=== PATIENT | female | born 1970 | race Caucasian/White ===

== ENCOUNTER 2018-03-25 11:37 | Inpatient (IN) | payer OTHER ==
[~2018-03-25 11:37] MED LIST: SODIUM CHLORIDE 0.9% (PF) 10 ML VIAL ONE; niCARdipine 25 MG/10 ML VIAL ONE
[2018-03-25] MEDS ORDERED: MIDAZOLAM 2 MG/2 ML VIAL ONE (11:43)
[2018-03-25] MEDS ORDERED: LIDOCAINE 2% INJ 20 MG/ML (20 ML MDV) ONE (11:43)
[2018-03-25] MEDS ORDERED: LIDOCAINE 2% INJ 20 MG/ML SQ ONE (11:53)
[2018-03-25] MEDS ORDERED: SODIUM CHLORIDE 0.9% 1,000 ML IV ONE (11:54)
[2018-03-25] MEDS ORDERED: MIDAZOLAM 2 MG/2 ML VIAL IV ONE (11:56)
[2018-03-25] MEDS ORDERED: BIVALIRUDIN BOLUS 250 MG/50 ML IV ONE (12:02)
[2018-03-25] MEDS ORDERED: CLOPIDOGREL 75 MG TAB ONE (12:03)
[2018-03-25] MEDS: NITROGLYCERIN 1000MCG/10ML SYRINGE INTRACORON ONE ×2 (12:03→12:11)
[2018-03-25] MEDS ORDERED: BIVALIRUDIN 250 MG in SODIUM CHLORIDE 0.9% 40 ML IV ONE (12:03)
[2018-03-25] MEDS ORDERED: ATROPINE SULFATE 0.1 MG/ML 10ML SYRINGE IV ONE (12:09)
[2018-03-25] MEDS ORDERED: CLOPIDOGREL 75 MG TAB PO ONE (12:10)
[2018-03-25] MEDS ORDERED: ONDANSETRON 4 MG/2 ML VIAL ONE ×2 (12:18→12:23)
[2018-03-25] MEDS ORDERED: ONDANSETRON 4 MG/2 ML VIAL IVP ONE ×2 (12:20→12:24)
[2018-03-25] MEDS ORDERED: IOPAMIDOL-370 125ML BTL INJ ONE (12:21)
[2018-03-25] MEDS ORDERED: NITROGLYCERIN SL TABS 0.4 MG TAB SUBLINGUAL PRN (12:29)
[2018-03-25] MEDS ORDERED: ATROPINE SULFATE 0.1 MG/ML 10ML SYRINGE IV PRN (12:29)
[2018-03-25] MEDS ORDERED: RX INFO: IV CONTRAST WAS GIVEN 1 EACH MISC MISCELLANE PRN (12:29)
[2018-03-25] MEDS ORDERED: ZOLPIDEM 5 MG TAB PO PRN (12:29)
[2018-03-25] MEDS ORDERED: MAG HYDROX/AL HYDROX/SIMETH 30 ML CUP PO PRN (12:29)
[2018-03-25] MEDS ORDERED: SODIUM CHLORIDE 0.9% 1,000 ML IV SCH (12:30)
--- NOTE | 2018-03-25 12:39 | P.CRDCN ---
History of Present Illness Consult date: 03/25/18 Chief complaint: chest discomfort History of present illness: This is a pleasant 77-year-old female patient with long history of smoking and very significant family history of coronary artery disease presented to the emergency room at [facility] complaining of chest discomfort. She was in her usual state of health until yesterday when she started experiencing chest discomfort in the mid of the chest with radiation to the jaw and it was associated with sweating. She did not come to the emergency room last night but this morning the discomfort continues and was radiating to her back. It was severe enough to bring her to the emergency room. In the ER the EKG showed sinus rhythm with inferior ST elevation [place]. She was also bradycardic with heart rate in the 50s and she was also slightly hypotensive. The patient was transferred immediately to [facility] where she underwent an emergent heart catheterization and was found to have an acute total occlusion of the mid RCA which is a large caliber vessel and a dominant vessel. She underwent successful stenting of the mid RCA with a good angiographic results and without any complication and using a drug-eluting stent. The left main, left circumflex, and left anterior descending artery where angiographically normal. The patient tolerated the procedure very well. The procedure was performed from the right groin approach. In terms of past medical history the patient does not have any diabetes or hypertension or dyslipidemia. She does have a long history of smoking and very significant family history of coronary artery disease. Medications and Allergies Allergies Allergy/AdvReac Type Severity Reaction Status Date / Time Penicillins Allergy Anaphylaxis Verified 03/25/18 11:49 Physical Exam Vitals: Intake and Output 03/24/18 03/25/18 03/25/18 22:59 06:59 14:59 Intake Total 200 Balance 200 Intake: IV 200 Other: Weight 92.2 kg - Constitutional General appearance: no acute distress - Respiratory Respiratory: bilateral: CTA - Cardiovascular Rhythm: regular Heart sounds: normal: S1, S2 Results Current Medications Generic Name Dose Route Start Last Admin Trade Name Freq PRN Reason Stop Dose Admin Al Hydroxide/Mg Hydroxide 30 ml 03/25/18 12:29 Maalox PO Q4HR PRN Heartburn Aspirin 325 mg 03/26/18 09:00 Aspirin PO DAILY [facility] Atorvastatin Calcium 80 mg 03/25/18 21:00 Lipitor PO HS ANITA Atropine Sulfate 0.5 mg 03/25/18 12:29 Atropine IV ONCE PRN Symptomatic Bradycardia Clopidogrel Bisulfate 75 mg 03/26/18 12:31 Plavix PO DAILY [facility] Sodium Chloride 1,000 mls @ 100 mls/hr 03/25/18 12:30 Saline 0.9% IV 03/25/18 18:31 .Q10H ANITA Lisinopril 2.5 mg 03/26/18 09:00 Zestril PO DAILY ANITA Metoprolol Tartrate 12.5 mg 03/25/18 21:00 Lopressor PO BID ANITA Miscellaneous Information 1 each 03/25/18 12:29 Rx Info: Iv Contrast Was Given MISCELLANE 03/27/18 12:29 DAILY PRN Per Protocol Nitroglycerin 0.4 mg 03/25/18 12:29 Nitrostat SUBLINGUAL Q5M PRN Chest Pain Zolpidem Tartrate 5 mg 03/25/18 12:29 Ambien PO HS PRN Insomnia Intake and Output 03/24/18 03/25/18 03/25/18 22:59 06:59 14:59 Intake Total 200 Balance 200 Intake: IV 200 Other: Weight 92.2 kg Patient Weight 03/26/18 06:59 Weight 92.2 kg Assessment and Plan Assessment: assessment #[address] elevation myocardial infarction. #2 significant history of smoking #3 significant family history of coronary artery disease. Plan #1 the patient underwent successful stenting of the RCA #2 she would be on dual antiplatelet therapy along with high intensity statin as well as metoprolol and lisinopril #3 obtain an echocardiogram was Doppler to assess the LV function #4 smoking cessation was discussed with the patient as well #5 follow-up with the patient. Thank you for allowing us participate in her care and we will continue following up with the patient.
--- NOTE | 2018-03-25 13:05 | LTR ---
March 25, 2018 Re: Leopoldo Elvie Dear Dr. Mace: Ms. Elvie Mina presented to the emergency room at [facility] complaining of chest discomfort and she was diagnosed with acute inferior ST-elevation AL. She was transferred emergently to [facility] where she underwent a heart catheterization and that revealed acute total occlusion of the right coronary artery which was stented with good angiographic results. Thank you for allowing me to participate in her care and please do not hesitate to call if you have any question or concern. Sincerely, Osbaldo Nicholas MD MMANITAL / NADYAN: [id number] /
--- NOTE | 2018-03-25 13:11 | CC ---
CARDIAC CATHETERIZATION REPORT CARDIAC CATHETERIZATION AND PERCUTANEOUS CORONARY INTERVENTION DATE OF SERVICE: 03/25/2018 PERFORMING PHYSICIAN: Osbaldo Nicholas MD. PROCEDURE PERFORMED: 1. Selective right and left coronary angiogram. 2. Left heart catheterization. 3. Successful stenting of the mid RCA using 2.75 x 23 mm Xience SHIRLEY with good angiographic results. INDICATION: This is a pleasant 47-year-old female patient with significant history of smoking and significant family history of coronary artery disease presented to the emergency room at [facility] complaining of chest discomfort for the last 24 hours. She was found to be in acute inferior ST-elevation myocardial infarction and was transferred to [facility] to undergo a heart catheterization. APPROACH: Right common femoral artery. COMPLICATION: None. LEVEL OF SEDATION: Moderate with sedation length of 31 minutes. PROCEDURE DESCRIPTION: After obtaining an informed consent, the patient was brought to cardiac catheterization laboratory technician. The right common femoral artery was cannulated using micropuncture technique, and a micropuncture wire passed easily then I placed a 6-Irish sheath in the right common femoral artery. After that, I did selective right and left coronary angiogram using JR4 and JL4 catheters. I did intervene on the RCA after that, please see a separate paragraph for that. Then I did left heart catheterization using 6-Irish pigtail catheter. After that, I did close the groin using the Angio-Seal device. The procedure was completed without any complication. SELECTIVE CORONARY ANGIOGRAM: 1. The RCA is a large caliber vessel and it is a dominant vessel. The RCA is acutely and totally occluded in the midportion. 2. The left main is angiographically normal. It bifurcates into left circumflex and left anterior descending artery. 3. The left circumflex is a large caliber vessel. It is a nondominant vessel. The left circumflex system appeared to be angiographically normal. It gives rise into 2 obtuse marginal branches they are angiographically normal. 4. The LAD; the proximal LAD appeared to have mild disease only. The mid LAD appeared to be angiographically normal. The LAD distally is angiographically normal as well. The LAD gives rise in the midportion into a diagonal branch, seems to be angiographically normal. HEMODYNAMICS: The left ventricular end-diastolic pressure was 16 mmHg and no gradient was identified across the aortic valve. PCI OF THE RCA: Anticoagulation was initiated using Angiomax. Subsequently the JR4 guide and the RCA was engaged. The ronnie wire was used to wire the RCA. Subsequently I did PTCA ballooning using 2.5 x 12 mm balloon. After that I did stenting of the mid RCA using 2.75 x 23 mm Xience SHIRLEY where the stent was positioned under fluoroscopy guidance and deployed under 16 atmospheres for 20 seconds. I did post dilate the stent using 3.0 mm balloon. The procedure was completed without any complication. CONCLUSION: 1. Acute inferior ST-elevation myocardial infarction. 2. Acute total occlusion of the mid RCA which was stented using drug-eluting stent with good angiographic results and without any complication. 3. Mild disease involving the left coronary system. POSTPROCEDURE MANAGEMENT: 1. Dual antiplatelet therapy along with high-intensity statin. 2. Smoking cessation. 3. Follow up with the patient. 4. Echocardiogram with Doppler as well. MMODL / IJN: [id number] /
[2018-03-25] MEDS ORDERED: SODIUM CHLORIDE 0.9% 250 ML IV ONE (19:19)
[2018-03-25] MEDS: SODIUM CHLORIDE 0.9% 1,000 ML IV SCH (20:11)
[2018-03-25] MEDS ORDERED: ALPRAZolam 0.25 MG TAB PO PRN (20:28)
[2018-03-25] MEDS ORDERED: ONDANSETRON 4 MG/2 ML VIAL IVP PRN (20:29)
[2018-03-25] MEDS: METOPROLOL TARTRATE 12.5 MG TAB PO SCH (20:29)
[2018-03-25] MEDS ORDERED: DOPamine DRIP 800 MG in DEXTROSE/WATER 1 500ML.BAG IV SCH (20:30)
--- NOTE | 2018-03-25 20:37 | ECHOF ---
Referral Reason:ACS MEASUREMENTS -------- HEIGHT: 170.2 cm WEIGHT: 92.1 kg BP: RVIDd: 3.7 cm (< 3.3) IVSd: 1.3 cm (0.6 - 1.1) LVIDd: 4.1 cm (3.9 - 5.3) LVPWd: 1.1 cm (0.6 - 1.1) IVSs: 1.5 cm LVIDs: 2.8 cm LVPWs: 1.7 cm Ao Diam: 3.2 cm (2.0 - 3.7) AV Cusp: 1.7 cm (1.5 - 2.6) LA Diam: 3.0 cm (2.7 - 3.8) MV EXCURSION: 11.453 mm (> 18.000) MV EF SLOPE: 79 mm/s (70 - 150) EPSS: 0.6 cm MV E Pritesh: 0.71 m/s MV DecT: 223 ms MV A Pritesh: 0.53 m/s MV E/A Ratio: 1.33 RAP: 5.00 mmHg RVSP: 22.12 mmHg FINDINGS -------- Sinus rhythm. This was a technically good study. The left ventricular size is normal. There is mild concentric left ventricular hypertrophy. Overa ll left ventricular systolic function is mildly impaired with, an EF between 45 - 50 %. Basal infer ior LV wall motion is hypokinetic. The right ventricle is mild to moderately enlarged. The left atrium is normal in size. The right atrium is normal in size. The aortic valve is trileaflet, and appears structurally normal. No aortic stenosis or regurgitation. The mitral valve is normal. There is trace mitral regurgitation. Mild tricuspid regurgitation present. The right ventricular systolic pressure, as measured by Doppl er, is 22.12mmHg. There is no pulmonic regurgitation present. The aortic root size is normal. There is no pericardial effusion. CONCLUSIONS -------- 1. Sinus rhythm. 2. This was a technically good study. 3. The left ventricular size is normal. 4. There is mild concentric left ventricular hypertrophy. 5. Overall left ventricular systolic function is mildly impaired with, an EF between 45 - 50 %. 6. Basal inferior LV wall motion is hypokinetic. 7. The right ventricle is mild to moderately enlarged. 8. The left atrium is normal in size. 9. The aortic valve is trileaflet, and appears structurally normal. No aortic stenosis or regurgitati on. 10. There is trace mitral regurgitation. 11. Mild tricuspid regurgitation present. 12. The right ventricular systolic pressure, as measured by Doppler, is 22.12mmHg. 13. There is no pulmonic regurgitation present. 14. The aortic root size is normal. 15. There is no pericardial effusion. PUBLIC POLICY MEDIATOR: Radha Sanches RDCS
[2018-03-25] MEDS: ATORVASTATIN 80 MG TAB PO SCH (21:35)
[2018-03-25] MEDS: NICOTINE 21MG/24HR PATCH TRANSDERM SCH (21:36)
[2018-03-25] MEDS ORDERED: SODIUM CHLORIDE 0.9% 500 ML IV ONE (21:45)
[2018-03-26] MEDS: SODIUM CHLORIDE 0.9% 1,000 ML IV SCH (04:00)
[2018-03-26 04:43] LABS: Basophils % (A) 0 %; Eosinophils # (A) 0.1 k/uL (0-0.7); Eosinophils % (A) 1 %; HCT 35.7 % (34.0-46.0); HGB 11.8 gm/dL (11.4-16.0); Lymphocytes # (A) 3.6 k/uL (1.0-4.8); Lymphocytes % (A) 26 %; MCH 29.9 pg (25.0-35.0); MCV 90.7 fL (80.0-100.0); Mean Platelet Volume 6.6; Monocytes # (A) 0.6 k/uL (0-1.0); Monocytes % (A) 5 %; Neutrophils # (A) 9.6 k/uL (1.3-7.7); Neutrophils % (A) 68 %; Platelet Count 382 k/uL (150-450); RBC 3.94 m/uL (3.80-5.40); RDW 14.3 % (11.5-15.5); WBC 14.1 k/uL (3.8-10.6)
[2018-03-26 05:11] LABS: Anion Gap 8 mmol/L; Blood Urea Nitrogen 9 mg/dL (7-17); Calcium 8.2 mg/dL (8.4-10.2); Carbon Dioxide 21 mmol/L (22-30); Chloride 112 mmol/L (98-107); Glucose 106 mg/dL (74-99); Magnesium 1.7 mg/dL (1.6-2.3); Phosphorus 3.5 mg/dL (2.5-4.5); Potassium 3.9 mmol/L (3.5-5.1); Sodium 141 mmol/L (137-145)
[2018-03-26] MEDS ORDERED: POTASSIUM CHLORIDE ER 20 MEQ TAB.ER PO SCH (06:00)
[2018-03-26] MEDS: ESCITALOPRAM 10 MG TAB PO SCH (08:26)
[2018-03-26] MEDS: ASPIRIN 325 MG TAB PO SCH (08:26)
[2018-03-26 09:43] VITALS: BMI 31.8
[2018-03-26] MEDS ORDERED: MAGNESIUM OXIDE 400 MG TAB PO STA (13:17)
[2018-03-26] MEDS: MAGNESIUM SULFATE-D5W PMX 1 GM in DEXTROSE/WATER 1 100ML.BAG IVPB SCH (15:47)
[2018-03-26] MEDS: LISINOPRIL 2.5 MG TAB PO SCH (15:47)
[2018-03-26] MEDS: METOPROLOL TARTRATE 12.5 MG TAB PO SCH (15:48)
[2018-03-26] MEDS: CLOPIDOGREL 75 MG TAB PO SCH (15:51)
[2018-03-26] MEDS: ALPRAZolam 1 MG TAB PO PRN (15:51)
[2018-03-26] MEDS: PANTOPRAZOLE 40 MG TABLET PO SCH (16:03)
--- NOTE | 2018-03-26 18:08 | P.PN ---
Subjective Progress Note Date: 03/26/18 This is a 47-year-old female who was admitted with acute inferior wall MS. Patient had a stent placement of the RCA by Dr. Lassiter. Patient has remained stable overnight. Her groin is soft. Patient is bradycardic with rates in the 40s and 50s. Her blood pressure is about 100. She is tolerating this rate fairly well. No complaints of shortness of breath or dizziness. Patient is being transferred to telemetry unit and increase activity as tolerated. We'll going to get thyroid function studies. We'll may get an echocardiogram tomorrow. Meanwhile, we'll hold the beta blockers Objective - Vital Signs Vital signs: Vital Signs Temp 97.9 F 03/26/18 12:00 Pulse 56 L 03/26/18 12:00 Resp 17 03/26/18 12:00 BP 89/53 03/26/18 12:00 Pulse Ox 95 03/26/18 12:00 Intake & Output 03/25/18 03/26/18 03/26/18 18:59 06:59 18:59 Intake Total 800 2150.002 625 Output Total 850 1 Balance -50 2149.002 625 Weight 92 kg 92.3 kg 92.3 kg Intake: IV 200 1745 625 Sodium Chloride 0.9% 1, 1245 625 000 ml @ 125 mls/hr IV . Q8H [facility] Rx#:[id number] Sodium Chloride 0.9% 250 250 ml @ 999 mls/hr IV .Q16M ONE Rx#:[id number] Sodium Chloride 0.9% 500 250 ml @ 999 mls/hr IV .Q31M ONE Rx#:[id number] Intake, IV Titration 600 105.002 Amount DOPamine DRIP 800 mg In 5.002 Dextrose/Water 1 500ml. bag @ 3 MCG/KG/MIN 10.35 mls/hr IV .Q24H ANITA Rx#: [id number] Sodium Chloride 0.9% 1, 600 100 000 ml @ 100 mls/hr IV . Q10H ANITA Rx#:[id number] Oral 300 Output: Urine 850 0 Emesis 1 Other: Voiding Method Bedpan # Voids 1 1 - Exam GENERAL EXAM: Patient is alert and oriented and doesn't appear to be in any acute distress HEENT: Normocephalic. Normal reaction of pupils, equal size, normal range of extraocular motion. No erythema or exudates in the throat. NECK: No masses, no nuchal rigidity. CHEST: No chest wall deformity. LUNGS: Equal air entry with no crackles or wheeze. HEART: S1 and S2 normal with no audible mumurs or gallops. Regular rhythm, femorals equal on both sides.. ABDOMEN: No hepatosplenomegaly, normal bowel sounds, no guarding or rigidity. SKIN: No rashes CENTRAL NERVOUS SYSTEM: No focal deficits. EXTREMITIES: No cyanosis, clubbing or edema. - Labs CBC & Chem 7: 03/26/18 04:12 03/26/18 04:12 Labs: Abnormal Lab Results - Last 24 Hours (Table) 03/26/18 03/26/18 Range/Units 04:12 04:12 WBC 14.1 H (3.8-10.6) k/uL Neutrophils # 9.6 H (1.3-7.7) k/uL Chloride 112 H (98-107) mmol/L Carbon Dioxide 21 L (22-30) mmol/L Glucose 106 H (74-99) mg/dL Calcium 8.2 L (8.4-10.2) mg/dL Assessment and Plan (1) Bradycardia Current Visit: Yes Status: Acute Code(s): R00.1 - BRADYCARDIA, UNSPECIFIED SNOMED Code(s): 79187739 (2) STEMI (ST elevation myocardial infarction) Current Visit: Yes Status: Acute Code(s): I21.3 - ST ELEVATION (STEMI) MYOCARDIAL INFARCTION OF [facility] SITE SNOMED Code(s): 187120392 Plan: Patient could be transferred to telemetry unit. Increase activity as tolerated. Hold beta blockers. Obtain thyroid function studies.
[2018-03-26] MEDS: ATORVASTATIN 80 MG TAB PO SCH (23:22)
[2018-03-26] MEDS: NICOTINE 21MG/24HR PATCH TRANSDERM SCH (23:25)
--- NOTE | 2018-03-27 00:10 | P.CONS ---
History of Present Illness - History of Present Illness This is a pleasant 77-year-old female patient with long history of smoking and very significant family history of coronary artery disease presented to the emergency room at [facility] complaining of chest pain, which is non specific ,sever, radiating to the back , pt found to have inferior STEMI in her EKG , she was admitted for cardiac cath, stent placement of the RCA by Dr. Lassiter. today we were asked to see the pt while in ICU, was lying in bed not in distress, no chest pain or dyspena , no abd pain or fever, pt was noticed to be bradycardic at 50s , cardiology team are aware , BB were held, TSH: pending and Echo: pending Review of Systems 14 point systemic review were negative except what is mentioned in the HPI Past Medical History Past Medical History: Coronary Artery Disease (CAD), GERD/Reflux, Myocardial Infarction (AL) Additional Past Medical History / Comment(s): Hyperlipidemia, Hypotension, Last Myocardial Infarction Date:: 03/25/18 History of Any Multi-Drug Resistant Organisms: None Reported Past Surgical History: Heart Catheterization With Stent, Hysterectomy, Tonsillectomy Past Anesthesia/Blood Transfusion Reactions: No Reported Reaction Date of Last Stent Placement:: 03/25/18 Past Psychological History: Anxiety, Depression, Panic Disorder, PTSD Additional Psychological History / Comment(s): Sees a psychiatrist regularly Smoking Status: Current every day smoker Past Alcohol Use History: None Reported - Past Family History Mother Family Medical History: Coronary Artery Disease (CAD) Father Family Medical History: Coronary Artery Disease (CAD) Medications and Allergies Home Medications Medication Instructions Recorded Confirmed Type ALPRAZolam [Xanax] 1 mg PO BID 03/25/18 03/26/18 History Escitalopram [Lexapro] 10 mg PO DAILY 03/25/18 03/26/18 History Omeprazole 20 mg PO DAILY 03/25/18 03/25/18 History Allergies Allergy/AdvReac Type Severity Reaction Status Date / Time dopamine Allergy Rapid Verified 03/26/18 07:22 Heart Rate Penicillins Allergy Anaphylaxis Verified 03/25/18 13:48 ciprofloxacin [From Cipro] AdvReac Nausea & Verified 03/25/18 13:48 Vomiting & Diarrhea Tetracyclines AdvReac "RUINED Verified 03/25/18 13:48 TEETH" Physical Exam Vitals: Vital Signs Temp Pulse Pulse Resp BP BP Pulse Ox 03/26/18 23:19 16 03/26/18 23:16 98.0 F 45 L 16 106/75 94 L 03/26/18 20:00 98.8 F 44 L 16 98/66 97 03/26/18 17:00 97.6 F 46 L 16 95 03/26/18 12:00 97.9 F 56 L 17 89/53 95 03/26/18 11:00 48 L 13 91/57 92 L 03/26/18 10:00 47 L 16 89/62 95 03/26/18 09:00 47 L 15 86/49 96 03/26/18 08:00 98.0 F 49 L 16 82/67 94 L 03/26/18 07:00 50 L 16 85/60 97 03/26/18 06:30 48 L 16 80/54 97 03/26/18 06:00 50 L 20 82/55 96 03/26/18 05:30 48 L 22 77/50 96 03/26/18 05:00 50 L 23 85/47 97 03/26/18 04:30 97.9 F 48 L 23 76/52 96 03/26/18 04:00 58 L 20 81/56 97 03/26/18 03:30 51 L 17 92/57 97 03/26/18 03:00 49 L 22 92/57 97 03/26/18 02:30 51 L 18 92/53 97 03/26/18 02:00 51 L 25 H 91/56 96 03/26/18 01:30 51 L 22 81/66 97 03/26/18 01:00 50 L 23 81/55 97 03/26/18 00:30 55 L 22 84/58 97 03/26/18 00:00 97.2 F L 50 L 23 90/60 97 Intake and Output 03/26/18 03/26/18 03/27/18 14:59 22:59 06:59 Intake Total 625 500 Output Total 0 Balance 625 500 0 Intake: IV 625 Sodium Chloride 0.9% 1, 625 000 ml @ 125 mls/hr IV . Q8H [facility] Rx#:[id number] Oral 500 Output: Emesis 0 Other: Voiding Method Toilet Toilet # Voids 1 0 1 Weight 92.3 kg general : AAOx3 . no distress H&N: atrumatic , normocephalic CVS: S1,S2 , Regular rhythm but slow , no murmur Lungs: B/L CTA, no wheezing abd: soft, NT ,ND, +ve BS Ext: no edema Results CBC & Chem 7: 03/26/18 04:12 03/26/18 04:12 Labs: Abnormal Lab Results - Last 24 Hours (Table) 03/26/18 03/26/18 Range/Units 04:12 04:12 WBC 14.1 H (3.8-10.6) k/uL Neutrophils # 9.6 H (1.3-7.7) k/uL Chloride 112 H (98-107) mmol/L Carbon Dioxide 21 L (22-30) mmol/L Glucose 106 H (74-99) mg/dL Calcium 8.2 L (8.4-10.2) mg/dL Assessment and Plan Assessment: -Acute infecior STEMI, s/p cardiac cath and stent placement -HTN Plan: pt symptoms are improving, no cp or dyspnea, pt remains bradycardic about 50s, and BP is on low-normal side, pt is asymptomatic , lying in bed ,cardilogy team recommended TSH and echocardiogram which are still pending . pt is on asa, plavix and statin. she is on lexapro for mood disorder however she denies to me depression currently. on Lisinopril for HTN, xanax for anxiety
[2018-03-27 04:35] LABS: Basophils % (A) 0 %; Eosinophils % (A) 0 %; HCT 34.9 % (34.0-46.0); HGB 11.2 gm/dL (11.4-16.0); Lymphocytes # (A) 3.5 k/uL (1.0-4.8); Lymphocytes % (A) 40 %; MCH 29.6 pg (25.0-35.0); MCHC 32.2 g/dL (31.0-37.0); Mean Platelet Volume 6.8; Monocytes # (A) 0.5 k/uL (0-1.0); Monocytes % (A) 6 %; Neutrophils # (A) 4.7 k/uL (1.3-7.7); Neutrophils % (A) 53 %; Platelet Count 318 k/uL (150-450); RDW 14.1 % (11.5-15.5); WBC 8.8 k/uL (3.8-10.6)
[2018-03-27 04:44] LABS: Anion Gap 5 mmol/L; Blood Urea Nitrogen 6 mg/dL (7-17); Calcium 8.8 mg/dL (8.4-10.2); Carbon Dioxide 27 mmol/L (22-30); Chloride 109 mmol/L (98-107); Glucose 92 mg/dL (74-99); Magnesium 1.9 mg/dL (1.6-2.3); Potassium 3.8 mmol/L (3.5-5.1); Sodium 141 mmol/L (137-145)
[2018-03-27 04:54] VITALS: TEMP 98.1
[2018-03-27] MEDS ORDERED: POTASSIUM CHLORIDE ER 20 MEQ TAB.ER PO SCH (07:00)
[2018-03-27] MEDS: PANTOPRAZOLE 40 MG TABLET PO SCH (09:46)
[2018-03-27] MEDS: ASPIRIN 325 MG TAB PO SCH (09:46)
[2018-03-27] MEDS: ALPRAZolam 1 MG TAB PO PRN (09:46)
[2018-03-27] MEDS: ESCITALOPRAM 10 MG TAB PO SCH (09:47)
[2018-03-27] MEDS: CLOPIDOGREL 75 MG TAB PO SCH (09:47)
--- NOTE | 2018-03-27 13:06 | P.PN ---
Subjective This is a pleasant 77-year-old female patient with long history of smoking and very significant family history of coronary artery disease presented to the emergency room at [facility] complaining of chest pain, which is non specific ,sever, radiating to the back , pt found to have inferior STEMI in her EKG , she was admitted for cardiac cath, stent placement of the RCA by Dr. Lassiter. today we were asked to see the pt while in ICU, was lying in bed not in distress, no chest pain or dyspena , no abd pain or fever, pt was noticed to be bradycardic at 50s , cardiology team are aware , BB were held, TSH: pending and Echo: EF 45-50%, inferior LV wall motion is hypokinetic Objective - Vital Signs Vital signs: Vital Signs Temp 98.1 F 03/27/18 04:53 Pulse 45 L 03/27/18 04:53 Resp 14 03/27/18 11:39 BP 93/51 03/27/18 04:53 Pulse Ox 95 03/27/18 07:19 Intake & Output 03/26/18 03/27/18 03/27/18 18:59 06:59 18:59 Intake Total 625 500 Output Total 0 0 Balance 625 500 0 Weight 92.3 kg 94.9 kg Intake: IV 625 Sodium Chloride 0.9% 1, 625 000 ml @ 125 mls/hr IV . Q8H [facility] Rx#:[id number] Oral 500 Output: Urine 0 Emesis 0 Other: Voiding Method Toilet Toilet # Voids 1 1 2 - Labs CBC & Chem 7: 03/27/18 04:10 03/27/18 04:10 Labs: Abnormal Lab Results - Last 24 Hours (Table) 03/27/18 03/27/18 Range/Units 04:10 04:10 Hgb 11.2 L (11.4-16.0) gm/dL Chloride 109 H (98-107) mmol/L BUN 6 L (7-17) mg/dL Assessment and Plan Assessment: -Acute infecior STEMI, s/p cardiac cath and stent placement -HTN -Bradycardia with low normal BP, asymptomatic Plan: pt symptoms are improving, no cp or dyspnea, pt remains bradycardic about were 45-50s, and BP is on low-normal side, pt is asymptomatic and recommendation as per cardiology team, lying in bed ,cardiology team recommended TSH : pending , please f/u the result, echocardiogram: EF 45-50%, hypokinetic inferior elderly. pt is on asa, plavix and statin. she is on lexapro for mood disorder however she denies to me depression currently. on Lisinopril for HTN, xanax for anxiety Patient states she doesn't have insurance however she is able to go and see her family doctor Vanesa and she is willing to make an appointment within 1 week of discharge. Patient also said she will do self pay for the cardiology follow-up appointment Thank you for consulting us, feel free to contact us for any further clarification or question
--- NOTE | 2018-03-27 16:15 | P.DS ---
Providers Date of admission: 03/25/18 12:49 Attending physician: Osbaldo Nicholas Consults: 03/25/18 12:29 Consult Physician Routine Consulting Provider: [facility] Consult Reason/Comments: Post Interventional patient Do you want consulting provider notified?: Already Contacted Placement Type Exists?: Yes 03/26/18 13:16 Consult Physician Routine Consulting Provider: Luis Heck Consult Reason/Comments: medical management Do you want consulting provider notified?: Yes Primary care physician: Rodri Ogden - Discharge Diagnosis(es) (1) Bradycardia Current Visit: Yes Status: Acute (2) STEMI (ST elevation myocardial infarction) Current Visit: Yes Status: Acute Hospital Course: This 47-year-old female presented to [facility] with evidence of chest pain and myocardial infarction. Patient had a cardiac catheterization and stent placement by Dr. Lassiter. Patient had stent placement of the RCA. Subsequent the the stent placement, Patient has remained stable. Patient remained slightly hypotensive and bradycardic. It appears this is a chronic problem for her. Thyroid function studies are normal. Patient is tolerating activity well. Patient wishes to be discharged home. No arrhythmias are detected except for bradycardia. Patient is taken off the beta damion. Will continue small dose of CARMELA inhibitor along with the dual antiplatelet agent. Follow-up with Dr. Lassiter as an outpatient. Patient to increase her activity Cadley and avoid any heavy lifting, pushing or pulling Plan - Discharge Summary Discharge Rx Participant: Yes New Discharge Prescriptions: New Nicotine 21Mg/24Hr Patch [Habitrol] 1 patch TRANSDERM HS #7 patch Aspirin 325 mg PO DAILY #30 tab Atorvastatin [Lipitor] 80 mg PO HS #30 tab Clopidogrel [Plavix] 75 mg PO DAILY #30 tab Escitalopram [Lexapro] 10 mg PO DAILY tab Lisinopril [Zestril] 2.5 mg PO DAILY #30 tab Nitroglycerin Sl Tabs [Nitrostat] 0.4 mg SUBLINGUAL Q5M PRN #25 tab PRN Reason: Chest Pain Continue Omeprazole 20 mg PO DAILY ALPRAZolam [Xanax] 1 mg PO BID Escitalopram [Lexapro] 10 mg PO DAILY Discharge Medication List ALPRAZolam [Xanax] 1 mg PO BID 03/25/18 [History] Escitalopram [Lexapro] 10 mg PO DAILY 03/25/18 [History] Omeprazole 20 mg PO DAILY 03/25/18 [History] Aspirin 325 mg PO DAILY #30 tab 03/27/18 [Rx] Atorvastatin [Lipitor] 80 mg PO HS #30 tab 03/27/18 [Rx] Clopidogrel [Plavix] 75 mg PO DAILY #30 tab 03/27/18 [Rx] Escitalopram [Lexapro] 10 mg PO DAILY tab 03/27/18 [Rx] Lisinopril [Zestril] 2.5 mg PO DAILY #30 tab 03/27/18 [Rx] Nicotine 21Mg/24Hr Patch [Habitrol] 1 patch TRANSDERM HS #7 patch 03/27/18 [Rx] Nitroglycerin Sl Tabs [Nitrostat] 0.4 mg SUBLINGUAL Q5M PRN #25 tab 03/27/18 [Rx ]
[2018-03-27 18:30] VITALS: BP 107/62; PULSE 56; RESP 14
[2018-03-27] MEDS: LISINOPRIL 2.5 MG TAB PO SCH (18:36)
[2018-03-27] MEDS: ATORVASTATIN 80 MG TAB PO SCH (18:36)
== END 2018-03-27 18:48 | disposition home or self-care (01) | DRG 247 ==
LOC: 6ICU 12:49 → 6SEL 03-27 13:25
PROVIDERS: ADMIT Internal Medicine Interventional Cardiology; ATTEND Internal Medicine Interventional Cardiology
PROC: B2111ZZ Fluoroscopy of Multiple Coronary Arteries using Low Osmolar Contrast (ICD-10-PCS; 2018-03-25)
PROC: 027034Z Dilation of Coronary Artery, One Artery with Drug-eluting Intraluminal Device, Percutaneous Approach (ICD-10-PCS; principal; 2018-03-25 11:33)
PROC: 4A023N7 Measurement of Cardiac Sampling and Pressure, Left Heart, Percutaneous Approach (ICD-10-PCS; 2018-03-25 11:33)
DX: I21.19 ST elevation (STEMI) myocardial infarction involving other coronary artery of inferior wall (principal); E78.5 Hyperlipidemia, unspecified; F17.210 Nicotine dependence, cigarettes, uncomplicated; F41.0 Panic disorder [episodic paroxysmal anxiety]; F43.10 Post-traumatic stress disorder, unspecified; I10 Essential (primary) hypertension; I25.10 Atherosclerotic heart disease of native coronary artery without angina pectoris; K21.9 Gastro-esophageal reflux disease without esophagitis; F32.9 Major depressive disorder, single episode, unspecified; F41.9 Anxiety disorder, unspecified; I95.9 Hypotension, unspecified; R00.1 Bradycardia, unspecified; Z88.1 Allergy status to other antibiotic agents; Z88.0 Allergy status to penicillin; Z88.8 Allergy status to other drugs, medicaments and biological substances; Z90.710 Acquired absence of both cervix and uterus; Z79.899 Other long term (current) drug therapy; Z71.6 Tobacco abuse counseling; Z82.49 Family history of ischemic heart disease and other diseases of the circulatory system
CPT/HCPCS: 80048; 83735; 84100; 84443; 85025; 93306; 93458

== ENCOUNTER 2018-08-25 16:12 | Emergency (ER) | payer OTHER ==
[2018-08-25 16:19] VITALS: TEMP 98.4
[2018-08-25] MEDS ORDERED: NITROGLYCERIN SL TABS 0.4 MG TAB SUBLINGUAL STA (16:36)
--- NOTE | 2018-08-25 16:40 | ED ---
SOB HPI - General Chief Complaint: Shortness of Breath Stated Complaint: Sob Time Seen by Provider: 08/25/18 16:25 Source: patient, RN notes reviewed, old records reviewed Mode of arrival: ambulatory Limitations: no limitations - History of Present Illness Initial Comments: This a 48-year-old female with a history of a myocardial infarction with a stent placement in the RCA on March 25 of this year states she's been having shortness of breath since that time that it has gotten progressively worse where she has her exertional dyspnea and orthopnea. She is a smoker who continues to smoke she states she had chest pain last evening lasting about 3 minutes. Today she states she has chest tightness about 3/10 severity no fevers chills nausea vomiting sweats no cough or phlegm production. No swelling to her lower extremities. She states she's never been diagnosed with a lung disease. She did take 324 mg aspirin today she also states she has irregular heartbeat which they are trying to control she did not take any nitroglycerin because she feared the heart rate would go more irregular. MD Complaint: shortness of breath, chest pain - Related Data Home Medications Medication Instructions Recorded Confirmed ALPRAZolam [Xanax] 3 mg PO DAILY PRN 03/25/18 08/25/18 Omeprazole 20 mg PO DAILY 03/25/18 08/25/18 Diltiazem Oral [Cardizem Oral] 30 mg PO TID 08/25/18 08/25/18 Previous Rx's Medication Instructions Recorded Aspirin 325 mg PO DAILY #30 tab 03/27/18 Atorvastatin [Lipitor] 80 mg PO HS #30 tab 03/27/18 Clopidogrel [Plavix] 75 mg PO DAILY #30 tab 03/27/18 Nitroglycerin Sl Tabs [Nitrostat] 0.4 mg SUBLINGUAL Q5M PRN #25 tab 03/27/18 Ipratropium/Albuterol Sulfate 2 puff INHALATION QID #1 inhaler 08/25/18 [Combivent Respimat Inhaler] predniSONE 20 mg PO BID #10 tab 08/25/18 Allergies Allergy/AdvReac Type Severity Reaction Status Date / Time dopamine Allergy Rapid Verified 08/25/18 16:28 Heart Rate Penicillins Allergy Anaphylaxis Verified 08/25/18 16:28 ciprofloxacin [From Cipro] AdvReac Nausea & Verified 08/25/18 16:28 Vomiting & Diarrhea metoprolol AdvReac Nausea & Verified 08/25/18 16:28 Vomiting Tetracyclines AdvReac "RUINED Verified 08/25/18 16:28 TEETH" Review of Systems ROS Statement: Those systems with pertinent positive or pertinent negative responses have been documented in the HPI. ROS Other: All systems not noted in ROS Statement are negative. Past Medical History Past Medical History: Coronary Artery Disease (CAD), GERD/Reflux, Myocardial Infarction ([place]) Additional Past Medical History / Comment(s): Hyperlipidemia, Hypotension, Last Myocardial Infarction Date:: 03/25/18 History of Any Multi-Drug Resistant Organisms: None Reported Past Surgical History: Heart Catheterization With Stent, Hysterectomy, Tonsillectomy Past Anesthesia/Blood Transfusion Reactions: No Reported Reaction Date of Last Stent Placement:: 03/25/18 Past Psychological History: Anxiety, Depression, Panic Disorder, PTSD Smoking Status: Current every day smoker Past Alcohol Use History: None Reported Past Drug Use History: None Reported - Past Family History Mother Family Medical History: Coronary Artery Disease (CAD) Father Family Medical History: Coronary Artery Disease (CAD) General Exam - General Exam Comments Initial Comments: This is a well-developed well-nourished awake alert oriented 3 female Limitations: no limitations General appearance: alert, anxious Head exam: Present: atraumatic, normocephalic, normal inspection Eye exam: Present: normal appearance, PERRL, EOMI. Absent: scleral icterus, conjunctival injection, periorbital swelling ENT exam: Present: normal exam, mucous membranes moist Neck exam: Present: normal inspection. Absent: tenderness, meningismus, lymphadenopathy Respiratory exam: Present: decreased breath sounds (Slightly diminished breath sounds). Absent: respiratory distress, wheezes, rales, rhonchi, stridor Cardiovascular Exam: Present: regular rate, normal rhythm, normal heart sounds. Absent: systolic murmur, diastolic murmur, rubs, gallop, clicks GI/Abdominal exam: Present: soft, normal bowel sounds. Absent: distended, tenderness, guarding, rebound, rigid Extremities exam: Present: normal inspection, full ROM, normal capillary refill. Absent: tenderness, pedal edema, joint swelling, calf tenderness Back exam: Present: normal inspection Neurological exam: Present: alert, oriented X3, CN II-XII intact Psychiatric exam: Present: normal affect, normal mood Skin exam: Present: warm, dry, intact, normal color. Absent: rash Course Vital Signs 08/25/1818 08/25/18 16:17 16:59 17:12 Temperature 98.4 F Pulse Rate 94 84 80 Respiratory 20 18 Rate Blood Pressure 138/92 127/93 O2 Sat by Pulse 100 98 Oximetry 08/25/18 17:17 Temperature Pulse Rate 82 Respiratory Rate Blood Pressure O2 Sat by Pulse Oximetry - Reevaluation(s) Reevaluation #1: 08/25/18 17:06 Patient states the nitroglycerin did not help but made her short of breath. Reevaluation #2: 08/25/18 18:30 Reevaluation patient reveals marked improvement in her aeration she feels much improved at this time after treatment. Medical Decision Making - Medical Decision Making Patient did get marked improvement after the therapy was rendered. Patient does demonstrate evidence of a spasm. We discharged on appropriate medication. She was encouraged to stop smoking. She will follow-up with her doctor. - Lab Data Result diagrams: 08/25/18 17:05 08/25/18 17:05 Lab Results 08/25/18 08/25/18 08/25/18 Range/Units 17:05 17:05 17:05 WBC 12.6 H (3.8-10.6) k/uL RBC 4.78 (3.80-5.40) m/uL Hgb 14.8 (11.4-16.0) gm/dL Hct 42.6 (34.0-46.0) % MCV 89.2 (80.0-100.0) fL MCH 30.9 (25.0-35.0) pg MCHC 34.7 (31.0-37.0) g/dL RDW 13.1 (11.5-15.5) % Plt Count 391 (150-450) k/uL Neutrophils % 64 % Lymphocytes % 29 % Monocytes % 5 % Eosinophils % 1 % Basophils % 0 % Neutrophils # 8.1 H (1.3-7.7) k/uL Lymphocytes # 3.6 (1.0-4.8) k/uL Monocytes # 0.6 (0-1.0) k/uL Eosinophils # 0.1 (0-0.7) k/uL Basophils # 0.0 (0-0.2) k/uL PT (9.0-12.0) sec INR (<1.2) APTT (22.0-30.0) sec D-Dimer (<0.60) mg/L FEU Sodium 140 (137-145) mmol/L Potassium 3.8 (3.5-5.1) mmol/L Chloride 110 H (98-107) mmol/L Carbon Dioxide 22 (22-30) mmol/L Anion Gap 8 mmol/L BUN 7 (7-17) mg/dL Creatinine 0.90 (0.52-1.04) mg/dL Est GFR (CKD-EPI)AfAm 89 (>60 ml/min/1.73 sqM) Est GFR (CKD-EPI)NonAf 77 (>60 ml/min/1.73 sqM) Glucose 100 H (74-99) mg/dL Calcium 9.7 (8.4-10.2) mg/dL Magnesium 1.8 (1.6-2.3) mg/dL Total Bilirubin 0.6 (0.2-1.3) mg/dL AST 15 (14-36) U/L ALT 23 (9-52) U/L Alkaline Phosphatase 84 (38-126) U/L Total Creatine Kinase 58 (30-135) U/L CK-MB (CK-2) 0.3 (0.0-2.4) ng/mL CK-MB (CK-2) Rel Index 0.5 Troponin I <0.012 (0.000-0.034) ng/mL NT-Pro-B Natriuret Pep pg/mL Total Protein 6.6 (6.3-8.2) g/dL Albumin 3.9 (3.5-5.0) g/dL 08/25/18 08/25/18 Range/Units 17:05 17:05 WBC (3.8-10.6) k/uL RBC (3.80-5.40) m/uL Hgb (11.4-16.0) gm/dL Hct (34.0-46.0) % MCV (80.0-100.0) fL MCH (25.0-35.0) pg MCHC (31.0-37.0) g/dL RDW (11.5-15.5) % Plt Count (150-450) k/uL Neutrophils % % Lymphocytes % % Monocytes % % Eosinophils % % Basophils % % Neutrophils # (1.3-7.7) k/uL Lymphocytes # (1.0-4.8) k/uL Monocytes # (0-1.0) k/uL Eosinophils # (0-0.7) k/uL Basophils # (0-0.2) k/uL PT 10.0 (9.0-12.0) sec INR 1.0 (<1.2) APTT 24.7 (22.0-30.0) sec D-Dimer 0.55 (<0.60) mg/L FEU Sodium (137-145) mmol/L Potassium (3.5-5.1) mmol/L Chloride (98-107) mmol/L Carbon Dioxide (22-30) mmol/L Anion Gap mmol/L BUN (7-17) mg/dL Creatinine (0.52-1.04) mg/dL Est GFR (CKD-EPI)AfAm (>60 ml/min/1.73 sqM) Est GFR (CKD-EPI)NonAf (>60 ml/min/1.73 sqM) Glucose (74-99) mg/dL Calcium (8.4-10.2) mg/dL Magnesium (1.6-2.3) mg/dL Total Bilirubin (0.2-1.3) mg/dL AST (14-36) U/L ALT (9-52) U/L Alkaline Phosphatase (38-126) U/L Total Creatine Kinase (30-135) U/L CK-MB (CK-2) (0.0-2.4) ng/mL CK-MB (CK-2) Rel Index Troponin I (0.000-0.034) ng/mL NT-Pro-B Natriuret Pep 28 pg/mL Total Protein (6.3-8.2) g/dL Albumin (3.5-5.0) g/dL - EKG Data -: EKG Interpreted by Me EKG shows normal: sinus rhythm (Sinus rhythm rate of 87 appear interval 150 to QRS duration 86 QT since QTC 366/[address]-T wave changes this is compared with EKG dated 03/25/18 and ) - Radiology Data Radiology results: image reviewed (I did review the imaging no evidence of infiltrate or acute markings.) Disposition Clinical Impression: Acute bronchospasm, Smoking Disposition: HOME SELF-CARE Condition: Good Instructions: Bronchospasm (ED), How to Stop Smoking (ED) Prescriptions: Ipratropium/Albuterol Sulfate [Combivent Respimat Inhaler] 2 puff INHALATION QID #1 inhaler predniSONE 20 mg PO BID #10 tab Is patient prescribed a controlled substance at d/c from ED?: No Referrals: Melvi Mace MD [Primary Care Provider] - 1-2 days
[2018-08-25 17:00] VITALS: RESP 18
[2018-08-25] MEDS ORDERED: IPRATROPIUM-ALBUTEROL 3 ML NEB INHALATION STA (17:04)
[2018-08-25 17:15] LABS: Basophils % (A) 0 %; Eosinophils # (A) 0.1 k/uL (0-0.7); Eosinophils % (A) 1 %; HCT 42.6 % (34.0-46.0); HGB 14.8 gm/dL (11.4-16.0); Lymphocytes # (A) 3.6 k/uL (1.0-4.8); Lymphocytes % (A) 29 %; MCH 30.9 pg (25.0-35.0); MCHC 34.7 g/dL (31.0-37.0); MCV 89.2 fL (80.0-100.0); Mean Platelet Volume 6.4; Monocytes # (A) 0.6 k/uL (0-1.0); Monocytes % (A) 5 %; Neutrophils # (A) 8.1 k/uL (1.3-7.7); Neutrophils % (A) 64 %; Platelet Count 391 k/uL (150-450); RBC 4.78 m/uL (3.80-5.40); RDW 13.1 % (11.5-15.5); WBC 12.6 k/uL (3.8-10.6)
[2018-08-25 17:26] LABS: Albumin 3.9 g/dL (3.5-5.0); Calcium 9.7 mg/dL (8.4-10.2); Magnesium 1.8 mg/dL (1.6-2.3); Potassium 3.8 mmol/L (3.5-5.1); Total Bilirubin 0.6 mg/dL (0.2-1.3); Total Protein 6.6 g/dL (6.3-8.2)
[2018-08-25 17:32] LABS: Creatine Kinase 58 U/L (30-135)
[2018-08-25 17:38] LABS: D-Dimer 0.55 mg/L FEU (<0.60); Partial Thromboplastin Time 24.7 sec (22.0-30.0)
[2018-08-25 17:42] LABS: Creatine Kinase MB 0.3 ng/mL (0.0-2.4)
[2018-08-25 17:45] LABS: Troponin I <0.012 ng/mL (0.000-0.034)
[2018-08-25] MEDS ORDERED: predniSONE 50 MG TAB PO STA (18:30)
--- NOTE | 2018-08-25 18:32 | XR ---
EXAMINATION TYPE: XR chest 2V DATE OF EXAM: 08/25/2018 COMPARISON: NONE HISTORY: Short of breath TECHNIQUE: Frontal and lateral views of the chest are obtained. FINDINGS: Heart and mediastinum are normal. Lungs are clear. Diaphragm is normal. Bony thorax appear s normal. There are chest leads. IMPRESSION: Normal chest. Normal heart.
[2018-08-25 18:44] VITALS: BP 128/85; PULSE 88
== END 2018-08-25 18:55 | disposition home or self-care (01) ==
LOC: EC 16:12
DX: J98.01 Acute bronchospasm (principal); K21.9 Gastro-esophageal reflux disease without esophagitis; I25.10 Atherosclerotic heart disease of native coronary artery without angina pectoris; I25.2 Old myocardial infarction; F17.200 Nicotine dependence, unspecified, uncomplicated; Z79.82 Long term (current) use of aspirin; Z79.899 Other long term (current) drug therapy; Z88.0 Allergy status to penicillin; Z88.1 Allergy status to other antibiotic agents; Z88.8 Allergy status to other drugs, medicaments and biological substances; Z95.5 Presence of coronary angioplasty implant and graft
CPT/HCPCS: 36415; 94640; 93005; 85379; 83880; 80053; 82550; 82553; 83735; 84484; 85025; 85610; 85730; 71046; 99285; J7512

== ENCOUNTER 2019-02-11 22:08 | Emergency (ER) | payer OTHER ==
--- NOTE | 2019-02-11 22:24 | ED ---
Psych HPI - General Source: RN notes reviewed, old records reviewed - History of Present Illness Complaint: suicidal ideation, feels depressed -: unknown Associated Psychiatric Symptoms: depression, suicidal ideation History of same: Yes Quality: intermittent, getting worse Improves With: none Worsens With: none Associated Symptoms: denies other symptoms Treatments Prior to Arrival: placed on mental health hold If Self Harm: admits thoughts of self harm <Roque Mead - Last Filed: 02/11/19 23:51> <Olive Crocker - Last Filed: 02/12/19 03:45> - General Stated Complaint: Mental Health Time Seen by Provider: 02/11/19 22:21 - History of Present Illness Initial Comments: This is a 48-year-old female the ER for evaluation. Patient is currently suicidal with plan, not Taking her medications. Denies any other complaints (Roque Mead) - Related Data Home Medications Medication Instructions Recorded Confirmed Omeprazole 20 mg PO DAILY 03/25/18 02/11/19 ALPRAZolam [Xanax] 0.5 - 1 mg PO TID PRN 02/11/19 02/11/19 Aspirin EC [Ecotrin Low Dose] 81 mg PO DAILY 02/11/19 02/11/19 Diltiazem HCl [Diltiazem 24Hr ER] 120 mg PO DAILY 02/11/19 02/11/19 Previous Rx's Medication Instructions Recorded Atorvastatin [Lipitor] 80 mg PO HS #30 tab 03/27/18 Clopidogrel [Plavix] 75 mg PO DAILY #30 tab 03/27/18 Allergies Allergy/AdvReac Type Severity Reaction Status Date / Time dopamine Allergy Rapid Verified 02/11/19 23:41 Heart Rate Penicillins Allergy Anaphylaxis Verified 02/11/19 23:41 ciprofloxacin [From Cipro] AdvReac Nausea & Verified 02/11/19 23:41 Vomiting & Diarrhea metoprolol AdvReac Nausea & Verified 02/11/19 23:41 Vomiting Tetracyclines AdvReac "RUINED Verified 02/11/19 23:41 TEETH" Review of Systems ROS Other: All systems not noted in ROS Statement are negative. <Roque Mead - Last Filed: 02/11/19 23:51> ROS Other: All systems not noted in ROS Statement are negative. <Olive Crocker - Last Filed: 02/12/19 03:45> ROS Statement: Those systems with pertinent positive or pertinent negative responses have been documented in the HPI. Past Medical History Past Medical History: Coronary Artery Disease (CAD), GERD/Reflux, Myocardial In farction ([place]) Additional Past Medical History / Comment(s): Hyperlipidemia, Hypotension, Last Myocardial Infarction Date:: 03/25/18 History of Any Multi-Drug Resistant Organisms: None Reported Past Surgical History: Heart Catheterization With Stent, Hysterectomy, Tonsillectomy Past Anesthesia/Blood Transfusion Reactions: No Reported Reaction Date of Last Stent Placement:: 03/25/18 Past Psychological History: Anxiety, Depression, Panic Disorder, PTSD Smoking Status: Current every day smoker Past Alcohol Use History: None Reported Past Drug Use History: None Reported - Past Family History Mother Family Medical History: Coronary Artery Disease (CAD) Father Family Medical History: Coronary Artery Disease (CAD) <Roque Mead - Last Filed: 02/11/19 23:51> General Exam General appearance: alert, in no apparent distress, anxious Head exam: Present: atraumatic, normocephalic, normal inspection Eye exam: Present: normal appearance, PERRL, EOMI. Absent: scleral icterus, conjunctival injection, periorbital swelling ENT exam: Present: normal exam, mucous membranes moist Neck exam: Present: normal inspection. Absent: tenderness, meningismus, lymphadenopathy Respiratory exam: Present: normal lung sounds bilaterally. Absent: respiratory distress, wheezes, rales, rhonchi, stridor Cardiovascular Exam: Present: regular rate, normal rhythm, normal heart sounds. Absent: systolic murmur, diastolic murmur, rubs, gallop, clicks GI/Abdominal exam: Present: soft, normal bowel sounds. Absent: distended, tenderness, guarding, rebound, rigid Extremities exam: Present: normal inspection, full ROM, normal capillary refill. Absent: tenderness, pedal edema, joint swelling, calf tenderness Back exam: Present: normal inspection Neurological exam: Present: alert, oriented X3, CN II-XII intact Psychiatric exam: Present: normal affect, normal mood Skin exam: Present: warm, dry, intact, normal color. Absent: rash <Roque Mead - Last Filed: 02/11/19 23:51> Course <Roque Mead Last Filed: 02/11/19 23:51> Vital Signs 02/11/19 02/12/19 22:13 03:34 Temperature 98.5 F Pulse Rate 103 H 80 Respiratory 20 14 Rate Blood Pressure 150/102 120/88 O2 Sat by Pulse 96 95 Oximetry - Reevaluation(s) Reevaluation #1: 02/11/19 23:51 Patient's medically clear for psychiatric evaluation (Roque Mead) Disposition <Roque Mead - Last Filed: 02/11/19 23:51> Is patient prescribed a controlled substance at d/c from ED?: No <Olive Crocker - Last Filed: 02/12/19 03:45> Clinical Impression: Depression Disposition: HOME SELF-CARE Condition: Stable Referrals: Melvi Mace MD [Primary Care Provider] - 1-2 days
[2019-02-11 22:33] VITALS: TEMP 98.5
[2019-02-12] MEDS ORDERED: ACETAMINOPHEN TAB 325 MG TAB PO STA
[2019-02-12 03:35] VITALS: BP 120/88; PULSE 80; RESP 14
== END 2019-02-12 04:05 | disposition home or self-care (01) ==
LOC: EC 22:08
DX: F32.9 Major depressive disorder, single episode, unspecified (principal); R45.851 Suicidal ideations; I25.10 Atherosclerotic heart disease of native coronary artery without angina pectoris; K21.9 Gastro-esophageal reflux disease without esophagitis; I25.2 Old myocardial infarction; F17.200 Nicotine dependence, unspecified, uncomplicated; Z79.82 Long term (current) use of aspirin; Z79.899 Other long term (current) drug therapy; Z88.0 Allergy status to penicillin; Z88.1 Allergy status to other antibiotic agents; Z88.8 Allergy status to other drugs, medicaments and biological substances; Z95.5 Presence of coronary angioplasty implant and graft
CPT/HCPCS: 99285

== ENCOUNTER 2020-01-18 10:15 | Emergency (ER) | payer OTHER ==
[2020-01-18 10:20] VITALS: RESP 18
[2020-01-18] MEDS ORDERED: ONDANSETRON 4 MG/2 ML VIAL IVP STA (10:35)
[2020-01-18] MEDS ORDERED: SODIUM CHLORIDE 0.9% 1,000 ML IV STA ×2 (10:35)
[2020-01-18] MEDS ORDERED: LORazepam 2 MG/ML INJ IV STA (10:37)
--- NOTE | 2020-01-18 10:40 | ED ---
General Adult HPI - General Chief complaint: Recheck/Abnormal Lab/Rx Stated complaint: no bowel movement for a month/vomiting Time Seen by Provider: 01/18/20 10:24 Source: patient, RN notes reviewed, old records reviewed Mode of arrival: ambulatory Limitations: no limitations - History of Present Illness Initial comments: Patient a 49-year-old female who presents for his pharmacy today with nausea vomiting chronic constipation. Patient reports that she has not had normal bowel movements over a year. She reports that she has to manually disimpact h erself to have a bowel movement. She states that she's not having hard time passing gas. Patient states she's had no fevers or chills. Denies any chest pain shortness breath. - Related Data Home Medications Medication Instructions Recorded Confirmed Omeprazole 20 mg PO DAILY 03/25/18 02/11/19 ALPRAZolam [Xanax] 0.5 - 1 mg PO TID PRN 02/11/19 02/11/19 Aspirin EC [Ecotrin Low Dose] 81 mg PO DAILY 02/11/19 02/11/19 Diltiazem HCl [Diltiazem 24Hr ER] 120 mg PO DAILY 02/11/19 02/11/19 Previous Rx's Medication Instructions Recorded Atorvastatin [Lipitor] 80 mg PO HS #30 tab 03/27/18 Clopidogrel [Plavix] 75 mg PO DAILY #30 tab 03/27/18 Metoclopramide [Reglan] 10 mg PO ACHS #20 tab 01/18/20 Allergies Allergy/AdvReac Type Severity Reaction Status Date / Time dopamine Allergy Rapid Verified 01/18/20 10:20 Heart Rate Penicillins Allergy Anaphylaxis Verified 01/18/20 10:20 ciprofloxacin [From Cipro] AdvReac Nausea & Verified 01/18/20 10:20 Vomiting & Diarrhea metoprolol AdvReac Nausea & Verified 01/18/20 10:20 Vomiting Tetracyclines AdvReac "RUINED Verified 01/18/20 10:20 TEETH" Review of Systems ROS Statement: Those systems with pertinent positive or pertinent negative responses have been documented in the HPI. ROS Other: All systems not noted in ROS Statement are negative. Past Medical History Past Medical History: Coronary Artery Disease (CAD), GERD/Reflux, Myocardial Infarction ([place]) Additional Past Medical History / Comment(s): Hyperlipidemia, Hypotension, constipation Last Myocardial Infarction Date:: 03/25/18 History of Any Multi-Drug Resistant Organisms: None Reported Past Surgical History: Heart Catheterization With Stent, Hysterectomy, Tonsillectomy Past Anesthesia/Blood Transfusion Reactions: No Reported Reaction Date of Last Stent Placement:: 03/25/18 Past Psychological History: Anxiety, Depression, Panic Disorder, PTSD Smoking Status: Current every day smoker Past Alcohol Use History: None Reported Past Drug Use History: None Reported - Past Family History Mother Family Medical History: Coronary Artery Disease (CAD) Father Family Medical History: Coronary Artery Disease (CAD) General Exam - General Exam Comments Initial Comments: 41-year-old female. Alert and oriented. Patient appears in no significant distress. Limitations: no limitations General appearance: alert, in no apparent distress Head exam: Present: atraumatic, normocephalic, normal inspection Eye exam: Present: normal appearance, PERRL, EOMI. Absent: scleral icterus, conjunctival injection, periorbital swelling ENT exam: Present: normal exam Neck exam: Present: normal inspection. Absent: tenderness, meningismus, lymphadenopathy Respiratory exam: Present: normal lung sounds bilaterally. Absent: respiratory distress, wheezes, rales, rhonchi, stridor Cardiovascular Exam: Present: regular rate, normal rhythm, normal heart sounds. Absent: systolic murmur, diastolic murmur, rubs, gallop, clicks GI/Abdominal exam: Present: soft, tenderness (Tenderness in left lower quadrant.), normal bowel sounds. Absent: distended, guarding, rebound, rigid Extremities exam: Present: normal inspection Back exam: Present: normal inspection Neurological exam: Present: alert, oriented X3, CN II-XII intact Psychiatric exam: Present: normal affect, normal mood Skin exam: Present: warm, dry, intact, normal color. Absent: rash Course Vital Signs 01/18/20 01/18/20 10:18 12:18 Temperature 97.8 F Pulse Rate 83 69 Respiratory 18 18 Rate Blood Pressure 133/90 120/84 O2 Sat by Pulse 97 100 Oximetry EKG Findings - EKG Comments: EKG Findings:: EKG shows normal sinus rhythm nonspecific ST 190. Abnormal EKG. Ventricular rate of 77 bpm. Was on 68 ms. Respiration is 96 most seconds. QT QTC 392/443 ms. Medical Decision Making - Medical Decision Making This patient's A. fib [id number] female presents emergency room today with worsening constipation symptoms over the past year. She states she's not had a bowel movement over the past month and to take this out. Patient does have some left-sided abdominal tenderness. CT was completed. Evidence of nondistended bowel. Possible colitis or lack of distention. Blood work was otherwise unremarkable. Her occult test is negative. Rectal tone was normal. No masses felt rectum. Patient was given milk and molasses enema and did have a bowel movement. Patient was informed of these results. Discussed she needs to see a GI doctor. We'll start the Patient on Reglan instead of Zofran for nausea and hopefully will increase gastromotility. I discussed return parameters and PCP follow-up. - Lab Data Result diagrams: 01/18/20 10:45 01/18/20 10:45 Lab Results 01/18/20 01/18/20 01/18/20 Range/Units 10:45 10:45 10:45 WBC 10.9 H (3.8-10.6) k/uL RBC 5.00 (3.80-5.40) m/uL Hgb 15.4 (11.4-16.0) gm/dL Hct 45.2 (34.0-46.0) % MCV 90.4 (80.0-100.0) fL MCH 30.8 (25.0-35.0) pg MCHC 34.1 (31.0-37.0) g/dL RDW 13.1 (11.5-15.5) % Plt Count 387 (150-450) k/uL Neutrophils % 56 % Lymphocytes % 37 % Monocytes % 5 % Eosinophils % 2 % Basophils % 0 % Neutrophils # 6.1 (1.3-7.7) k/uL Lymphocytes # 4.0 (1.0-4.8) k/uL Monocytes # 0.5 (0-1.0) k/uL Eosinophils # 0.2 (0-0.7) k/uL Basophils # 0.0 (0-0.2) k/uL PT 9.8 (9.0-12.0) sec INR 0.9 (<1.2) APTT 24.9 (22.0-30.0) sec Sodium 140 (137-145) mmol/L Potassium 3.7 (3.5-5.1) mmol/L Chloride 109 H (98-107) mmol/L Carbon Dioxide 24 (22-30) mmol/L Anion Gap 7 mmol/L BUN 5 L (7-17) mg/dL Creatinine 0.81 (0.52-1.04) mg/dL Est GFR (CKD-EPI)AfAm >90 (>60 ml/min/1.73 sqM) Est GFR (CKD-EPI)NonAf 87 (>60 ml/min/1.73 sqM) Glucose 91 (74-99) mg/dL Calcium 9.8 (8.4-10.2) mg/dL Total Bilirubin 0.5 (0.2-1.3) mg/dL AST 20 (14-36) U/L ALT 13 (4-34) U/L Alkaline Phosphatase 81 (38-126) U/L Troponin I (0.000-0.034) ng/mL Total Protein 6.2 L (6.3-8.2) g/dL Albumin 3.8 (3.5-5.0) g/dL Amylase 42 (30-110) U/L Lipase 65 (23-300) U/L Urine Color Urine Appearance (Clear) Urine pH (5.0-8.0) Ur Specific [place] (1.001-1.035) Urine Protein (Negative) Urine Glucose (UA) (Negative) Urine Ketones (Negative) Urine Blood (Negative) Urine Nitrite (Negative) Urine Bilirubin (Negative) Urine Urobilinogen (<2.0) mg/dL Ur Leukocyte Esterase (Negative) Stool Occult Blood (Negative) 01/18/20 01/18/20 01/18/20 Range/Units 10:45 12:00 12:45 WBC (3.8-10.6) k/uL RBC (3.80-5.40) m/uL Hgb (11.4-16.0) gm/dL Hct (34.0-46.0) % MCV (80.0-100.0) fL MCH (25.0-35.0) pg MCHC (31.0-37.0) g/dL RDW (11.5-15.5) % Plt Count (150-450) k/uL Neutrophils % % Lymphocytes % % Monocytes % % Eosinophils % % Basophils % % Neutrophils # (1.3-7.7) k/uL Lymphocytes # (1.0-4.8) k/uL Monocytes # (0-1.0) k/uL Eosinophils # (0-0.7) k/uL Basophils # (0-0.2) k/uL PT (9.0-12.0) sec INR (<1.2) APTT (22.0-30.0) sec Sodium (137-145) mmol/L Potassium (3.5-5.1) mmol/L Chloride (98-107) mmol/L Carbon Dioxide (22-30) mmol/L Anion Gap mmol/L BUN (7-17) mg/dL Creatinine (0.52-1.04) mg/dL Est GFR (CKD-EPI)AfAm (>60 ml/min/1.73 sqM) Est GFR (CKD-EPI)NonAf (>60 ml/min/1.73 sqM) Glucose (74-99) mg/dL Calcium (8.4-10.2) mg/dL Total Bilirubin (0.2-1.3) mg/dL AST (14-36) U/L ALT (4-34) U/L Alkaline Phosphatase (38-126) U/L Troponin I <0.012 (0.000-0.034) ng/mL Total Protein (6.3-8.2) g/dL Albumin (3.5-5.0) g/dL Amylase (30-110) U/L Lipase (23-300) U/L Urine Color Light Yellow Urine Appearance Clear (Clear) Urine pH 7.5 (5.0-8.0) Ur Specific [place] >1.050 H (1.001-1.035) Urine Protein Negative (Negative) Urine Glucose (UA) Negative (Negative) Urine Ketones Negative (Negative) Urine Blood Negative (Negative) Urine Nitrite Negative (Negative) Urine Bilirubin Negative (Negative) Urine Urobilinogen <2.0 (<2.0) mg/dL Ur Leukocyte Esterase Negative (Negative) Stool Occult Blood Negative (Negative) - Radiology Data Radiology results: report reviewed CT shows no bowel obstruction. Cannot exclude mild multifocal uncomplicated acu te colitis versus a product of poor distention. Differential includes infectious and inflammatory etiologies. Disposition Clinical Impression: Nausea, Chronic constipation Disposition: HOME SELF-CARE Condition: Good Instructions (If sedation given, give patient instructions): Constipation (ED) Additional Instructions: Please use medication as discussed. Increase fluid intake. Please follow up with family doctor if symptoms have not improved over the next two days. Please return to the emergency room if your symptoms increase or worsen or for any other concerns. Prescriptions: Metoclopramide [Reglan] 10 mg PO ACHS #20 tab Is patient prescribed a controlled substance at d/c from ED?: No Referrals: Melvi Mace MD [Primary Care Provider] - 1-2 days Lucie Butt MD [STAFF PHYSICIAN] - 1-2 days Time of Disposition: 14:07
[2020-01-18 10:59] LABS: Basophils % (A) 0 %; Eosinophils # (A) 0.2 k/uL (0-0.7); Eosinophils % (A) 2 %; HCT 45.2 % (34.0-46.0); HGB 15.4 gm/dL (11.4-16.0); Lymphocytes % (A) 37 %; MCH 30.8 pg (25.0-35.0); MCHC 34.1 g/dL (31.0-37.0); MCV 90.4 fL (80.0-100.0); Monocytes # (A) 0.5 k/uL (0-1.0); Monocytes % (A) 5 %; Neutrophils # (A) 6.1 k/uL (1.3-7.7); Neutrophils % (A) 56 %; Platelet Count 387 k/uL (150-450); RDW 13.1 % (11.5-15.5); WBC 10.9 k/uL (3.8-10.6)
[2020-01-18 11:12] LABS: ALT 13 U/L (4-34); AST 20 U/L (14-36); African American GFR (CKD) >90 (>60 ml/min/1.73 sqM); Albumin 3.8 g/dL (3.5-5.0); Alkaline Phosphatase 81 U/L (38-126); Amylase 42 U/L (30-110); Anion Gap 7 mmol/L; Blood Urea Nitrogen 5 mg/dL (7-17); Calcium 9.8 mg/dL (8.4-10.2); Carbon Dioxide 24 mmol/L (22-30); Chloride 109 mmol/L (98-107); Glucose 91 mg/dL (74-99); Non-African American GFR(CKD) 87 (>60 ml/min/1.73 sqM); Potassium 3.7 mmol/L (3.5-5.1); Sodium 140 mmol/L (137-145); Total Bilirubin 0.5 mg/dL (0.2-1.3); Total Protein 6.2 g/dL (6.3-8.2)
[2020-01-18 11:15] LABS: INR 0.9 (<1.2); Partial Thromboplastin Time 24.9 sec (22.0-30.0); Prothrombin Time 9.8 sec (9.0-12.0)
--- NOTE | 2020-01-18 11:30 | CT ---
EXAMINATION TYPE: CT abdomen pelvis w con DATE OF EXAM: 01/18/2020 HISTORY: generalized pain, constipation, nausea, vomiting CT DLP: 1535.8mGycm Automated Exposure Control for Dose Reduction was Utilized. CONTRAST: CT scan of the abdomen and pelvis is performed without oral but with IV Contrast, patient injected wi th 100 mL of Isovue 300. COMPARISON: None. FINDINGS: LUNG BASES: Posterior bibasilar linear scarring and/or atelectasis. LIVER/GB: No significant abnormality is appreciated. PANCREAS: No significant abnormality is seen. SPLEEN: No significant abnormality is seen. ADRENALS: No significant abnormality is seen. KIDNEYS: No significant abnormality is seen. BOWEL: Small bowel feces sign terminal ileum. No suspicious small or large bowel dilatation. Findings consistent with delayed passage of ingested material to colonic level. Stomach poorly distended and suboptimally evaluated. Fecal material in nondistended colon. Mild wall thickening of the right and t ransverse colon. Mild wall thickening in the proximal to mid sigmoid colon. Normal-appearing appendix from cecum in the right pelvis inferiorly. UTERUS/ADNEXA: Uterus is surgically absent or markedly atrophic with prominent remnant lower uterine segment or cervix noted axial image 77. Correlate clinically. Both ovaries normal in size image 72. T here is 2.3 cm low dense lesion right ovary axial image 72. Scattered pelvic phleboliths. LYMPH NODES: No greater than 1cm abdominal or pelvic lymph nodes are appreciated. OSSEOUS STRUCTURES: No significant abnormality is seen. OTHER: No additional significant abnormality. IMPRESSION: No bowel obstruction. Cannot exclude mild multifocal uncomplicated acute colitis versus p roduct of poor distention. Differential includes infectious and inflammatory etiologies.
[2020-01-18 12:20] LABS: Appearance,Urine Clear (Clear); Bilirubin,Urine Negative (Negative); Blood,Urine Negative (Negative); Color,Urine Light Yellow; Glucose,Urine (UA) Negative (Negative); Ketones,Urine Negative (Negative); Leukocyte Esterase,Urine Negative (Negative); Nitrite,Urine Negative (Negative); PH, Urine 7.5 (5.0-8.0); Protein,Urine Negative (Negative); Urobilinogen,Urine <2.0 mg/dL (<2.0)
[2020-01-18 12:47] LABS: Specific Gravity,Urine >1.050 (1.001-1.035)
[2020-01-18 14:34] VITALS: BP 118/82; PULSE 67; TEMP 97.9
== END 2020-01-18 14:34 | disposition home or self-care (01) ==
LOC: EC 10:15
DX: K59.09 Other constipation (principal); I25.10 Atherosclerotic heart disease of native coronary artery without angina pectoris; K21.9 Gastro-esophageal reflux disease without esophagitis; I25.2 Old myocardial infarction; I10 Essential (primary) hypertension; F32.9 Major depressive disorder, single episode, unspecified; F41.0 Panic disorder [episodic paroxysmal anxiety]; F17.200 Nicotine dependence, unspecified, uncomplicated; Z79.82 Long term (current) use of aspirin; Z79.899 Other long term (current) drug therapy; Z88.0 Allergy status to penicillin; Z88.1 Allergy status to other antibiotic agents; Z88.8 Allergy status to other drugs, medicaments and biological substances; Z95.5 Presence of coronary angioplasty implant and graft
CPT/HCPCS: 36415; 93005; 80053; 82150; 83690; 84484; 85025; 85610; 85730; 82272; 81003; 74177; 99285; 96374; 96375; 96361 ×4; J2060; J2405; Q9967

== ENCOUNTER → 2020-04-21 | Outpatient (CLI) | payer OTHER ==
[2020-04-21 16:21] LABS: Anion Gap 5.7 mmol/L (4.00-12.00); BUN/Creat Ratio 7.5 Ratio (12.00-20.00); Carbon Dioxide 28.3 mmol/L (21.6-31.8); Magnesium 1.7 mg/dL (1.5-2.4); Non-African American GFR(CKD) 87.2 (60.0-200.0); Potassium 3.8 mmol/L (3.5-5.5)
== END | disposition home or self-care (01) ==
LOC: LABWHC1 10:27
PROVIDERS: ATTEND Nurse Practitioner Adult Health
DX: R00.2 Palpitations (principal); I10 Essential (primary) hypertension
CPT/HCPCS: 36415; 80048; 83735; 84443; 84481

== ENCOUNTER 2020-11-27 09:35 | Day surgery (SDC) | payer OTHER ==
[2020-11-21 13:37] VITALS: BMI 34.0
[~2020-11-27 09:35] MED LIST changes: +ALPRAZolam 0.25 MG TAB PO PRN; +ALPRAZolam 0.5 MG TAB PO PRN; +ASPIRIN 325 MG TAB PO STA; +HEPARIN SODIUM,PORCINE 10,000 UNIT in SODIUM CHLORIDE 0.9% 1,000 ML IRRIGATION PRN; +HEPARIN SODIUM,PORCINE 2,500 UNIT in SODIUM CHLORIDE 0.9% 250 ML IRRIGATION PRN; +NITROGLYCERIN SL TABS 0.4 MG TAB SUBLINGUAL PRN; -SODIUM CHLORIDE 0.9% (PF) 10 ML VIAL ONE; +SODIUM CHLORIDE 0.9% 1,000 ML in EMPTY BAG 1 BAG IV ONE; -niCARdipine 25 MG/10 ML VIAL ONE
[2020-11-27 09:58] VITALS: TEMP 97.6
[2020-11-27] MEDS ORDERED: IV FLUID CONTINUATION 1,000 ML IV ONE (10:33)
[2020-11-27] MEDS: MIDAZOLAM 2 MG/2 ML VIAL IVP ONE ×2 (10:39→10:42)
[2020-11-27] MEDS: fentaNYL (PF) 50 MCG/ML 2 ML AMP IVP ONE ×2 (10:39→10:46)
[2020-11-27] MEDS ORDERED: LIDOCAINE 1% INJ 10MG/ML (20 ML MDV) SQ ONE (10:40)
[2020-11-27] MEDS: VERAPAMIL SYRINGE (5 MG/10 ML) INTRAARTER ONE ×2 (10:41→10:52)
[2020-11-27] MEDS ORDERED: HEPARIN SODIUM 1,000 UN/ML (10ML VL) IV ONE (10:52)
[2020-11-27] MEDS ORDERED: IOPAMIDOL-370 125ML BTL INJ ONE (10:53)
[2020-11-27] MEDS ORDERED: RX INFO: IV CONTRAST WAS GIVEN 1 EACH MISC MISCELLANE PRN (11:14)
[2020-11-27] MEDS ORDERED: SODIUM CHLORIDE 0.9% 1,000 ML IV SCH (11:15)
[2020-11-27 14:23] VITALS: BP 142/79; PULSE 70; RESP 18
--- NOTE | 2020-11-27 14:44 | CC ---
CARDIAC CATHETERIZATION REPORT DATE OF THE STUDY: November 27, 2020. PERFORMING PHYSICIAN: Osbaldo Nicholas MD. PROCEDURE PERFORMED: 1. Selective right and left coronary angiogram. 2. Left heart catheterization. INDICATION: This is a 50-year-old female patient with coronary artery disease and prior stenting of the RCA in the setting of acute coronary syndrome, who was experiencing symptoms of chest discomfort and she underwent myocardial perfusion imaging stress test and that revealed an anterior ischemia. Because of that, a heart catheterization was advised. APPROACH: Right radial artery. COMPLICATION: None. LEVEL OF SEDATION: Moderate with sedation length of 15 minutes. PROCEDURE DESCRIPTION: After obtaining an informed consent, the patient was brought to the cardiac production laborer. The right radial artery was cannulated using micropuncture technique, the micropuncture wire passed easily then after that I placed a 5-Iraqi sheath at the right radial artery. I did give the patient 2 mg of verapamil IA and 5000 units of heparin IV. Selective right and left coronary angiogram performed using JR4 and JL3.5 catheters. Left heart catheterization was performed using the 5-Iraqi JR4 which crossed the aortic valve then I did pullback across the valve. The procedure was completed without any complication. SELECTIVE CORONARY ANGIOGRAM: 1. The right coronary artery is a large caliber vessel. It is dominant vessel. The RCA is stented in the midportion and the stent is patent. The RCA proximally is angiographically normal and distally is angiographically normal and bifurcates into PDA and PLV branches, both appeared to be angiographically normal. 2. The left main is angiographically normal. It bifurcates into LCX and LAD. 3. The LCX is a large caliber vessel. It is a nondominant vessel. The left circumflex is angiographically normal. It gives rise into the first and second obtuse marginal branches, both appeared to be angiographically normal. 4. LAD: It is a large caliber vessel. The LAD is angiographically normal. It gives rise in the proximal portion into a large diagonal branch which seems to be normal. HEMODYNAMICS: The LVEDP was about 10 to 12 mmHg without significant gradient across the aortic valve. CONCLUSION: 1. Normal coronary angiogram. 2. Patent stent in the mid right coronary artery. 3. Normal LVEDP. POSTPROCEDURE MANAGEMENT: 1. Medical treatment. 2. Follow up with the patient. MMODL / IJN: [id number] /
--- NOTE | 2020-11-27 14:49 | LTR ---
November 27, 2020. Re: Elviejess Mina Dear Dr. Hood: Ms. Elvie Mina underwent today a heart catheterization and that revealed patent stent in the right coronary artery. I want to thank you for allowing me to participate in her care and please do not hesitate to call if you have any question or concern. Sincerely, Osbaldo Nicholas MD MMMATI / NADYAN: [id number] /
== END 2020-11-27 15:57 | disposition home or self-care (01) ==
LOC: CATHCVL 09:35
PROVIDERS: ATTEND Internal Medicine Interventional Cardiology
DX: R94.39 Abnormal result of other cardiovascular function study (principal); R07.89 Other chest pain; R68.84 Jaw pain; I25.110 Atherosclerotic heart disease of native coronary artery with unstable angina pectoris; I10 Essential (primary) hypertension; E78.00 Pure hypercholesterolemia, unspecified; E78.5 Hyperlipidemia, unspecified; F17.200 Nicotine dependence, unspecified, uncomplicated; I73.9 Peripheral vascular disease, unspecified; I25.2 Old myocardial infarction; Z95.5 Presence of coronary angioplasty implant and graft; Z77.22 Contact with and (suspected) exposure to environmental tobacco smoke (acute) (chronic); Z88.8 Allergy status to other drugs, medicaments and biological substances; Z79.899 Other long term (current) drug therapy; Z82.49 Family history of ischemic heart disease and other diseases of the circulatory system; Z79.82 Long term (current) use of aspirin; Z88.0 Allergy status to penicillin; Z88.1 Allergy status to other antibiotic agents
CPT/HCPCS: 93458; C1769 ×2; C1894; J2250; J2001; J3010; J1644; Q9967

== ENCOUNTER 2020-12-01 17:29 | Inpatient (IN) | payer OTHER ==
[2020-12-01] MEDS ORDERED: MORPHINE SULFATE 4 MG/ML SYRINGE IVP STA (18:06)
[2020-12-01] MEDS ORDERED: ONDANSETRON 4 MG/2 ML VIAL IVP STA (18:36)
[2020-12-01 18:47] LABS: INR 0.9 (<1.2); Partial Thromboplastin Time 24.1 sec (22.0-30.0)
[2020-12-01 18:49] LABS: Basophils % (A) 0 %; Eosinophils # (A) 0.2 k/uL (0-0.7); Eosinophils % (A) 2 %; HCT 43.9 % (34.0-46.0); HGB 14.4 gm/dL (11.4-16.0); Lymphocytes # (A) 3.5 k/uL (1.0-4.8); Lymphocytes % (A) 38 %; MCH 29.4 pg (25.0-35.0); MCHC 32.8 g/dL (31.0-37.0); MCV 89.6 fL (80.0-100.0); Mean Platelet Volume 6.6; Monocytes # (A) 0.3 k/uL (0-1.0); Monocytes % (A) 3 %; Neutrophils % (A) 55 %; Platelet Count 352 k/uL (150-450); RBC 4.89 m/uL (3.80-5.40); RDW 14.4 % (11.5-15.5); WBC 9.2 k/uL (3.8-10.6)
[2020-12-01 18:55] LABS: Albumin 3.4 g/dL (3.5-5.0); Potassium 3.6 mmol/L (3.5-5.1); Total Bilirubin 0.4 mg/dL (0.2-1.3); Total Protein 5.8 g/dL (6.3-8.2)
--- NOTE | 2020-12-01 19:18 | ED ---
General Adult HPI - General Chief complaint: Skin/Abscess/Foreign Body Stated complaint: Post heart cath issues Time Seen by Provider: 12/01/20 17:52 Source: patient Mode of arrival: ambulatory Limitations: no limitations - History of Present Illness Initial comments: Patient is a 50-year-old female who presents to the emergency department with reported throbbing sensation to her right arm. Patient states her symptoms developed after she had a heart cath on Friday by Dr. Lassiter. Reports that her cath was negative and it did not require any intervention. She did not have any issues on the day of her calf. Reports that she woke up on Friday with a numbing, painful sensation which started up in the right shoulder and radiates down to her fingertips. States that her whole arm will become dusky and purple. Denies any provocative factors. States the pain has been so severe that her significant other has to help her get dressed. She has not taken any medications for the symptoms. Denies fevers or chills. No nausea or vomiting. Denies any chest pain or shortness of breath. Denies palpable mass, drainage or opening of the incision. 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 - Related Data Home Medications Medication Instructions Recorded Confirmed Omeprazole 20 mg PO DAILY 03/25/18 12/01/20 ALPRAZolam [Xanax] 1 mg PO TID PRN 02/11/19 12/01/20 Aspirin EC [Ecotrin Low Dose] 81 mg PO 02/11/19 12/01/20 Ondansetron [Zofran] 4 mg PO DAILY PRN 11/20/20 12/01/20 Rosuvastatin Calcium [Crestor] 20 mg PO HS 11/20/20 12/01/20 hydrOXYzine pamoate [hydrOXYzine 25 mg PO TID PRN 11/20/20 12/01/20 PAMOATE] Ubidecarenone [Co Q-10] 100 mg PO HS 11/21/20 12/01/20 Cholecalciferol [Vitamin D3 (25 25 mcg PO HS 12/01/20 12/01/20 Mcg = 1000 Iu)] Nitroglycerin Sl Tabs [Nitrostat] 0.4 mg SUBLINGUAL Q5M PRN 12/01/20 12/01/20 Prazosin HCl 1 mg PO HS 12/01/20 12/01/20 Allergies Allergy/AdvReac Type Severity Reaction Status Date / Time dopamine Allergy "WAS TOLD Verified 12/01/20 18:48 BY HOPITAL NOT TO TAKE AGAIN " Penicillins Allergy Dyspnea Verified 12/01/20 18:48 ciprofloxacin [From Cipro] AdvReac Nausea & Verified 12/01/20 18:48 Vomiting & Diarrhea metoprolol AdvReac Nausea & Verified 12/01/20 18:48 Vomiting Tetracyclines AdvReac "RUINED Verified 12/01/20 18:48 TEETH" Review of Systems ROS Statement: Those systems with pertinent positive or pertinent negative responses have been documented in the HPI. ROS Other: All systems not noted in ROS Statement are negative. Past Medical History Past Medical History: Coronary Artery Disease (CAD), GERD/Reflux, Myocardial Infarction ([place]) Additional Past Medical History / Comment(s): Hyperlipidemia, Hypotension, constipation Last Myocardial Infarction Date:: 03/25/18 History of Any Multi-Drug Resistant Organisms: None Reported Past Surgical History: Heart Catheterization With Stent, Hysterectomy, Tonsillectomy Past Anesthesia/Blood Transfusion Reactions: No Reported Reaction Date of Last Stent Placement:: 03/25/18 Past Psychological History: Anxiety, Depression, Panic Disorder, PTSD Smoking Status: Never smoker Past Alcohol Use History: None Reported Past Drug Use History: None Reported - Past Family History Mother Family Medical History: Coronary Artery Disease (CAD) Father Family Medical History: Coronary Artery Disease (CAD) General Exam Limitations: no limitations Course Vital Signs 12/01/20 12/01/20 12/01/20 17:42 20:38 20:59 Temperature 98.5 F 97.6 F Pulse Rate 88 69 Pulse Rate [ 92 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 Resendez. Agreed to admission on heparin gtt at dvt/pe dosing. Will be on consult for patient. Agreed to vascular consult Medical Decision Making - Medical Decision Making Upon arrival the patient is placed into room 1. A thorough history and physical exam is performed. I did evaluate the incision. There is some swelling however I am able to find a Doppler pulse. Incision is closed with no bleeding. Patient does have palpable brachial pulse. Cap refill less than 3 seconds. No signs of compartment syndrome. I did speak with ultrasound who states that the best study would be a CT angiography. Laboratory studies were conducted and patient was sent over for a CT of her right arm which does demonstrate absence of contrast below the radial tubercle which suggests radial artery thrombosis. I did speak with Dr. Resendez in regards to the results. Does recommend heparinization for DVT/PE dosing. Patient will be admitted to the hospital with vascular cardiology consult. Spoke with the patient regards this he did agree to the treatment plan. She remained in stable condition and was transported to the floor - Lab Data Result diagrams: 12/01/20 18:30 12/01/20 18:30 Lab Results 12/01/20 12/01/20 12/01/20 Range/Units 18:30 18:30 18:30 WBC 9.2 (3.8-10.6) k/uL RBC 4.89 (3.80-5.40) m/uL Hgb 14.4 (11.4-16.0) gm/dL Hct 43.9 (34.0-46.0) % MCV 89.6 (80.0-100.0) fL MCH 29.4 (25.0-35.0) pg MCHC 32.8 (31.0-37.0) g/dL RDW 14.4 (11.5-15.5) % Plt Count 352 (150-450) k/uL MPV 6.6 Neutrophils % 55 % Lymphocytes % 38 % Monocytes % 3 % Eosinophils % 2 % Basophils % 0 % Neutrophils # 5.0 (1.3-7.7) k/uL Lymphocytes # 3.5 (1.0-4.8) k/uL Monocytes # 0.3 (0-1.0) k/uL Eosinophils # 0.2 (0-0.7) k/uL Basophils # 0.0 (0-0.2) k/uL PT 10.0 (9.0-12.0) sec INR 0.9 (<1.2) APTT 24.1 (22.0-30.0) sec Sodium 139 (137-145) mmol/L Potassium 3.6 (3.5-5.1) mmol/L Chloride 108 H (98-107) mmol/L Carbon Dioxide 30 (22-30) mmol/L Anion Gap 1 mmol/L BUN 6 L (7-17) mg/dL Creatinine 1.12 H (0.52-1.04) mg/dL Est GFR (CKD-EPI)AfAm 67 (>60 ml/min/1.73 sqM) Est GFR (CKD-EPI)NonAf 58 (>60 ml/min/1.73 sqM) Glucose 88 (74-99) mg/dL Plasma Lactic Acid Negrito (0.7-2.0) mmol/L Calcium 9.0 (8.4-10.2) mg/dL Total Bilirubin 0.4 (0.2-1.3) mg/dL AST 32 (14-36) U/L ALT 31 (4-34) U/L Alkaline Phosphatase 80 (38-126) U/L Total Protein 5.8 L (6.3-8.2) g/dL Albumin 3.4 L (3.5-5.0) g/dL 12/01/20 Range/Units 18:30 WBC (3.8-10.6) k/uL RBC (3.80-5.40) m/uL Hgb (11.4-16.0) gm/dL Hct (34.0-46.0) % MCV (80.0-100.0) fL MCH (25.0-35.0) pg MCHC (31.0-37.0) g/dL RDW (11.5-15.5) % Plt Count (150-450) k/uL MPV Neutrophils % % Lymphocytes % % Monocytes % % Eosinophils % % Basophils % % Neutrophils # (1.3-7.7) k/uL Lymphocytes # (1.0-4.8) k/uL Monocytes # (0-1.0) k/uL Eosinophils # (0-0.7) k/uL Basophils # (0-0.2) k/uL PT (9.0-12.0) sec INR (<1.2) APTT (22.0-30.0) sec Sodium (137-145) mmol/L Potassium (3.5-5.1) mmol/L Chloride (98-107) mmol/L Carbon Dioxide (22-30) mmol/L Anion Gap mmol/L BUN (7-17) mg/dL Creatinine (0.52-1.04) mg/dL Est GFR (CKD-EPI)AfAm (>60 ml/min/1.73 sqM) Est GFR (CKD-EPI)NonAf (>60 ml/min/1.73 sqM) Glucose (74-99) mg/dL Plasma Lactic Acid Negrito 1.0 (0.7-2.0) mmol/L Calcium (8.4-10.2) mg/dL Total Bilirubin (0.2-1.3) mg/dL AST (14-36) U/L ALT (4-34) U/L Alkaline Phosphatase (38-126) U/L Total Protein (6.3-8.2) g/dL Albumin (3.5-5.0) g/dL Disposition Clinical Impression: Right arm pain, S/P cardiac cath, Arterial occlusion due to thromboembolism Disposition: ADMITTED IP TO THIS [facility] Condition: Stable Is patient prescribed a controlled substance at d/c from ED?: No Decision to Admit Reason: Admit from EC Decision Date: 12/01/20 Decision Time: 20:19
--- NOTE | 2020-12-01 19:53 | CT ---
EXAMINATION TYPE: CT angio upper extremity RT DATE OF EXAM: 12/01/2020 COMPARISON: HISTORY: Right arm pain and numbness post heart cath on 11/28/20. CT DLP: 1121 mGycm Automated exposure control for dose reduction was used. CONTRAST: Performed with IV Contrast, patient injected with 100ml mL of Isovue 370. Images were obtained from the level of the aortic arch to the fingers of the right hand with IV contr ast and 3-D post processed images. There is normal branching pattern of the great vessels on the aortic arch. There is bilateral arteria l flow in the subclavian arteries right subclavian artery appears widely patent. There is arterial fl ow in the axillary and brachial artery. Brachial artery is widely patent. There is arterial flow in t he ulnar artery. I see no significant contrast opacification of the radial artery there is flow in th e proximal radial artery at the level of the radial tubercle. There is absence of contrast in the rad ial artery below the radial tubercle. No aneurysm or dissection identified. Limited visualization of the thoracic and abdominal aorta show normal size aorta without evidence of aneurysm or dissection. There is no evidence of pulmonary embolism. There is arterial flow in the dre iac artery and superior mesenteric artery is arterial flow in both renal arteries is bilateral arteri al flow in the iliac arteries. There is no evidence of arterial aneurysm or dissection. IMPRESSION: There is absence of contrast in the radial artery below the radial tubercle that suggests thrombosis. There is patency of the brachial and ulnar arteries. There is arterial flow in the ulnar artery to t he palmar arch.
[2020-12-01] MEDS ORDERED: HEPARIN SODIUM,PORCINE 10,000 UNIT/ML 1 ML VIAL IV ONE (20:16)
[2020-12-01] MEDS ORDERED: HEPARIN SODIUM,PORCINE 5,000 UNIT/ML 1 ML VIAL IV PRN (20:16)
[2020-12-01] MEDS ORDERED: NALOXONE 0.4 MG/ML 1 ML VIAL IV PRN (20:20)
[2020-12-01] MEDS ORDERED: HEPARIN SOD,PORK IN 0.45% NACL 25,000 UNIT in 0.45% NACL 1 250ML.BAG IV SCH (20:30)
[2020-12-01] MEDS ORDERED: hydrOXYzine pamoate 25 MG CAP PO PRN (20:42)
[2020-12-01] MEDS: ALPRAZolam 1 MG TAB PO PRN (20:58)
[2020-12-01] MEDS ORDERED: ATORVASTATIN 40 MG TAB PO SCH (21:00)
[2020-12-01] MEDS ORDERED: ASPIRIN 81 MG PO SCH (21:00)
[2020-12-01] MEDS ORDERED: PRAZOSIN 1 MG CAP PO SCH (21:00)
[2020-12-01] MEDS ORDERED: NON FORMULARY DRUG (Ubidecarenone [Co Q-10] 100 MG Capsule) PO SCH (21:00)
[2020-12-01] MEDS ORDERED: CHOLECALCIFEROL 25 MCG (1000 IU) TABLET PO SCH (21:00)
[2020-12-02 05:52] LABS: Basophils # (A) 0.1 k/uL (0-0.2); Basophils % (A) 1 %; Eosinophils # (A) 0.1 k/uL (0-0.7); Eosinophils % (A) 2 %; HCT 40.6 % (34.0-46.0); Lymphocytes # (A) 4.2 k/uL (1.0-4.8); Lymphocytes % (A) 46 %; MCH 29.6 pg (25.0-35.0); MCV 92.5 fL (80.0-100.0); Mean Platelet Volume 6.7; Monocytes # (A) 0.3 k/uL (0-1.0); Monocytes % (A) 4 %; Neutrophils # (A) 4.3 k/uL (1.3-7.7); Neutrophils % (A) 47 %; Platelet Count 311 k/uL (150-450); RBC 4.39 m/uL (3.80-5.40); RDW 14.5 % (11.5-15.5); WBC 9.1 k/uL (3.8-10.6)
[2020-12-02 06:00] LABS: Partial Thromboplastin Time 51.4 sec (22.0-30.0); Prothrombin Time 10.5 sec (9.0-12.0)
[2020-12-02 06:55] LABS: African American GFR (CKD) >90 (>60 ml/min/1.73 sqM); Anion Gap 0 mmol/L; Blood Urea Nitrogen 10 mg/dL (7-17); Calcium 8.8 mg/dL (8.4-10.2); Carbon Dioxide 29 mmol/L (22-30); Chloride 108 mmol/L (98-107); Glucose 97 mg/dL (74-99); Non-African American GFR(CKD) 86 (>60 ml/min/1.73 sqM); Potassium 3.7 mmol/L (3.5-5.1); Sodium 137 mmol/L (137-145)
[2020-12-02] MEDS ORDERED: PANTOPRAZOLE 40 MG TABLET PO SCH (07:30)
--- NOTE | 2020-12-02 08:42 | P.CRDCN ---
History of Present Illness Consult date: 12/02/20 Reason for Consult (text): Acute right arm pain, status post cath, arterial occlusion Chief complaint: Throbbing right arm History of present illness: History of present illness: This is a 50-year-old female patient with past medical history of inferior wall UT in March 2018 status post stent of the RCA by Dr. Nicholas. History of hypertension, dyslipidemia intolerant of statins and active tobacco use and dependence. Patient was recently seen in the office with Dr. Nicholas for atypical chest discomfort associated with jaw discomfort. Patient was advised to undergo a stress test which she had a myocardial perfusion imaging stress test that showed partially reversible defect involving the anterior wall of the left ventricle. Patient was advised to undergo heart catheterization and smoking cessation. On November 27, patient was brought into [facility] by Dr. Nicholas and underwent a left heart catheterization using the right radial approach. Patient was found to have a patent stent in the mid RCA and otherwise normal coronary arteries. Patient presented yesterday to the emergency center with throbbing sensation to her right arm. She woke up with this discomfort that was numbing and painful, starting in the right shoulder and radiates down to her fingertips. No fever or chills. No chest pain or shortness of breath. CT angiogram of the right upper extremity revealed absence of contrast in the radial artery below the radial tubercle that suggest thrombosis. There is patency of the brachial and ulnar arteries. There is arterial flow in the ulnar artery to the palmar arch. Patient states that she is feeling a lot better at the time of evaluation. CBC and BMP were unremarkable. Patient was started on a heparin drip and patient has been seen by Dr. Morelos with recommendations for anticoagulation and follow-up in the office in 2 weeks. Review Of Systems: Constitutional: No fever, no chills. No weakness, fatigue or lethargy. EENT: No headache. No dizziness. Lungs: No shortness of breath, cough, no sputum production. No wheezing. Cardiovascular: No chest pain, no lower extremity edema. No palpitations. No paroxysmal nocturnal dyspnea. No orthopnea. No lightheadedness or dizziness. No syncopal episodes. Abdominal: No abdominal pain. No nausea, vomiting. No diarrhea. No constipation. No bloody or tarry stools.. No loss of appetite. Genitourinary: No dysuria.. No urinary retention. Musculoskeletal: No myalgias. No muscle weakness, no gait dysfunction, no frequent falls. No back pain. No neck pain. Right arm pain starting at the shoulder to fingers. Integumentary: No wounds, no lesions. No rash or pruritus. No unusual bruising. Neurologic: No aphasia. No facial droop. No change in mentation. No head injury. No headache. No paralysis. No paresthesia. Psychiatric: No depression. No anxiety. Endocrine: No abnormal blood sugars. Physical examination: Gen: This is a 50-year-old female. Patient is resting in bed and appears comfortable and in no acute distress. VS: Afebrile, heart rate 75, blood pressure 130/91, pulse ox 96% on room air. HEENT: Head is atraumatic, normocephalic. Pupils equal, round. Sclerae is an icteric. NECK: Supple. No JVD. No lymphadenopathy. No thyromegaly. LUNGS: Clear to auscultation. No wheezes or rhonchi. No intercostal retractions. HEART: Regular rate and rhythm. No murmur. ABDOMEN: Soft. Bowel sounds are present. No masses. No tenderness. EXTREMITIES: No pedal edema. No calf tenderness. Right arm, right forearm his increased size compared to left. Mild bruising at the puncture site the radial wrist. Unable to palpate right radial pulse but ulnar pulses strong. NEUROLOGICAL: Patient is awake, alert and oriented x3. Cranial nerves 2 through 12 are grossly intact. Assessment: DVT right radial artery Recent left heart catheterization History of coronary artery disease with previous stent RCA Hypertension Dyslipidemia Plan: Patient is currently on heparin drip which will be discontinued Start eliquis 10 mg oral twice daily for 7 days then 5 mg orally twice daily Patient has follow-up appointment on Friday with Dr. Nicholas Case discussed with Dr. Nicholas, patient cleared for discharge home. Thank you kindly for this consultation. Nurse practitioner note has been reviewed, I agree with documented findings and plan of care. Patient was seen and examined. Past Medical History Past Medical History: Coronary Artery Disease (CAD), GERD/Reflux, Myocardial Infarction ([place]) Additional Past Medical History / Comment(s): Hyperlipidemia, Hypotension, constipation Last Myocardial Infarction Date:: 03/25/18 History of Any Multi-Drug Resistant Organisms: None Reported Past Surgical History: Heart Catheterization With Stent, Hysterectomy, Tonsillectomy Past Anesthesia/Blood Transfusion Reactions: No Reported Reaction Date of Last Stent Placement:: 03/25/18 Past Psychological History: Anxiety, Depression, Panic Disorder, PTSD Smoking Status: Never smoker Past Alcohol Use History: None Reported Past Drug Use History: None Reported - Past Family History Mother Family Medical History: Coronary Artery Disease (CAD) Father Family Medical History: Coronary Artery Disease (CAD) Medications and Allergies Home Medications Medication Instructions Recorded Confirmed Type Omeprazole 20 mg PO DAILY 03/25/18 12/01/20 History ALPRAZolam [Xanax] 1 mg PO TID PRN 02/11/19 12/01/20 History Aspirin EC [Ecotrin Low Dose] 81 mg PO HS 02/11/19 12/01/20 History Ondansetron [Zofran] 4 mg PO DAILY PRN 11/20/20 12/01/20 History Rosuvastatin Calcium [Crestor] 20 mg PO HS 11/20/20 12/01/20 History hydrOXYzine pamoate [hydrOXYzine 25 mg PO TID PRN 11/20/20 12/01/20 History PAMOATE] Ubidecarenone [Co Q-10] 100 mg PO HS 11/21/20 12/01/20 History Cholecalciferol [Vitamin D3 (25 25 mcg PO HS 12/01/20 12/01/20 History Mcg = 1000 Iu)] Nitroglycerin Sl Tabs [Nitrostat] 0.4 mg SUBLINGUAL Q5M PRN 12/01/20 12/01/20 History Prazosin HCl 1 mg PO HS 12/01/20 12/01/20 History Apixaban [Eliquis Starter Pack 0 mg PO DIRECTED 30 Days #1 pack 12/02/20 Rx (for VTE)] Allergies Allergy/AdvReac Type Severity Reaction Status Date / Time dopamine Allergy "WAS TOLD Verified 12/01/20 18:48 BY HOPITAL NOT TO TAKE AGAIN " Penicillins Allergy Dyspnea Verified 12/01/20 18:48 ciprofloxacin [From Cipro] AdvReac Nausea & Verified 12/01/20 18:48 Vomiting & Diarrhea metoprolol AdvReac Nausea & Verified 12/01/20 18:48 Vomiting Tetracyclines AdvReac "RUINED Verified 12/01/20 18:48 TEETH" Physical Exam Vitals: Vital Signs Temp Pulse Pulse Resp BP BP Pulse Ox 12/02/20 07:58 97.8 F 75 16 130/91 96 12/02/20 04:00 97.5 F L 64 16 111/73 95 12/02/20 02:00 67 16 12/02/20 00:00 97.6 F 67 16 186/88 98 12/01/20 21:38 98.5 F 62 18 98 12/01/20 20:59 97.6 F 92 16 146/87 99 12/01/20 20:38 69 18 142/92 98 12/01/20 17:42 98.5 F 88 18 145/100 97 Intake and Output 12/01/20 12/02/20 12/02/20 22:59 06:59 14:59 Intake Total 404.54 Output Total 350 Balance -350 404.54 Intake: Intake, IV Titration 404.54 Amount Heparin Sod,Pork in 0.45% 404.54 NaCl 25,000 unit In 0.45 % NaCl 1 250ml.bag @ 18 UNITS/KG/HR 16.166 mls/hr IV .[id number] [facility] Rx#: [id number] Output: Urine 350 Other: Weight 89.811 kg 99 kg Results 12/02/20 05:32 12/02/20 05:32 Cardiac Enzymes 12/01/20 Range/Units 18:30 AST 32 (14-36) U/L Coagulation 12/01/20 12/02/20 12/02/20 Range/Units 18:30 02:15 05:32 PT 10.0 10.5 (9.0-12.0) sec APTT 24.1 >200.0 H* 51.4 H (22.0-30.0) sec CBC 12/01/20 12/02/20 Range/Units 18:30 05:32 WBC 9.2 9.1 (3.8-10.6) k/uL RBC 4.89 4.39 (3.80-5.40) m/uL Hgb 14.4 13.0 (11.4-16.0) gm/dL Hct 43.9 40.6 (34.0-46.0) % Plt Count 352 311 (150-450) k/uL Comprehensive Metabolic Panel 12/01/20 12/02/20 Range/Units 18:30 05:32 Sodium 139 137 (137-145) mmol/L Potassium 3.6 3.7 (3.5-5.1) mmol/L Chloride 108 H 108 H (98-107) mmol/L Carbon Dioxide 30 29 (22-30) mmol/L BUN 6 L 10 (7-17) mg/dL Creatinine 1.12 H 0.81 (0.52-1.04) mg/dL Glucose 88 97 (74-99) mg/dL Calcium 9.0 8.8 (8.4-10.2) mg/dL AST 32 (14-36) U/L ALT 31 (4-34) U/L Alkaline Phosphatase 80 (38-126) U/L Total Protein 5.8 L (6.3-8.2) g/dL Albumin 3.4 L (3.5-5.0) g/dL Current Medications Generic Name Dose Route Start Last Admin Trade Name Freq PRN Reason Stop Dose Admin Alprazolam 1 mg 12/01/20 20:42 12/01/20 20:58 Alprazolam 1 Mg Tab PO 1 mg TID PRN Administration Anxiety Aspirin 81 mg 12/01/20 21:00 12/01/20 20:51 Aspirin 81 Mg PO Not Given HS ANITA Atorvastatin Calcium 40 mg 12/01/20 21:00 12/01/20 20:57 Atorvastatin 40 Mg Tab PO Not Given HS ANITA Cholecalciferol 25 mcg 12/01/20 21:00 12/01/20 20:58 Cholecalciferol 25 Mcg (1000 Iu) Tablet PO 25 mcg HS ANITA Administration Heparin Sodium (Porcine) 0 unit 12/01/20 20:16 Heparin Sodium,Porcine 5,000 Unit/Ml 1 Ml Vial IV PER PROTOCOL PRN Low PTT Protocol Hydroxyzine Pamoate 25 mg 12/01/20 20:42 Hydroxyzine Pamoate 25 Mg Cap PO TID PRN WITH XANAX NEEDED Heparin Sodium/Sodium Chloride 250 mls @ 16.166 mls/hr 12/01/20 20:30 12/02/20 06:05 25,000 unit/ Sodium Chloride IV 16 units/kg/hr .[id number] ANITA 14.37 mls/hr Titration Protocol 18 UNITS/KG/HR Naloxone HCl 0.2 mg 12/01/20 20:20 Naloxone 0.4 Mg/Ml 1 Ml Vial IV Q2M PRN Opioid Reversal Pantoprazole Sodium 40 mg 12/02/20 07:30 12/02/20 06:26 Pantoprazole 40 Mg Tablet PO 40 mg [id number] ANITA Administration Prazosin HCl 1 mg 12/01/20 21:00 12/01/20 22:33 Prazosin 1 Mg Cap PO 1 mg HS ANITA Administration Intake and Output 12/01/20 12/02/20 12/02/20 22:59 06:59 14:59 Intake Total 404.54 Output Total 350 Balance -350 404.54 Intake: Intake, IV Titration 404.54 Amount Heparin Sod,Pork in 0.45% 404.54 NaCl 25,000 unit In 0.45 % NaCl 1 250ml.bag @ 18 UNITS/KG/HR 16.166 mls/hr IV .[id number] [facility] Rx#: [id number] Output: Urine 350 Other: Weight 89.811 kg 99 kg 12/02/20 05:32 12/02/20 05:32
--- NOTE | 2020-12-02 08:50 | P.GSCN ---
History of Present Illness Consult date: 12/02/20 History of present illness: The patient is a 50-year-old female who underwent a heart catheterization via a right radial approach Friday the , she was having pain and told to go to the hospital. She was seen in our ER and found to have thrombosed right radial artery. The scan was returned at approximately 8 PM. I was notified via a perfect served text close to midnight. At that time I called the nursing staff and discussed with the patient. She was having some pain in her arm but remained motor sensory intact. No color or skin discolorations. She was on a heparin drip. She was made nothing by mouth after midnight with the possibility of going for an open thrombectomy after my evaluation. She was seen and evaluated this morning and states that initially her pain when she had it was more so in her upper arm and that she had some significant bruising and swelling. She denied any pain into her hand or neuromotor changes Review of Systems 14 point review of systems performed, pertinent positives and negatives per the HPI Past Medical History Past Medical History: Coronary Artery Disease (CAD), GERD/Reflux, Myocardial Infarction ([place]) Additional Past Medical History / Comment(s): Hyperlipidemia, Hypotension, constipation Last Myocardial Infarction Date:: 03/25/18 History of Any Multi-Drug Resistant Organisms: None Reported Past Surgical History: Heart Catheterization With Stent, Hysterectomy, Tonsillectomy Past Anesthesia/Blood Transfusion Reactions: No Reported Reaction Date of Last Stent Placement:: 03/25/18 Past Psychological History: Anxiety, Depression, Panic Disorder, PTSD Smoking Status: Never smoker Past Alcohol Use History: None Reported Past Drug Use History: None Reported - Past Family History Mother Family Medical History: Coronary Artery Disease (CAD) Father Family Medical History: Coronary Artery Disease (CAD) Medications and Allergies Home Medications Medication Instructions Recorded Confirmed Type Omeprazole 20 mg PO DAILY 03/25/18 12/01/20 History ALPRAZolam [Xanax] 1 mg PO TID PRN 02/11/19 12/01/20 History Aspirin EC [Ecotrin Low Dose] 81 mg PO HS 02/11/19 12/01/20 History Ondansetron [Zofran] 4 mg PO DAILY PRN 11/20/20 12/01/20 History Rosuvastatin Calcium [Crestor] 20 mg PO HS 11/20/20 12/01/20 History hydrOXYzine pamoate [hydrOXYzine 25 mg PO TID PRN 11/20/20 12/01/20 History PAMOATE] Ubidecarenone [Co Q-10] 100 mg PO HS 11/21/20 12/01/20 History Cholecalciferol [Vitamin D3 (25 25 mcg PO HS 12/01/20 12/01/20 History Mcg = 1000 Iu)] Nitroglycerin Sl Tabs [Nitrostat] 0.4 mg SUBLINGUAL Q5M PRN 12/01/20 12/01/20 History Prazosin HCl 1 mg PO HS 12/01/20 12/01/20 History Apixaban [Eliquis Starter Pack 0 mg PO DIRECTED 30 Days #1 pack 12/02/20 Rx (for VTE)] Allergies Allergy/AdvReac Type Severity Reaction Status Date / Time dopamine Allergy "WAS TOLD Verified 12/01/20 18:48 BY HOPITAL NOT TO TAKE AGAIN " Penicillins Allergy Dyspnea Verified 12/01/20 18:48 ciprofloxacin [From Cipro] AdvReac Nausea & Verified 12/01/20 18:48 Vomiting & Diarrhea metoprolol AdvReac Nausea & Verified 12/01/20 18:48 Vomiting Tetracyclines AdvReac "RUINED Verified 12/01/20 18:48 TEETH" Surgical - Exam Vital Signs Temp Pulse Resp BP Pulse Ox 98.5 F 88 18 145/100 97 12/01/20 17:42 12/01/20 17:42 12/01/20 17:42 12/01/20 17:42 12/01/20 17:42 Gen. is a pleasant cooperative female in no acute distress, slightly anxious. HEENT is normocephalic except emotion intact. Heart is regular in rate and rhythm. Lungs are clear bilaterally. Abdomen is soft, nontender nondistended. She has a left palpable radial pulse. Palpable femoral pulses. Bilateral lower extremity is are warm and dry. The right radial area has some old ecchymosis and mild swelling. There is no palpable radial pulse. She has a multiphasic signal through her ulnar artery and through the palmar arch. There is a monophasic signal of the radial artery. She has normal network director strength and is motor sensory intact bilaterally. Normal mood and affect. Cranial nerves II through XII grossly intact Results Computed tomography scan is reviewed. There appears to be thrombosis of the right radial artery with patent ulnar artery and intact palmar arch - Labs 12/02/20 05:32 12/02/20 05:32 Abnormal Lab Results - Last 24 Hours (Table) 12/01/20 12/02/20 12/02/20 Range/Units 18:30 02:15 05:32 APTT >200.0 H* 51.4 H (22.0-30.0) sec Chloride 108 H (98-107) mmol/L BUN 6 L (7-17) mg/dL Creatinine 1.12 H (0.52-1.04) mg/dL Total Protein 5.8 L (6.3-8.2) g/dL Albumin 3.4 L (3.5-5.0) g/dL 12/02/20 Range/Units 05:32 APTT (22.0-30.0) sec Chloride 108 H (98-107) mmol/L BUN (7-17) mg/dL Creatinine (0.52-1.04) mg/dL Total Protein (6.3-8.2) g/dL Albumin (3.5-5.0) g/dL Diabetes panel 12/01/20 12/02/20 Range/Units 18:30 05:32 Sodium 139 137 (137-145) mmol/L Potassium 3.6 3.7 (3.5-5.1) mmol/L Chloride 108 H 108 H (98-107) mmol/L Carbon Dioxide 30 29 (22-30) mmol/L BUN 6 L 10 (7-17) mg/dL Creatinine 1.12 H 0.81 (0.52-1.04) mg/dL Glucose 88 97 (74-99) mg/dL Calcium 9.0 8.8 (8.4-10.2) mg/dL AST 32 (14-36) U/L ALT 31 (4-34) U/L Alkaline Phosphatase 80 (38-126) U/L Total Protein 5.8 L (6.3-8.2) g/dL Albumin 3.4 L (3.5-5.0) g/dL Calcium panel 12/01/20 12/02/20 Range/Units 18:30 05:32 Calcium 9.0 8.8 (8.4-10.2) mg/dL Albumin 3.4 L (3.5-5.0) g/dL Pituitary panel 12/01/20 12/02/20 Range/Units 18:30 05:32 Sodium 139 137 (137-145) mmol/L Potassium 3.6 3.7 (3.5-5.1) mmol/L Chloride 108 H 108 H (98-107) mmol/L Carbon Dioxide 30 29 (22-30) mmol/L BUN 6 L 10 (7-17) mg/dL Creatinine 1.12 H 0.81 (0.52-1.04) mg/dL Glucose 88 97 (74-99) mg/dL Calcium 9.0 8.8 (8.4-10.2) mg/dL Adrenal panel 12/01/20 12/02/20 Range/Units 18:30 05:32 Sodium 139 137 (137-145) mmol/L Potassium 3.6 3.7 (3.5-5.1) mmol/L Chloride 108 H 108 H (98-107) mmol/L Carbon Dioxide 30 29 (22-30) mmol/L BUN 6 L 10 (7-17) mg/dL Creatinine 1.12 H 0.81 (0.52-1.04) mg/dL Glucose 88 97 (74-99) mg/dL Calcium 9.0 8.8 (8.4-10.2) mg/dL Total Bilirubin 0.4 (0.2-1.3) mg/dL AST 32 (14-36) U/L ALT 31 (4-34) U/L Alkaline Phosphatase 80 (38-126) U/L Total Protein 5.8 L (6.3-8.2) g/dL Albumin 3.4 L (3.5-5.0) g/dL Assessment and Plan Assessment: Right radial artery occlusion Status post heart catheterization Plan: At this time I do not believe the patient has significant consequence of having a right radial artery occlusion. She has intact palmar arch with a widely patent ulnar artery and good flow as well as no clinical deficits. She has been heparinized and will plan to change her over to oral anticoagulation and follow- up with her in the office. All questions were discussed and the patient seemingly understood and was willing to proceed as such. This is also discussed with cardiology.
[2020-12-02] MEDS ORDERED: APIXABAN 5 MG TAB PO SCH (09:00)
[2020-12-02 12:07] VITALS: BP 120/83; PULSE 70; RESP 18; TEMP 98.7
[2020-12-02] MEDS: ALPRAZolam 1 MG TAB PO PRN (13:34)
--- NOTE | 2020-12-03 01:01 | P.HPIM ---
History of Present Illness Please consider this as combined H&P and discharge summary Diagnoses: Right radial artery thrombosis Mild acute kidney injury, resolved History of coronary artery disease status post recent cardiac cath and 11/27 showing normal coronary and patent stent in the mid RCA History of GERD Hyperlipidemia Constipation Hospital course: This is a pleasant 50 years old female with past medical history of coronary artery disease, GERD, hyperlipidemia, constipation. Patient underwent cardiac cath on 11/27 showing normal coronary arteriogram with patent stent in the mid right coronary artery and normal LVEDP at that time manager party Dr. Lassiter recommended medical management. Procedure was done on Friday morning, however on Friday evening she started having some pain and swelling in her right wrist area and which was more by Friday she called her manager party office on Friday the advised her to come to emergency room Presents with painful swelling of right upper extremity on the right wrist area. The patient states that the area was opposed but and examined the patient I didn't notice any problems or discoloration there is only mild swelling and some tenderness in the right wrist area with the puncture site on the ventral surface. vitals are stable. Labs reviewed including CBC, INR, BMP and liver enzymes are unremarkable except for very mildly increased creatinine of 1.12. Upper extremity CTA showing absence of contrast and the radial artery below the radial tubercle that suggests thrombosis there is patency of the bronchial and ulnar arteries. On admission patient was started on home dose aspirin 81 mg and heparin drip Vascular surgery and cardiology team were consulted, they evaluated the patient stopped already started heparin drip and switch her to Eliquis 10 mg twice a day X7 days and then continue 5 mg twice a day, patient was cleared for discharge after that by both Dr. Morelos and Dr. Fuchs from cardiology service Patient has Eliquis delivered at bedside, she could show it to me and told me that instructions how to take it as 10 mg first and then 5 mg. Patient denies any other symptoms and she feels she can go home today She has appointment with Dr. Lassiter on this coming Friday on 12/04 that she intends to follow up with Problems and management plan were discussed with the patient and he verbalized understanding and acceptance Patient was found stable and can be discharged home however he needs follow-up as an outpatient. Patient was instructed to follow up with PCP Dr. Hood within one week and patient agrees CONSTITUTIONAL: No fever, no malaise, no fatigue. HEENT: No recent visual problems or hearing problems. Denied any sore throat. CARDIOVASCULAR: No orthopnea, PND, no palpitations, no syncope. PULMONARY: No shortness of breath, no cough, no hemoptysis. GASTROINTESTINAL: No diarrhea, no nausea, no vomiting, no abdominal pain. Normoactive bowel sounds. NEUROLOGICAL: No headaches, no weakness, no numbness. HEMATOLOGICAL: Denies any bleeding or petechiae. GENITOURINARY: Denies any burning micturition, frequency, or urgency. MUSCULOSKELETAL/RHEUMATOLOGICAL: As above ENDOCRINE: Denies any polyuria or polydipsia. Physical exam GENERAL: The patient is alert and oriented x3, not in any acute distress. Well developed, well nourished. HEENT: Pupils are round and equally reacting to light. EOMI. No scleral icterus. No conjunctival pallor. Normocephalic, atraumatic. No pharyngeal erythema. No thyromegaly. CARDIOVASCULAR: S1 and S2 present. No murmurs, rubs, or gallops. PULMONARY: Chest is clear to auscultation, no wheezing or crackles. ABDOMEN: Soft, nontender, nondistended, normoactive bowel sounds. No palpable organomegaly. MUSCULOSKELETAL: No joint swelling or deformity. -EXTREMITIES: No cyanosis, clubbing, or pedal edema. Mild swelling and tenderness especially on the ventral surface of the right wrist area. The puncture site is healing. No bruising or ecchymosis noted the swelling mainly in the distal ventral part of the forearm right NEUROLOGICAL: Gross neurological examination did not reveal any focal deficits. SKIN: No rashes. No petechiae Time spent more than 35 minutes Review of Systems CONSTITUTIONAL: No fever, no malaise, no fatigue. HEENT: No recent visual problems or hearing problems. Denied any sore throat. CARDIOVASCULAR: No orthopnea, PND, no palpitations, no syncope. PULMONARY: No shortness of breath, no cough, no hemoptysis. GASTROINTESTINAL: No diarrhea, no nausea, no vomiting, no abdominal pain. Normoactive bowel sounds. NEUROLOGICAL: No headaches, no weakness, no numbness. HEMATOLOGICAL: Denies any bleeding or petechiae. GENITOURINARY: Denies any burning micturition, frequency, or urgency. MUSCULOSKELETAL/RHEUMATOLOGICAL: Denies any joint pain, swelling, or any muscle pain. ENDOCRINE: Denies any polyuria or polydipsia. Past Medical History Past Medical History: Coronary Artery Disease (CAD), GERD/Reflux, Myocardial Infarction ([place]) Additional Past Medical History / Comment(s): Hyperlipidemia, Hypotension, constipation Last Myocardial Infarction Date:: 03/25/18 History of Any Multi-Drug Resistant Organisms: None Reported Past Surgical History: Heart Catheterization With Stent, Hysterectomy, Tonsillectomy Past Anesthesia/Blood Transfusion Reactions: No Reported Reaction Date of Last Stent Placement:: 03/25/18 Past Psychological History: Anxiety, Depression, Panic Disorder, PTSD Smoking Status: Never smoker Past Alcohol Use History: None Reported Past Drug Use History: None Reported - Past Family History Mother Family Medical History: Coronary Artery Disease (CAD) Father Family Medical History: Coronary Artery Disease (CAD) Medications and Allergies Home Medications Medication Instructions Recorded Confirmed Type Omeprazole 20 mg PO DAILY 03/25/18 12/01/20 History ALPRAZolam [Xanax] 1 mg PO TID PRN 02/11/19 12/01/20 History Aspirin EC [Ecotrin Low Dose] 81 mg PO HS 02/11/19 12/01/20 History Ondansetron [Zofran] 4 mg PO DAILY PRN 11/20/20 12/01/20 History Rosuvastatin Calcium [Crestor] 20 mg PO HS 11/20/20 12/01/20 History hydrOXYzine pamoate [hydrOXYzine 25 mg PO TID PRN 11/20/20 12/01/20 History PAMOATE] Ubidecarenone [Co Q-10] 100 mg PO HS 11/21/20 12/01/20 History Cholecalciferol [Vitamin D3 (25 25 mcg PO HS 12/01/20 12/01/20 History Mcg = 1000 Iu)] Nitroglycerin Sl Tabs [Nitrostat] 0.4 mg SUBLINGUAL Q5M PRN 12/01/20 12/01/20 History Prazosin HCl 1 mg PO HS 12/01/20 12/01/20 History Apixaban [Eliquis Starter Pack 0 mg PO DIRECTED 30 Days #1 pack 12/02/20 Rx (for VTE)] Allergies Allergy/AdvReac Type Severity Reaction Status Date / Time dopamine Allergy "WAS TOLD Verified 12/01/20 18:48 BY HOPITAL NOT TO TAKE AGAIN " Penicillins Allergy Dyspnea Verified 12/01/20 18:48 ciprofloxacin [From Cipro] AdvReac Nausea & Verified 12/01/20 18:48 Vomiting & Diarrhea metoprolol AdvReac Nausea & Verified 12/01/20 18:48 Vomiting Tetracyclines AdvReac "RUINED Verified 12/01/20 18:48 TEETH" Physical Exam Vitals: Vital Signs Temp Pulse Pulse Resp BP BP Pulse Ox 12/02/20 00:00 97.6 F 67 16 186/88 98 12/01/20 21:38 98.5 F 62 18 98 12/01/20 20:59 97.6 F 92 16 146/87 99 12/01/20 20:38 69 18 142/92 98 12/01/20 17:42 98.5 F 88 18 145/100 97 Intake and Output 12/01/20 12/01/20 12/02/20 14:59 22:59 06:59 Output Total 350 Balance -350 Output: Urine 350 Other: Weight 89.811 kg GENERAL: The patient is alert and oriented x3, not in any acute distress. Well developed, well nourished. HEENT: Pupils are round and equally reacting to light. EOMI. No scleral icterus. No conjunctival pallor. Normocephalic, atraumatic. No pharyngeal erythema. No thyromegaly. CARDIOVASCULAR: S1 and S2 present. No murmurs, rubs, or gallops. PULMONARY: Chest is clear to auscultation, no wheezing or crackles. ABDOMEN: Soft, nontender, nondistended, normoactive bowel sounds. No palpable organomegaly. MUSCULOSKELETAL: No joint swelling or deformity. EXTREMITIES: No cyanosis, clubbing, or pedal edema. NEUROLOGICAL: Gross neurological examination did not reveal any focal deficits. SKIN: No rashes. No petechiae Results CBC & Chem 7: 12/02/20 05:32 12/02/20 05:32 Labs: Abnormal Lab Results - Last 24 Hours (Table) 12/01/20 Range/Units 18:30 Chloride 108 H (98-107) mmol/L BUN 6 L (7-17) mg/dL Creatinine 1.12 H (0.52-1.04) mg/dL Total Protein 5.8 L (6.3-8.2) g/dL Albumin 3.4 L (3.5-5.0) g/dL Thrombosis Risk Factor Assmnt - Choose All That Apply Any of the Below Risk Factors Present?: Yes Each Factor Represents 1 point: Age 41-60 years Other Risk Factors: Yes Each Risk Factor Represents 2 Points: Arthroscopic surgery Other congenital or acquired thrombophilia - If yes, enter type in comment: No Thrombosis Risk Factor Assessment Total Risk Factor Score: 3 Thrombosis Risk Factor Assessment Level: Moderate Risk
== END 2020-12-02 14:47 | disposition home or self-care (01) | DRG 300 ==
LOC: EC 17:29 → 3SCARD 20:20
PROVIDERS: ADMIT Hospitalist; ATTEND Hospitalist
DX: I82.621 Acute embolism and thrombosis of deep veins of right upper extremity (principal); N17.9 Acute kidney failure, unspecified; I25.10 Atherosclerotic heart disease of native coronary artery without angina pectoris; K21.9 Gastro-esophageal reflux disease without esophagitis; E78.5 Hyperlipidemia, unspecified; K59.00 Constipation, unspecified; F32.9 Major depressive disorder, single episode, unspecified; F41.0 Panic disorder [episodic paroxysmal anxiety]; F43.10 Post-traumatic stress disorder, unspecified; I10 Essential (primary) hypertension; I25.2 Old myocardial infarction; Z79.82 Long term (current) use of aspirin; Z79.899 Other long term (current) drug therapy; Z87.891 Personal history of nicotine dependence; Z95.5 Presence of coronary angioplasty implant and graft; Z90.710 Acquired absence of both cervix and uterus; Z98.890 Other specified postprocedural states; Z88.1 Allergy status to other antibiotic agents; Z88.0 Allergy status to penicillin; Z88.8 Allergy status to other drugs, medicaments and biological substances; Z82.49 Family history of ischemic heart disease and other diseases of the circulatory system
CPT/HCPCS: 36415; 80048; 80053; 83605; 85025; 85610; 85730; 96365; 96375; 96376; 99284

== ENCOUNTER → 2021-01-10 | Outpatient (CLI) | payer OTHER ==
--- NOTE | 2021-01-10 14:36 | CONS ---
CONSULTATION DATE OF SERVICE: 01/10/2021 A 50-year-old lady had been evaluated in Sleep Center for possible obstructive sleep apnea-hypopnea syndrome. HISTORY OF PRESENT ILLNESS/SLEEP-WAKE EVALUATION: Patient usual sleep schedule from 10 p.m. to 7:30 to 10 a.m. basically 7 days a week. Sometimes she has problems with falling asleep, although no TV in bedroom. She sleeps on the side position and stomach position. According to her , she snores loudly and has episodes of stopped breathing during sleep. She wakes up from sleep with choking, dry mouth, panic attack, palpitation, heartburn, possibly nightmares. According to the patient, she wakes up to 15 times per night and goes to rest room once. In the morning, patient wakes up tired, has difficulties to pay attention, falling asleep during the day, has problems with memory, concentration, anxiety, claustrophobia. [place] Sleepiness Scale significantly increased to 12. PAST MEDICAL HISTORY: Positive for coronary artery disease, status post [place] in 2018, history of anemia, sinus problem, PTSD, acid reflux. PAST SURGICAL HISTORY: Tonsillectomy, partial hysterectomy, cardiac catheterization with stent insertion. FAMILY HISTORY: Positive for pneumonia, headaches, sleep apnea. SOCIAL HISTORY: Positive history of smoking half pack a day. Alcohol consumption none. REVIEW OF SYSTEMS: Multiple awakenings from sleep, snoring. PHYSICAL EXAMINATION: GENERAL: lady without distress. VITAL SIGNS: BP 130/89, HR 88, RR 12, height 5 feet 7 inches, weight 210.0, temperature 98.2, oxygen saturation at room air 96%, BMI 32.8. HEENT: PERRLA, EOMI. Oropharynx Mallampati 2-3. Wide pillars. NECK: Fourteen inches in circumference. LUNGS: Clear to percussion and to auscultation. Good air exchange. No wheezing or rhonchi. HEART: S1, S2 regular. No murmurs, gallops, or rubs. ABDOMEN: Slightly obese. EXTREMITIES: No clubbing or cyanosis. DINKEY BRAKEMAN: Awake, alert, and oriented X3. Cranial nerves 2 to 7 intact. There is no fasciculation or atrophy. noted. No focal deficits observed. IMPRESSION: 1. Loud snoring, witnessed episodes of stopped breathing during sleep, small oropharyngeal air space, awakenings from sleep, sleepiness during the day with [place] Sleepiness Scale 12; obstructive sleep apnea-hypopnea syndrome. 2. Coronary artery disease, status post myocardial infarction, status post stent insertion. 3. History of posttraumatic stress disorder. 4. History of anemia. 5. Sinus problems. 6. Acid reflux. 7. Status post partial hysterectomy. 8. Status post tonsillectomy. PLAN: 1. Polysomnography for evaluation of patient's breathing during sleep. 2. CPAP/BiPAP titration if sleep study confirms obstructive sleep apnea-hypopnea syndrome. 3. Preferable position during sleep on the side. 4. No driving if patient feels any sleepiness. 5. I will see patient for follow up visit to explain results of testing and following plan. Sincerely, Vishnu Parks MD, PhD, FAASM Diplomat of [place] [employer] [place] [employer] Surgical Scrub Tech [facility] [place] MMODL / IJN: [id number] /
== END ==
LOC: SLEEP 13:09
PROVIDERS: ATTEND Internal Medicine
DX: G47.33 Obstructive sleep apnea (adult) (pediatric) (principal); I25.10 Atherosclerotic heart disease of native coronary artery without angina pectoris; J34.9 Unspecified disorder of nose and nasal sinuses; I25.2 Old myocardial infarction; K21.9 Gastro-esophageal reflux disease without esophagitis; Z87.891 Personal history of nicotine dependence; F43.10 Post-traumatic stress disorder, unspecified; Z95.9 Presence of cardiac and vascular implant and graft, unspecified; Z90.710 Acquired absence of both cervix and uterus; Z90.09 Acquired absence of other part of head and neck; Z86.2 Personal history of diseases of the blood and blood-forming organs and certain disorders involving the immune mechanism
CPT/HCPCS: 99211

== ENCOUNTER → 2021-03-22 | Outpatient (CLI) | payer OTHER ==
--- NOTE | 2021-03-22 13:47 | SFUN ---
SLEEP CENTER FOLLOW UP NOTE DATE OF SERVICE: 03/22/2020. REASON FOR CONSULTATION: 50-year-old lady has been followed in Sleep Center for treatment of obstructive sleep apnea-hypopnea syndrome. Recently the patient had polysomnogram which showed mild obstructive sleep apnea-hypopnea syndrome and she was started on treatment with CPAP since that time, because patient also has a history of heart problems. In February of 2021 about the same time when patient started to use her CPAP, she had Covid 19 and had some breathing problems. At the present time, she continues to use her CPAP equipment every night and Sleepiness Scale today is 8, which is in normal range. I checked her CPAP unit. Range of the pressure 5-16 with average pressure 10.7, usage is 28 out of 30 nights and 24 out of 30 nights more than 4 hours. Leak is 1 L/minute, which is perfect. Apnea-hypopnea index is 1.0, which is absolutely normal. MEDICATIONS: Omeprazole, aspirin, simvastatin, nitro, Xanax, Eliquis, hydroxyzine, prazosin . PHYSICAL EXAMINATION: GENERAL: Patient in no distress. BP 120/89, HR 91, RR 20, oxygen saturation at room air 94%. Weight 213.8 pounds, temperature 97.5. Oropharynx low position of soft palate, Mallampati 2-3. NECK: Supple, no JVD. Thyroid is not palpable. LUNGS: Clear to percussion and to auscultation. Good air exchange. No wheezing or rhonchi. HEART: S1, S2 regular. No murmurs, gallops, or rubs. ABDOMEN: Soft and nontender. Bowel sounds are present. No organomegaly appreciated. EXTREMITIES: No clubbing or cyanosis. VETERANS ADVISER: Awake, alert, and oriented X3. Cranial nerves 2 to 7 intact. There is no fasciculation or atrophy. noted. No focal deficits observed. IMPRESSION: 1. Mild obstructive sleep apnea-hypopnea syndrome. The patient is on treatment with CPAP, demonstrated good compliance on treatment, benefitting from treatment. [place] Sleepiness Scale decreased from 12 during the first visit to 8 now. 2. Coronary artery disease, status post myocardial infarction, status post stent insertion. 3. Status post COVID-19 in February 2021. 4. History of post-traumatic stress disorder. 5. History of anemia. 6. History of sinus problems. 7. Acid reflux. 8. Status post partial hysterectomy. 9. Status post tonsillectomy. PLAN: 1. Patient will continue to use PAP equipment every night for the whole night. 2. Sleep hygiene with regular time in bed for at least 7-1/2 to 8 hours. 3. Precautions related to driving. No driving if feeling sleepiness. 4. I will maintain all necessary prescription for PAP supplies including mask, tube, filters. 5. Watching weight. 6. Follow-up visit in 6 months or earlier if patient has any problems. Thank you very much for allowing me to participate in management of your patient. Sincerely, Vishnu Parks MD, PhD, FAASM Diplomat of [place] [employer] Special[employer] [place] [employer] of [employer] Medicine Manager Field Service of [facility] [place] MMODL / NADYAN: [id number] /
== END ==
LOC: SLEEP 11:38
PROVIDERS: ATTEND Internal Medicine
DX: G47.33 Obstructive sleep apnea (adult) (pediatric) (principal); I25.10 Atherosclerotic heart disease of native coronary artery without angina pectoris; I25.2 Old myocardial infarction; K21.9 Gastro-esophageal reflux disease without esophagitis; F17.200 Nicotine dependence, unspecified, uncomplicated; Z79.82 Long term (current) use of aspirin; Z79.899 Other long term (current) drug therapy; Z90.89 Acquired absence of other organs; Z87.09 Personal history of other diseases of the respiratory system; Z86.2 Personal history of diseases of the blood and blood-forming organs and certain disorders involving the immune mechanism; Z86.16 Personal history of COVID-19; Z95.5 Presence of coronary angioplasty implant and graft; Z86.59 Personal history of other mental and behavioral disorders; Z88.1 Allergy status to other antibiotic agents; Z88.0 Allergy status to penicillin; Z88.8 Allergy status to other drugs, medicaments and biological substances; Z90.710 Acquired absence of both cervix and uterus

== ENCOUNTER 2021-04-23 04:43 | Emergency (ER) | payer OTHER ==
[2021-04-23 04:52] VITALS: TEMP 98.4
[2021-04-23] MEDS ORDERED: HYDROmorphone 0.5 MG/0.5 ML SYRINGE IVP STA ×2 (05:09→07:28)
[2021-04-23] MEDS ORDERED: ONDANSETRON 4 MG/2 ML VIAL IVP STA (05:09)
--- NOTE | 2021-04-23 05:21 | ED ---
Eye Problem HPI - General Chief complaint: Eye Problems Stated complaint: Post-Op Eye Pain Time Seen by Provider: 04/23/21 04:56 Source: patient, family Mode of arrival: wheelchair Limitations: no limitations - History of Present Illness Initial comments: This patient is a 50-year-old woman who presents to be evaluated for pain to the right eye, which has been worsening since she had a in ophthalmologic procedure performed Friday. The patient states that Dr. Villa had perform surgery to the lower lid of the right eye. This was performed as surgical center in [place]. 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 Patient states she has been having pain since that time. Over the interval since then she has noted increase in swelling. Patient states that the pain had started increasing yesterday in the evening and has been bothering her more since that time. Yesterday she had taken ibuprofen in the morning and then a Tylenol after lunch. She has not taken other pain medicine. She has not noted fevers. There is some tearing noted. She is not able to assess the vision as she states the lid is too swollen to open. MD chief complaint: eye pain -: days(s) Onset Description: gradual Location: right eye If Injury: other Severity: severe If Pain, Quality: aching Consistency: constant Context: recent eye procedure Treatments Prior to Arrival: none - Related Data Home Medications Medication Instructions Recorded Confirmed Omeprazole 20 mg PO DAILY 03/25/18 12/01/20 ALPRAZolam [Xanax] 1 mg PO TID PRN 02/11/19 12/01/20 Aspirin EC [Ecotrin Low Dose] 81 mg PO HS 02/11/19 12/01/20 Ondansetron [Zofran] 4 mg PO DAILY PRN 11/20/20 12/01/20 Rosuvastatin Calcium [Crestor] 20 mg PO HS 11/20/20 12/01/20 hydrOXYzine pamoate [hydrOXYzine 25 mg PO TID PRN 11/20/20 12/01/20 PAMOATE] Ubidecarenone [Co Q-10] 100 mg PO HS 11/21/20 12/01/20 Cholecalciferol [Vitamin D3 (25 25 mcg PO HS 12/01/20 12/01/20 Mcg = 1000 Iu)] Nitroglycerin Sl Tabs [Nitrostat] 0.4 mg SUBLINGUAL Q5M PRN 12/01/20 12/01/20 Prazosin HCl 1 mg PO HS 12/01/20 12/01/20 Previous Rx's Medication Instructions Recorded Apixaban [Eliquis Starter Pack 0 mg PO DIRECTED 30 Days #1 pack 12/02/20 (for VTE)] HYDROcodone/APAP 5-325MG [[place] 5] 1 each PO Q6HR PRN #12 tab 04/23/21 Allergies Allergy/AdvReac Type Severity Reaction Status Date / Time dopamine Allergy "WAS TOLD Verified 12/01/20 18:48 BY HOPITAL NOT TO TAKE AGAIN " fentanyl Allergy Anaphylaxis Verified 04/23/21 04:52 Penicillins Allergy Dyspnea Verified 12/01/20 18:48 Tetracyclines Allergy "RUINED Verified 04/23/21 04:52 TEETH" ciprofloxacin [From Cipro] AdvReac Nausea & Verified 12/01/20 18:48 Vomiting & Diarrhea metoprolol AdvReac Nausea & Verified 12/01/20 18:48 Vomiting Review of Systems ROS Statement: Those systems with pertinent positive or pertinent negative responses have been documented in the HPI. ROS Other: All systems not noted in ROS Statement are negative. Constitutional: Denies: fever, chills Eyes: Reports: eye pain, eye discharge. Denies: vision change Respiratory: Denies: cough, dyspnea Cardiovascular: Denies: chest pain, palpitations Gastrointestinal: Reports: nausea. Denies: abdominal pain, vomiting Skin: Denies: rash Past Medical History Past Medical History: Coronary Artery Disease (CAD), GERD/Reflux, Myocardial Infarction ([place]) Additional Past Medical History / Comment(s): Hyperlipidemia, Hypotension, constipation Last Myocardial Infarction Date:: 03/25/18 History of Any Multi-Drug Resistant Organisms: None Reported Past Surgical History: Heart Catheterization With Stent, Hysterectomy, Tonsillectomy Additional Past Surgical History / Comment(s): EYE SURGERY Past Anesthesia/Blood Transfusion Reactions: No Reported Reaction Date of Last Stent Placement:: 03/25/18 Past Psychological History: Anxiety, Panic Disorder, PTSD Smoking Status: Current every day smoker Past Alcohol Use History: None Reported Past Drug Use History: None Reported - Past Family History Mother Family Medical History: Coronary Artery Disease (CAD) Father Family Medical History: Coronary Artery Disease (CAD) General Exam Limitations: no limitations General appearance: alert, in no apparent distress Head exam: Present: atraumatic, normocephalic Eye exam: Present: periorbital swelling, other (Patient has moderate amount of right periorbital swelling. Small amount of ecchymosis. No abnormal erythema.) Pupils: Present: other (Given the degree of swelling and tenderness I was not able to retract the patient's eyelid to visualize the globe. Left appears normal.) Respiratory exam: Present: normal lung sounds bilaterally. Absent: respiratory distress, wheezes, rales, rhonchi, stridor Cardiovascular Exam: Present: regular rate, normal rhythm, normal heart sounds. Absent: systolic murmur, diastolic murmur, rubs, gallop Skin exam: Present: warm, dry, intact, normal color. Absent: rash Course Vital Signs 04/23/21 04/23/21 04:47 06:00 Temperature 98.4 F Pulse Rate 94 77 Respiratory 18 16 Rate Blood Pressure 156/89 O2 Sat by Pulse 98 96 Oximetry - Reevaluation(s) Reevaluation #1: 04/23/21 06:29 I discussed the case with the on-call physician for the [place] [facility], Dr. Hoang, and they will see the patient at [facility] at 11 AM today for postsurgical follow-up. Medical Decision Making - Medical Decision Making Patient is having moderately good relief of symptoms with the analgesic here. - Lab Data Result diagrams: 04/23/21 05:23 04/23/21 05:23 Lab Results 04/23/21 04/23/21 Range/Units 05:23 05:23 WBC 12.2 H (3.8-10.6) k/uL RBC 4.79 (3.80-5.40) m/uL Hgb 15.5 (11.4-16.0) gm/dL Hct 44.0 (34.0-46.0) % MCV 91.7 (80.0-100.0) fL MCH 32.3 (25.0-35.0) pg MCHC 35.2 (31.0-37.0) g/dL RDW 13.3 (11.5-15.5) % Plt Count 369 (150-450) k/uL MPV 6.5 Neutrophils % 57 % Lymphocytes % 36 % Monocytes % 4 % Eosinophils % 2 % Basophils % 1 % Neutrophils # 6.9 (1.3-7.7) k/uL Lymphocytes # 4.4 (1.0-4.8) k/uL Monocytes # 0.5 (0-1.0) k/uL Eosinophils # 0.3 (0-0.7) k/uL Basophils # 0.1 (0-0.2) k/uL Sodium 140 (137-145) mmol/L Potassium 3.7 (3.5-5.1) mmol/L Chloride 108 H (98-107) mmol/L Carbon Dioxide 27 (22-30) mmol/L Anion Gap 5 mmol/L BUN 9 (7-17) mg/dL Creatinine 0.80 (0.52-1.04) mg/dL Est GFR (CKD-EPI)AfAm >90 (>60 ml/min/1.73 sqM) Est GFR (CKD-EPI)NonAf 87 (>60 ml/min/1.73 sqM) Glucose 111 H (74-99) mg/dL Calcium 9.5 (8.4-10.2) mg/dL C-Reactive Protein 1.0 H (<1.0) mg/dL Disposition Clinical Impression: Post-operative pain Disposition: HOME SELF-CARE Condition: Fair Instructions (If sedation given, give patient instructions): Eye Pain (ED) Prescriptions: HYDROcodone/APAP 5-325MG [[place] 5] 1 each PO Q6HR PRN #12 tab PRN Reason: Pain Is patient prescribed a controlled substance at d/c from ED?: Yes When asked, does pt state using other controlled substances?: Yes If prescribed controlled substance>3 days was MAPS reviewed?: Prescribed <3 Days If opioid is for acute pain is fill amount 7 days or less?: Yes If Rx opioid, was Start Talking consent form obtained?: Yes Referrals: Nomi Hood III, MD [Primary Care Provider] - 1-2 days
[2021-04-23 05:42] LABS: Basophils # (A) 0.1 k/uL (0-0.2); Basophils % (A) 1 %; Eosinophils # (A) 0.3 k/uL (0-0.7); Eosinophils % (A) 2 %; HGB 15.5 gm/dL (11.4-16.0); Lymphocytes # (A) 4.4 k/uL (1.0-4.8); Lymphocytes % (A) 36 %; MCH 32.3 pg (25.0-35.0); MCHC 35.2 g/dL (31.0-37.0); MCV 91.7 fL (80.0-100.0); Mean Platelet Volume 6.5; Monocytes # (A) 0.5 k/uL (0-1.0); Monocytes % (A) 4 %; Neutrophils # (A) 6.9 k/uL (1.3-7.7); Neutrophils % (A) 57 %; Platelet Count 369 k/uL (150-450); RBC 4.79 m/uL (3.80-5.40); RDW 13.3 % (11.5-15.5); WBC 12.2 k/uL (3.8-10.6)
[2021-04-23 06:08] LABS: African American GFR (CKD) >90 (>60 ml/min/1.73 sqM); Anion Gap 5 mmol/L; Blood Urea Nitrogen 9 mg/dL (7-17); Calcium 9.5 mg/dL (8.4-10.2); Carbon Dioxide 27 mmol/L (22-30); Chloride 108 mmol/L (98-107); Glucose 111 mg/dL (74-99); Non-African American GFR(CKD) 87 (>60 ml/min/1.73 sqM); Potassium 3.7 mmol/L (3.5-5.1); Sodium 140 mmol/L (137-145)
[2021-04-23 07:42] VITALS: BP 136/97; PULSE 80; RESP 20
== END 2021-04-23 08:07 | disposition home or self-care (01) ==
LOC: EC 04:43
DX: G89.18 Other acute postprocedural pain (principal); H57.11 Ocular pain, right eye; E78.5 Hyperlipidemia, unspecified; I25.2 Old myocardial infarction; I25.10 Atherosclerotic heart disease of native coronary artery without angina pectoris; K21.9 Gastro-esophageal reflux disease without esophagitis; F41.0 Panic disorder [episodic paroxysmal anxiety]; F17.200 Nicotine dependence, unspecified, uncomplicated; Z79.01 Long term (current) use of anticoagulants; Z79.82 Long term (current) use of aspirin; Z88.0 Allergy status to penicillin
CPT/HCPCS: 36415; 80048; 85025; 86140; 99283; 96374; 96375; 96376; J2405; J1170; 99284

== ENCOUNTER 2021-07-06 01:53 | Observation (INO) | payer OTHER ==
[2021-07-06] MEDS ORDERED: ONDANSETRON 4 MG/2 ML VIAL IVP STA (02:23)
[2021-07-06 02:27] LABS: Basophils # (A) 0.1 k/uL (0-0.2); Basophils % (A) 0 %; Eosinophils # (A) 0.2 k/uL (0-0.7); Eosinophils % (A) 2 %; HCT 46.6 % (34.0-46.0); HGB 15.3 gm/dL (11.4-16.0); Lymphocytes % (A) 40 %; MCH 31.4 pg (25.0-35.0); MCHC 32.9 g/dL (31.0-37.0); MCV 95.4 fL (80.0-100.0); Monocytes # (A) 0.5 k/uL (0-1.0); Monocytes % (A) 4 %; Neutrophils # (A) 6.6 k/uL (1.3-7.7); Neutrophils % (A) 53 %; Platelet Count 375 k/uL (150-450); RBC 4.88 m/uL (3.80-5.40); RDW 13.7 % (11.5-15.5); WBC 12.6 k/uL (3.8-10.6)
[2021-07-06] MEDS ORDERED: HYDROmorphone 0.5 MG/0.5 ML SYRINGE IVP STA ×3 (02:32→04:23)
[2021-07-06 02:42] LABS: ALT 13 U/L (4-34); AST 20 U/L (14-36); African American GFR (CKD) >90 (>60 ml/min/1.73 sqM); Albumin 3.8 g/dL (3.5-5.0); Alkaline Phosphatase 97 U/L (38-126); Anion Gap 10 mmol/L; Blood Urea Nitrogen 6 mg/dL (7-17); Calcium 10.1 mg/dL (8.4-10.2); Carbon Dioxide 24 mmol/L (22-30); Chloride 107 mmol/L (98-107); Glucose 136 mg/dL (74-99); Magnesium 1.8 mg/dL (1.6-2.3); Non-African American GFR(CKD) 78 (>60 ml/min/1.73 sqM); Potassium 3.6 mmol/L (3.5-5.1); Sodium 141 mmol/L (137-145); Total Bilirubin 0.3 mg/dL (0.2-1.3); Total Protein 6.2 g/dL (6.3-8.2)
[2021-07-06 02:51] LABS: Partial Thromboplastin Time 25.2 sec (22.0-30.0); Prothrombin Time 10.4 sec (9.0-12.0)
--- NOTE | 2021-07-06 02:51 | XR ---
EXAMINATION TYPE: XR chest 1V DATE OF EXAM: 07/06/2021 COMPARISON: 08/25/2018 HISTORY: Short of breath Heart and mediastinum are normal. Lungs are clear. Diaphragm is normal. Bony thorax appears normal. IMPRESSION: Normal chest. No change.
--- NOTE | 2021-07-06 03:24 | ED ---
Chest Pain HPI - General Chief Complaint: Chest Pain Stated Complaint: Chest Pain Time Seen by Provider: 07/06/21 02:10 Source: patient, family Mode of arrival: ambulatory Limitations: no limitations - History of Present Illness MD Complaint: chest pain -: hour(s) Onset: during rest Pain Location: substernal Pain Radiation: back Severity: moderate Quality: aching Consistency: constant Improves With: nothing Worsens With: nothing Anginal Symptoms: nausea Treatments Prior to Arrival: none - Related Data Home Medications Medication Instructions Recorded Confirmed Omeprazole 20 mg PO DAILY 03/25/18 07/06/21 ALPRAZolam [Xanax] 0.5 - 1 mg PO TID PRN 02/11/19 07/06/21 Aspirin EC [Ecotrin Low Dose] 81 mg PO DAILY 02/11/19 07/06/21 hydrOXYzine pamoate [hydrOXYzine 25 mg PO Q6H PRN 11/20/20 07/06/21 PAMOATE] Nitroglycerin Sl Tabs [Nitrostat] 0.4 mg SUBLINGUAL Q5M PRN 12/01/20 07/06/21 Prazosin HCl 1 mg PO HS 12/01/20 07/06/21 Acetaminophen-Codeine 300-30mg 1 tab PO Q6H PRN 07/06/21 07/06/21 [Tylenol w/codeine #3] Erythromycin Ophth Oint [Romycin 1 applic RIGHT EYE BID 07/06/21 07/06/21 Ophth Oint] Ondansetron Odt [Zofran Odt] 4 mg PO Q12HR PRN 07/06/21 07/06/21 Allergies Allergy/AdvReac Type Severity Reaction Status Date / Time dopamine Allergy "WAS TOLD Verified 07/06/21 06:18 BY HOPITAL NOT TO TAKE AGAIN " fentanyl Allergy Anaphylaxis Verified 07/06/21 06:18 Penicillins Allergy Dyspnea Verified 07/06/21 06:18 Tetracyclines Allergy "RUINED Verified 07/06/21 06:18 TEETH" ciprofloxacin [From Cipro] AdvReac Nausea & Verified 07/06/21 06:18 Vomiting & Diarrhea metoprolol AdvReac Nausea & Verified 07/06/21 06:18 Vomiting Review of Systems ROS Statement: Those systems with pertinent positive or pertinent negative responses have been documented in the HPI. ROS Other: All systems not noted in ROS Statement are negative. Constitutional: Denies: fever, chills Respiratory: Denies: cough, dyspnea Cardiovascular: Reports: chest pain. Denies: palpitations Gastrointestinal: Reports: abdominal pain, nausea. Denies: vomiting, diarrhea Genitourinary: Denies: dysuria, frequency, hematuria Musculoskeletal: Reports: back pain Skin: Denies: rash Neurological: Denies: headache, weakness, numbness EKG Findings - EKG Results: EKG: interpreted by ERMD, sinus rhythm (Rate 91 bpm), normal axis - Blocks, [place], Hypertrophy, ST Abn: QRS axis and voltage: low voltage (<0.5 MV total QRS and <1.0 MV in each precordial lead) Repolarization changes or abnormalities: nonspecific abnormality, ST segment, and/or T wave Past Medical History Past Medical History: Coronary Artery Disease (CAD), GERD/Reflux, Myocardial Infarction ([place]) Additional Past Medical History / Comment(s): Hyperlipidemia, Hypotension, constipation Last Myocardial Infarction Date:: 03/25/18 History of Any Multi-Drug Resistant Organisms: None Reported Past Surgical History: Heart Catheterization With Stent, Hysterectomy, Tonsillectomy Additional Past Surgical History / Comment(s): EYE SURGERY Past Anesthesia/Blood Transfusion Reactions: No Reported Reaction Date of Last Stent Placement:: 03/25/18 Past Psychological History: Anxiety, Panic Disorder, PTSD Smoking Status: Current every day smoker Past Alcohol Use History: None Reported Past Drug Use History: None Reported - Past Family History Mother Family Medical History: Coronary Artery Disease (CAD) Father Family Medical History: Coronary Artery Disease (CAD) General Exam Limitations: no limitations General appearance: alert, in no apparent distress Head exam: Present: atraumatic, normocephalic Eye exam: Present: normal appearance. Absent: scleral icterus, conjunctival injection ENT exam: Present: normal oropharynx Neck exam: Present: normal inspection, full ROM Respiratory exam: Present: normal lung sounds bilaterally. Absent: respiratory distress, wheezes, rales, rhonchi, stridor Cardiovascular Exam: Present: regular rate, normal rhythm, normal heart sounds. Absent: systolic murmur, diastolic murmur, rubs, gallop GI/Abdominal exam: Present: soft, tenderness, normal bowel sounds. Absent: distended, guarding, rebound, rigid, mass, pulsatile mass, hernia Extremities exam: Present: normal inspection, normal capillary refill. Absent: pedal edema, calf tenderness Back exam: Present: normal inspection. Absent: CVA tenderness (R), CVA tenderness (L) Neurological exam: Present: alert Skin exam: Present: warm, dry, intact, normal color. Absent: rash Course Vital Signs 07/06/21 07/06/21 07/06/21 01:55 02:59 04:00 Temperature 98.1 F Pulse Rate 105 H 89 83 Respiratory 22 16 16 Rate Blood Pressure 116/83 113/75 121/83 O2 Sat by Pulse 97 94 L 98 Oximetry 07/06/21 07/06/21 06:00 07:04 Temperature Pulse Rate 80 80 Respiratory 16 Rate Blood Pressure 151/86 O2 Sat by Pulse 97 97 Oximetry Chest Pain MDM - MDM Patient is a 51-year-old woman with chest pain. Most features are typical, and on the exam there is some epigastric tenderness. Will admit patient to have serial cardiac enzymes but suspect more likely to be related to biliary colic. Patient admitted with tonsils to both cardiology and surgery. Disposition Clinical Impression: Chest pain Narrative: Possible cholecystitis Disposition: ADMITTED IP TO THIS HOSP Condition: Fair
[2021-07-06] MEDS ORDERED: NITROGLYCERIN SL TABS 0.4 MG TAB SUBLINGUAL PRN (03:51)
[2021-07-06 03:54] LABS: Amylase 58 U/L (30-110); Lipase 98 U/L (23-300)
--- NOTE | 2021-07-06 04:13 | CT ---
EXAMINATION TYPE: CT chest angio for PE DATE OF EXAM: 07/06/2021 COMPARISON: None HISTORY: pe CT DLP: 342.8 mGycm Automated exposure control for dose reduction was used. CONTRAST: Performed with IV Contrast, patient injected with 60 mL of Isovue 370. There are 3-D post processed images. There is some mild interstitial infiltrate and atelectasis at the lung bases. There is no pleural eff usion. Heart size is normal. There is no pericardial effusion. There is no mediastinal adenopathy. There are no hilar masses. Thoracic aorta is intact. There is no aneurysm or dissection. There is normal contrast opacification of the pulmonary arteries. There are no filling defects. The thoracic spine is intact. There is no compression fracture. I see no bony destructive process. St ernum is intact. Upper abdominal soft tissues are intact. There is possible wall thickening involving the gallbladder. IMPRESSION: No evidence of pulmonary embolism. Minimal interstitial density and subsegmental atelectasis at the l ipedad bases. Possible pericholecystic fluid and gallbladder wall thickening.
[2021-07-06 08:01] LABS: Basophils % (A) 0 %; Eosinophils # (A) 0.1 k/uL (0-0.7); Eosinophils % (A) 1 %; HCT 43.9 % (34.0-46.0); HGB 14.6 gm/dL (11.4-16.0); Lymphocytes # (A) 3.9 k/uL (1.0-4.8); Lymphocytes % (A) 35 %; MCHC 33.2 g/dL (31.0-37.0); MCV 96.4 fL (80.0-100.0); Mean Platelet Volume 6.9; Monocytes # (A) 0.5 k/uL (0-1.0); Monocytes % (A) 4 %; Neutrophils # (A) 6.4 k/uL (1.3-7.7); Neutrophils % (A) 58 %; Platelet Count 377 k/uL (150-450); RBC 4.55 m/uL (3.80-5.40); RDW 13.6 % (11.5-15.5); WBC 11.1 k/uL (3.8-10.6)
[2021-07-06] MEDS: FAMOTIDINE 20 MG/2 ML VIAL IV SCH ×2 (08:08→20:20)
[2021-07-06] MEDS: HEPARIN SODIUM,PORCINE/PF 5,000 UNIT/0.5 ML SYRINGE SQ SCH ×2 (08:08→20:20)
[2021-07-06 08:16] LABS: ALT 13 U/L (4-34); AST 19 U/L (14-36); African American GFR (CKD) 87 (>60 ml/min/1.73 sqM); Albumin 3.5 g/dL (3.5-5.0); Albumin/Globulin Ratio 1.5; Alkaline Phosphatase 90 U/L (38-126); Anion Gap 9 mmol/L; Bilirubin,Unconjugated 0.2 mg/dL (0.0-1.1); Blood Urea Nitrogen 6 mg/dL (7-17); Calcium 9.8 mg/dL (8.4-10.2); Carbon Dioxide 26 mmol/L (22-30); Chloride 105 mmol/L (98-107); Globulin 2.3 g/dL; Glucose 116 mg/dL (74-99); Magnesium 1.9 mg/dL (1.6-2.3); Non-African American GFR(CKD) 75 (>60 ml/min/1.73 sqM); Potassium 3.8 mmol/L (3.5-5.1); Sodium 140 mmol/L (137-145); Total Bilirubin 0.3 mg/dL (0.2-1.3); Total Protein 5.8 g/dL (6.3-8.2)
[2021-07-06] MEDS: SODIUM CHLORIDE 0.9% 1,000 ML IV SCH ×2 (08:18→20:28)
--- NOTE | 2021-07-06 08:33 | P.HPIM ---
History of Present Illness This is a pleasant 51 years old female with past medical history of coronary artery disease status post post stent, GERD, hyperlipidemia, constipation, anxiety and PTSD also she is cigarette smoker. She sees Dr. Hood and her card iologist is Dr. Lassiter. While assistance representative is Dr. Lipscomb Patient presents because of chest pain and back pain for 3 days last week which is resolved but back last night as 10/10 and currently improved down to its/10. However patient says that her pain actually starts in the epigastric and then goes to the central chest and then goes to the back, patient felt like sharp burning. she has some nausea but no vomiting And she's been complaining of from diarrhea continuously every 1 hour No other abdominal pain. No urinary tract symptoms. No fever She smokes about 3 cigarettes per day, no alcohol or illicit drugs. 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 D-dimer is elevated was 0.9 and normal INR at 1.0. BNP is unremarkable except for mildly elevated glucose at normal liver enzymes. Troponin 2 is negative with 0.012., Amylase and Lipase Are Normal. CT of the chest: No PE, possible pericholecystic fluid and gallbladder wall thickening, also there is some mild interstitial infiltrate and atelectasis of the lung bases. Chest x-ray: Normal appearance Estimated emergency room she received Dilaudid and aspirin 325 mg daily, with cardiology and surgery team consulted Review of Systems CONSTITUTIONAL: No fever, no malaise, no fatigue. HEENT: No recent visual problems or hearing problems. Denied any sore throat. CARDIOVASCULAR: No orthopnea, PND, no palpitations, no syncope. PULMONARY: No shortness of breath, no cough, no hemoptysis. GASTROINTESTINAL: No diarrhea, no nausea, no vomiting, no abdominal pain. Nor moactive bowel sounds. NEUROLOGICAL: No headaches, no weakness, no numbness. HEMATOLOGICAL: Denies any bleeding or petechiae. GENITOURINARY: Denies any burning micturition, frequency, or urgency. MUSCULOSKELETAL/RHEUMATOLOGICAL: Denies any joint pain, swelling, or any muscle pain. ENDOCRINE: Denies any polyuria or polydipsia. Past Medical History Past Medical History: Coronary Artery Disease (CAD), GERD/Reflux, Myocardial Infarction ([place]) Additional Past Medical History / Comment(s): Hyperlipidemia, Hypotension, constipation Last Myocardial Infarction Date:: 03/25/18 History of Any Multi-Drug Resistant Organisms: None Reported Past Surgical History: Heart Catheterization With Stent, Hysterectomy, Tonsillectomy Additional Past Surgical History / Comment(s): EYE SURGERY Past Anesthesia/Blood Transfusion Reactions: No Reported Reaction Date of Last Stent Placement:: 03/25/18 Past Psychological History: Anxiety, Panic Disorder, PTSD Smoking Status: Current every day smoker Past Alcohol Use History: None Reported Past Drug Use History: None Reported - Past Family History Mother Family Medical History: Coronary Artery Disease (CAD) Father Family Medical History: Coronary Artery Disease (CAD) Medications and Allergies Home Medications Medication Instructions Recorded Confirmed Type Omeprazole 20 mg PO DAILY 03/25/18 07/06/21 History ALPRAZolam [Xanax] 0.5 - 1 mg PO TID PRN 02/11/19 07/06/21 History Aspirin EC [Ecotrin Low Dose] 81 mg PO DAILY 02/11/19 07/06/21 History hydrOXYzine pamoate [hydrOXYzine 25 mg PO Q6H PRN 11/20/20 07/06/21 History PAMOATE] Nitroglycerin Sl Tabs [Nitrostat] 0.4 mg SUBLINGUAL Q5M PRN 12/01/20 07/06/21 History Prazosin HCl 1 mg PO HS 12/01/20 07/06/21 History Acetaminophen-Codeine 300-30mg 1 tab PO Q6H PRN 07/06/21 07/06/21 History [Tylenol w/codeine #3] Erythromycin Ophth Oint [Romycin 1 applic RIGHT EYE BID 07/06/21 07/06/21 History Ophth Oint] Ondansetron Odt [Zofran Odt] 4 mg PO Q12HR PRN 07/06/21 07/06/21 History Allergies Allergy/AdvReac Type Severity Reaction Status Date / Time dopamine Allergy "WAS TOLD Verified 07/06/21 06:18 BY [facility]OPITAL NOT TO TAKE AGAIN " fentanyl Allergy Anaphylaxis Verified 07/06/21 06:18 Penicillins Allergy Dyspnea Verified 07/06/21 06:18 Tetracyclines Allergy "RUINED Verified 07/06/21 06:18 TEETH" ciprofloxacin [From Cipro] AdvReac Nausea & Verified 07/06/21 06:18 Vomiting & Diarrhea metoprolol AdvReac Nausea & Verified 07/06/21 06:18 Vomiting Physical Exam Vitals: Vital Signs Temp Pulse Resp BP Pulse Ox 07/06/21 06:00 80 97 07/06/21 04:00 83 16 121/83 98 07/06/21 02:59 89 16 113/75 94 L 07/06/21 01:55 98.1 F 105 H 22 116/83 97 Intake and Output 07/05/21 07/05/21 07/06/21 14:59 22:59 06:59 Other: Weight 92.533 kg -GENERAL: The patient is alert and oriented x3, not in any acute distress. Well developed, well nourished. HEENT: Pupils are round and equally reacting to light. EOMI. No scleral icterus. No conjunctiv obese al pallor. Normocephalic, atraumatic. No pharyngeal erythema. No thyromegaly. CARDIOVASCULAR: S1 and S2 present. No murmurs, rubs, or gallops. PULMONARY: Chest is clear to auscultation, no wheezing or crackles. -ABDOMEN: Soft, epigastric tenderness, no rebound tenderness, nondistended, normoactive bowel sounds. No palpable organomegaly. MUSCULOSKELETAL: No joint swelling or deformity. EXTREMITIES: No cyanosis, clubbing, or pedal edema. NEUROLOGICAL: Gross neurological examination did not reveal any focal deficits. SKIN: No rashes. No petechiae Results CBC & Chem 7: 07/06/21 07:30 07/06/21 07:30 Labs: Abnormal Lab Results - Last 24 Hours (Table) 07/06/21 07/06/21 07/06/21 Range/Units 02:20 02:20 02:20 WBC 12.6 H (3.8-10.6) k/uL Hct 46.6 H (34.0-46.0) % Lymphocytes # 5.0 H (1.0-4.8) k/uL D-Dimer 0.91 H (<0.60) mg/L FEU BUN 6 L (7-17) mg/dL Glucose 136 H (74-99) mg/dL Total Protein 6.2 L (6.3-8.2) g/dL Assessment and Plan Assessment: Chest pain. Negative CTPA for PE. Rule out cardiac causes. 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 Cardiology consulted and continue with aspirin Surgical team consulted for possible gallbladder disease Patient management, IV fluids, bowel rest Check hemoglobin A1c and Labs and medication were reviewed.. Continue same treatment. Continue with symptomatic treatment. Resume home medication. Monitor lytes and vitals. DVT and GI prophylaxis. Further recommendations depends on the clinical course of the patient DVT prophylaxis: Subcutaneous heparin GI Prophylaxis: Pepcid PT/OT: Pending Prognosis is guarded
--- NOTE | 2021-07-06 09:07 | US ---
EXAMINATION TYPE: US venous doppler duplex LE DATE OF EXAM: 07/06/2021 7:34 AM COMPARISON: NONE CLINICAL HISTORY: Chest pain. No leg symptoms, rule out DVT SIDE PERFORMED: Bilateral TECHNIQUE: The lower extremity deep venous system is examined utilizing real time linear array sonog sushil with graded compression, doppler sonography and color-flow sonography. VESSELS IMAGED: Common Femoral Vein Deep Femoral Vein Greater Saphenous Vein * Femoral Vein Popliteal Vein Small Saphenous Vein * Proximal Calf Veins (* superficial vessels) Right Leg: Appears negative for DVT Left Leg: Appears negative for DVT IMPRESSION: Grayscale, color doppler, spectral doppler imaging performed of the deep veins of the lo wer extremities. There is normal flow, compressibility, vascular waveforms.
[2021-07-06] MEDS ORDERED: ONDANSETRON 4 MG/2 ML VIAL IVP PRN (09:35)
[2021-07-06] MEDS: HYDROmorphone 0.5 MG/0.5 ML SYRINGE IVP PRN ×3 (09:47→17:36)
[2021-07-06] MEDS: ERYTHROMYCIN 5 MG/GM OPHTH OINT 3.5 GM TUBE RIGHT EYE SCH ×2 (09:48→20:20)
--- NOTE | 2021-07-06 09:53 | P.CRDCN ---
History of Present Illness History of present illness: HISTORY OF PRESENTING ILLNESS This is a pleasant 51-year-old female past medical history significant for artery disease in the setting of an acute [place] status post PCI of the RCA 201 8, hypertension and PTSD. She follows in the office with her Skaf. We have been asked to see in consultation for chest pain. She presented to the hospital with symptoms of epigastric discomfort with radiation to the right upper quadrant. Her symptoms have been going on for approximately 3 days. It is described as a burning sensation associated with some intermittent nausea. She also has some associated diarrhea. She denies shortness of breath, dizziness or palpitations. In November of this year she underwent repeat cardiac catheterization revealing a patent stent in the RCA and otherwise normal coronary arteries. Most recent echocardiogram obtained April 2020 revealed preserved LV systolic function with ejection fraction 50% with mild inferior wall hypokinesia noted. DIAGNOSTICS EKG reveals sinus mechanism nonspecific ST and T-wave abnormalities, consistent with previous EKG with no acute changes noted. Chest xray negative for an acute cardiopulmonary process. Laboratory reviewed, ABC 12.6 on admission repeat today 11.1, hemoglobin 14.6, platelets 377, d-dimer 0.91, sodium 140, potassium 3.8, creatinine 0.9, magnesium 1.9, cardiac enzymes negative 2. Current cardiac medications include aspirin 81 mg daily and prazosin 1 mg at bedtime. REVIEW OF SYSTEMS At the time of my exam: CONSTITUTIONAL: Denies fever or chills. CARDIOVASCULAR: Denies chest pain, shortness of breath, orthopnea, PND or palpitations. RESPIRATORY: Denies cough. GASTROINTESTINAL: Complains of epigastric and right upper quadrant tenderness. Denies abdominal pain, diarrhea, constipation, nausea or vomiting. MUSCULOSKELETAL: Denies myalgias. NEUROLOGIC: Denies numbness, tingling, headache or weakness. ENDOCRINE: Denies fatigue, weight change, polydipsia or polyurina. GENITOURINARY: Denies burning, hematuria or urgency with micturation. HEMATOLOGIC: Denies history of anemia or bleeding. PHYSICAL EXAMINATION Blood pressure 127/85 heart rate 85 afebrile and maintaining oxygen saturation on room air. CONSTITUTIONAL: No apparent distress. HEENT: Head is normocephalic. Pupils are equal, round. Sclerae anicteric. Mucous membranes of the mouth are moist. No JVD. No carotid bruit. CHEST EXAMINATION: Lungs are clear to auscultation. No chest wall tenderness is noted on palpation or with deep breathing. HEART EXAMINATION: Regular rate and rhythm. S1, S2 heard. No murmurs, gallops or rub. ABDOMEN: Soft, right upper quadrant tender on palpation. EXTREMITIES: 2+ peripheral pulses, no lower extremity edema and no calf tenderness. NEUROLOGIC EXAMINATION: Patient is awake, alert and oriented x3. ASSESSMENT Epigastric pain Leukocytosis Coronary artery disease status post PCI to the RCA, stable PLAN An acute coronary event has been ruled out. Pain is atypical for angina, reproducible epigastric and right upper quadrant tenderness noted. Consider possible cholecystitis. Surgical evaluation pending. No further testing required from a cardiac perspective. Clinically stable if she needs to undergo surgical intervention. There are no cardiac contraindications. Follow-up upon discharge with Dr. Nicholas. Thank you kindly for this consultation. Nurse Practitioner note has been reviewed, I agree with a documented findings and plan of care. Patient was seen and examined. Past Medical History Past Medical History: Coronary Artery Disease (CAD), GERD/Reflux, Myocardial Infarction ([place]) Additional Past Medical History / Comment(s): Hyperlipidemia, Hypotension, constipation Last Myocardial Infarction Date:: 03/25/18 History of Any Multi-Drug Resistant Organisms: None Reported Past Surgical History: Heart Catheterization With Stent, Hysterectomy, Tonsillectomy Additional Past Surgical History / Comment(s): EYE SURGERY Past Anesthesia/Blood Transfusion Reactions: No Reported Reaction Date of Last Stent Placement:: 03/25/18 Past Psychological History: Anxiety, Panic Disorder, PTSD Smoking Status: Current every day smoker Past Alcohol Use History: None Reported Past Drug Use History: None Reported - Past Family History Mother Family Medical History: Coronary Artery Disease (CAD) Father Family Medical History: Coronary Artery Disease (CAD) Medications and Allergies Home Medications Medication Instructions Recorded Confirmed Type Omeprazole 20 mg PO DAILY 03/25/18 07/06/21 History ALPRAZolam [Xanax] 0.5 - 1 mg PO TID PRN 02/11/19 07/06/21 History Aspirin EC [Ecotrin Low Dose] 81 mg PO DAILY 02/11/19 07/06/21 History hydrOXYzine pamoate [hydrOXYzine 25 mg PO Q6H PRN 11/20/20 07/06/21 History PAMOATE] Nitroglycerin Sl Tabs [Nitrostat] 0.4 mg SUBLINGUAL Q5M PRN 12/01/20 07/06/21 History Prazosin HCl 1 mg PO HS 12/01/20 07/06/21 History Acetaminophen-Codeine 300-30mg 1 tab PO Q6H PRN 07/06/21 07/06/21 History [Tylenol w/codeine #3] Erythromycin Ophth Oint [Romycin 1 applic RIGHT EYE BID 07/06/21 07/06/21 History Ophth Oint] Ondansetron Odt [Zofran Odt] 4 mg PO Q12HR PRN 07/06/21 07/06/21 History Allergies Allergy/AdvReac Type Severity Reaction Status Date / Time dopamine Allergy "WAS TOLD Verified 07/06/21 06:18 BY [facility]OPITAL NOT TO TAKE AGAIN " fentanyl Allergy Anaphylaxis Verified 07/06/21 06:18 Penicillins Allergy Dyspnea Verified 07/06/21 06:18 Tetracyclines Allergy "RUINED Verified 07/06/21 06:18 TEETH" ciprofloxacin [From Cipro] AdvReac Nausea & Verified 07/06/21 06:18 Vomiting & Diarrhea metoprolol AdvReac Nausea & Verified 07/06/21 06:18 Vomiting Physical Exam Vitals: Vital Signs Temp Pulse Resp BP Pulse Ox 07/06/21 07:04 80 16 151/86 97 07/06/21 06:00 80 97 07/06/21 04:00 83 16 121/83 98 07/06/21 02:59 89 16 113/75 94 L 07/06/21 01:55 98.1 F 105 H 22 116/83 97 Intake and Output 07/05/21 07/06/21 07/06/21 22:59 06:59 14:59 Other: Weight 92.533 kg Results 07/06/21 07:30 07/06/21 07:30 Cardiac Enzymes 07/06/21 07/06/21 07/06/21 Range/Units 02:20 02:20 04:33 AST 20 (14-36) U/L Troponin I <0.012 <0.012 (0.000-0.034) ng/mL Coagulation 07/06/21 Range/Units 02:20 PT 10.4 (9.0-12.0) sec APTT 25.2 (22.0-30.0) sec CBC 07/06/21 Range/Units 02:20 WBC 12.6 H (3.8-10.6) k/uL RBC 4.88 (3.80-5.40) m/uL Hgb 15.3 (11.4-16.0) gm/dL Hct 46.6 H (34.0-46.0) % Plt Count 375 (150-450) k/uL Comprehensive Metabolic Panel 07/06/21 Range/Units 02:20 Sodium 141 (137-145) mmol/L Potassium 3.6 (3.5-5.1) mmol/L Chloride 107 (98-107) mmol/L Carbon Dioxide 24 (22-30) mmol/L BUN 6 L (7-17) mg/dL Creatinine 0.87 (0.52-1.04) mg/dL Glucose 136 H (74-99) mg/dL Calcium 10.1 (8.4-10.2) mg/dL AST 20 (14-36) U/L ALT 13 (4-34) U/L Alkaline Phosphatase 97 (38-126) U/L Total Protein 6.2 L (6.3-8.2) g/dL Albumin 3.8 (3.5-5.0) g/dL Current Medications Generic Name Dose Route Start Last Admin Trade Name Freq PRN Reason Stop Dose Admin Aspirin 325 mg 07/07/21 09:00 Aspirin 325 Mg Tab PO DAILY ANITA Famotidine 20 mg 07/06/21 09:00 Famotidine 20 Mg/2 Ml Vial IV Q12HR ANITA Heparin Sodium (Porcine) 5,000 unit 07/06/21 09:00 Heparin Sodium,Porcine/Pf 5,000 Unit/0.5 Ml Syringe SQ Q12HR ANITA Sodium Chloride 1,000 mls @ 75 mls/hr 07/06/21 07:00 Saline 0.9% IV .[id number] ANITA Nitroglycerin 0.4 mg 07/06/21 03:51 Nitroglycerin Sl Tabs 0.4 Mg Tab SUBLINGUAL Q5M PRN Chest Pain Intake and Output 07/05/21 07/06/21 07/06/21 22:59 06:59 14:59 Other: Weight 92.533 kg 07/06/21 02:20 07/06/21 02:20
--- NOTE | 2021-07-06 10:34 | US ---
EXAMINATION TYPE: US abdomen limited DATE OF EXAM: 07/06/2021 COMPARISON: CT 01/18/2020 CLINICAL HISTORY: 51-year-old female RUQ and epigastric pain x 1 day, nausea TECHNIQUE: Multiple sonographic images of the right upper quadrant are obtained. FINDINGS: EXAM MEASUREMENTS: Liver Length: 15.2 cm Gallbladder Wall: 6 mm CBD: 5.6 mm Right Kidney: 9.1 x 4.2 x 4.3 cm Pancreas: Suboptimal visualization of the pancreatic tail due to shadowing from bowel gas. Visualize d portions show no gross abnormality. Liver: Overall homogeneous appearance. No focal lesion seen. Gallbladder: no stones seen. The wall appears thickened at 6 mm with some apparent mild pericholecys tic fluid. Evidence for sonographic King's sign: yes CBD: Upper limits of normal. Right Kidney: No hydronephrosis. IMPRESSION: Gallbladder wall thickening with some pericholecystic fluid. Given the positive sonographic King si gn, correlate for acute cholecystitis. If no intervention at this time and further imaging evaluation is desired, HIDA scan can be performed.
--- NOTE | 2021-07-06 13:09 | P.GSCN ---
History of Present Illness Consult date: 07/06/21 History of present illness: CHIEF COMPLAINT: Epigastric abdominal pain, chest pain and back pain HISTORY OF PRESENT ILLNESS: This is a 51-year-old female with a known history of coronary artery disease with cardiac stent, myocardial infarction, nicotine dependence, hyperlipidemia, constipation, hypotension, posttraumatic stress disorder and anxiety. Patient presents to the hospital with complaints of epigastric pain, chest pain and pain that radiates into the upper back. She has been having nausea and episodes of sweating. Her pain is worse after eating. Patient reports that the symptoms have been ongoing for about the last 3 days. She had severe pain starting around 9:30 last night that would not alleviate. Patient had similar symptoms last week that did resolve. Patient reports that she has been dealing with epigastric pain for a while now and contributed to her anxiety. She had a CTA of the chest that showed no evidence of PE . Possible pericholecystic fluid and gallbladder wall thickening noted. Surgical consult was placed regarding patient's epigastric pain. Patient denies any fever. Denies any change in bowel habits. Patient was seen evaluated by cardiology in regards to chest pain. They ruled out any acute coronary syndrome. Troponins were negative. She did have a slightly elevated d-dimer and a venous Doppler was also ordered which was negative for DVT. PAST MEDICAL HISTORY: See list. PAST SURGICAL HISTORY: See list. MEDICATIONS: See list. ALLERGIES: See list. SOCIAL HISTORY: No illicit drug use. REVIEW OF SYSTEMS: CONSTITUTIONAL: Denies fever or chills. HEENT: Denies blurred vision, vision changes, or eye pain. Denies hemoptysis CARDIOVASCULAR: Denies chest pain or pressure. RESPIRATORY: No shortness of breath. GASTROINTESTINAL: See HPI for pertinent findings HEMATOLOGIC: Denies bleeding disorders. GENITOURINARY: Denies any blood in urine or increased urinary frequency. SKIN: Denies pruitis. Denies rash. PHYSICAL EXAM: VITAL SIGNS: Reviewed GENERAL: Well-developed in no acute distress. HEENT: No sclera icterus. Extraocular movements grossly intact. Moist buccal mucosa. Head is atraumatic, normocephalic. No nasal drainage. ABDOMEN: Soft. Nondistended. Epigastric tenderness and tenderness in the right upper quadrant with palpation NEUROLOGIC: Alert and oriented. Cranial nerves II through XII grossly intact. LABORATORY DATA: WBC 12.6 down to 11.1 hemoglobin 14.6 platelets 377 d-dimer 0.91 Sodium 140 potassium 3.8 creatinine 0.90 Magnesium 1.9 Troponins negative 3 sets LFT is normal lipase 98 amylase 58 IMAGING: Abdominal ultrasound showed gallbladder wall thickening with some pericholecystic fluid. Positive sonographic King sign correlate for acute cholecystitis. ASSESSMENT: 1. Acute cholecystitis with Epigastric and right upper quadrant abdominal pain. Abdominal ultrasound showing gallbladder wall thickening with pericholecystic fluid and positive King sign. PLAN: -Patient scheduled for laparoscopic cholecystectomy on 07/09/[address] Choi -Antibiotic per ID. Due to patient's antibiotic ALLERGIES medicine service has consulted infectious disease -Start clear liquid diet -Continue IV fluids -Continue pain medication as needed -Continue antiemetics as needed -GI prophylaxis Pepcid and DVT prophylaxis subcu heparin Physician Punchboard Assembler note has been reviewed by physician. Signing provider agrees with the documented findings, assessment, and plan of care. Past Medical History Past Medical History: Coronary Artery Disease (CAD), GERD/Reflux, Myocardial Infarction ([place]) Additional Past Medical History / Comment(s): Hyperlipidemia, Hypotension, constipation Last Myocardial Infarction Date:: 03/25/18 History of Any Multi-Drug Resistant Organisms: None Reported Past Surgical History: Heart Catheterization With Stent, Hysterectomy, Tonsillectomy Additional Past Surgical History / Comment(s): EYE SURGERY Past Anesthesia/Blood Transfusion Reactions: No Reported Reaction Date of Last Stent Placement:: 03/25/18 Past Psychological History: Anxiety, Panic Disorder, PTSD Smoking Status: Current every day smoker Past Alcohol Use History: None Reported Past Drug Use History: None Reported - Past Family History Mother Family Medical History: Coronary Artery Disease (CAD) Father Family Medical History: Coronary Artery Disease (CAD) Medications and Allergies Home Medications Medication Instructions Recorded Confirmed Type Omeprazole 20 mg PO DAILY 03/25/18 07/06/21 History ALPRAZolam [Xanax] 0.5 - 1 mg PO TID PRN 02/11/19 07/06/21 History Aspirin EC [Ecotrin Low Dose] 81 mg PO DAILY 02/11/19 07/06/21 History hydrOXYzine pamoate [hydrOXYzine 25 mg PO Q6H PRN 11/20/20 07/06/21 History PAMOATE] Nitroglycerin Sl Tabs [Nitrostat] 0.4 mg SUBLINGUAL Q5M PRN 12/01/20 07/06/21 History Prazosin HCl 1 mg PO HS 12/01/20 07/06/21 History Acetaminophen-Codeine 300-30mg 1 tab PO Q6H PRN 07/06/21 07/06/21 History [Tylenol w/codeine #3] Erythromycin Ophth Oint [Romycin 1 applic RIGHT EYE BID 07/06/21 07/06/21 History Ophth Oint] Ondansetron Odt [Zofran Odt] 4 mg PO Q12HR PRN 07/06/21 07/06/21 History Allergies Allergy/AdvReac Type Severity Reaction Status Date / Time dopamine Allergy "WAS TOLD Verified 07/06/21 06:18 BY [facility] NOT TO TAKE AGAIN " fentanyl Allergy Anaphylaxis Verified 07/06/21 06:18 Penicillins Allergy Dyspnea Verified 07/06/21 06:18 Tetracyclines Allergy "RUINED Verified 07/06/21 06:18 TEETH" ciprofloxacin [From Cipro] AdvReac Nausea & Verified 07/06/21 06:18 Vomiting & Diarrhea metoprolol AdvReac Nausea & Verified 07/06/21 06:18 Vomiting Surgical - Exam Vital Signs Temp Pulse Resp BP Pulse Ox 98.1 F 105 H 22 116/83 97 07/06/21 01:55 07/06/21 01:55 07/06/21 01:55 07/06/21 01:55 07/06/21 01:55 Results - Labs 07/06/21 07:30 07/06/21 07:30 Abnormal Lab Results - Last 24 Hours (Table) 07/06/21 07/06/21 07/06/21 Range/Units 02:20 02:20 02:20 WBC 12.6 H (3.8-10.6) k/uL Hct 46.6 H (34.0-46.0) % Lymphocytes # 5.0 H (1.0-4.8) k/uL D-Dimer 0.91 H (<0.60) mg/L FEU BUN 6 L (7-17) mg/dL Glucose 136 H (74-99) mg/dL Total Protein 6.2 L (6.3-8.2) g/dL 07/06/21 07/06/21 Range/Units 07:30 07:30 WBC 11.1 H (3.8-10.6) k/uL Hct (34.0-46.0) % Lymphocytes # (1.0-4.8) k/uL D-Dimer (<0.60) mg/L FEU BUN 6 L (7-17) mg/dL Glucose 116 H (74-99) mg/dL Total Protein 5.8 L (6.3-8.2) g/dL Diabetes panel 07/06/21 07/06/21 Range/Units 02:20 07:30 Sodium 141 140 (137-145) mmol/L Potassium 3.6 3.8 (3.5-5.1) mmol/L Chloride 107 105 (98-107) mmol/L Carbon Dioxide 24 26 (22-30) mmol/L BUN 6 L 6 L (7-17) mg/dL Creatinine 0.87 0.90 (0.52-1.04) mg/dL Glucose 136 H 116 H (74-99) mg/dL Calcium 10.1 9.8 (8.4-10.2) mg/dL AST 20 19 (14-36) U/L ALT 13 13 (4-34) U/L Alkaline Phosphatase 97 90 (38-126) U/L Total Protein 6.2 L 5.8 L (6.3-8.2) g/dL Albumin 3.8 3.5 (3.5-5.0) g/dL Calcium panel 07/06/21 07/06/21 Range/Units 02:20 07:30 Calcium 10.1 9.8 (8.4-10.2) mg/dL Albumin 3.8 3.5 (3.5-5.0) g/dL Pituitary panel 07/06/21 07/06/21 Range/Units 02:20 07:30 Sodium 141 140 (137-145) mmol/L Potassium 3.6 3.8 (3.5-5.1) mmol/L Chloride 107 105 (98-107) mmol/L Carbon Dioxide 24 26 (22-30) mmol/L BUN 6 L 6 L (7-17) mg/dL Creatinine 0.87 0.90 (0.52-1.04) mg/dL Glucose 136 H 116 H (74-99) mg/dL Calcium 10.1 9.8 (8.4-10.2) mg/dL Adrenal panel 07/06/21 07/06/21 Range/Units 02:20 07:30 Sodium 141 140 (137-145) mmol/L Potassium 3.6 3.8 (3.5-5.1) mmol/L Chloride 107 105 (98-107) mmol/L Carbon Dioxide 24 26 (22-30) mmol/L BUN 6 L 6 L (7-17) mg/dL Creatinine 0.87 0.90 (0.52-1.04) mg/dL Glucose 136 H 116 H (74-99) mg/dL Calcium 10.1 9.8 (8.4-10.2) mg/dL Total Bilirubin 0.3 0.3 (0.2-1.3) mg/dL AST 20 19 (14-36) U/L ALT 13 13 (4-34) U/L Alkaline Phosphatase 97 90 (38-126) U/L Total Protein 6.2 L 5.8 L (6.3-8.2) g/dL Albumin 3.8 3.5 (3.5-5.0) g/dL
[2021-07-06] MEDS: ALPRAZolam 0.25 MG TAB PO PRN ×2 (16:03→21:11)
--- NOTE | 2021-07-06 23:55 | P.CONS ---
History of Present Illness - Reason for Consult Consult date: 07/06/21 Multiple antibiotic ALLERGIES Requesting physician: Olive Hernandez - Chief Complaint Right upper quadrant and chest pain x one day - History of Present Illness Patient is a 51-year female presenting to the ER after midnight for evaluation of sudden onset of epigastric and chest pain that woke her up from the sleep patient mention he started having some pain to the epigastric right upper quadrant area after the dinner which slowly eased off and she went to sle ep however subsequently the patient woke up with significant sharp pain intensity almost 10 out of 10 in severity with associated nausea but no vomiting denies any diarrhea or constipation did have shortness of breath with the symptoms the patient presented to hospital on arrival to the ER the patient was afebrile patient was not hypoxic or need for supplemental oxygen therapy patient did have white count of 12.6 with a left shift kidney function was normal liver enzymes are normal patient did have a CT angiogram of the chest that was negative for PE mild interstitial density and atelectasis at the lung base however there was concern for possible pericholecystic fluid and gallbladder wall thickening which was confirmed on the ultrasound patient did have multiple antibiotic allergies ID was consulted for further management of antibiotics, patient describing her penicillin allergy as throat swelling however the patient has taken Keflex without any problem Review of Systems CONSTITUTIONAL: Positive for weakness. Chills denies high-grade Fever EYES: No complaint. ENT:No complaint. RESPIRATORY: No complaint. CARDIOVASCULAR: As per history of present illness GENITOURINARY: No complaint. GASTROINTESTINAL: As per history of present illness MUSCULOSKELETAL: No complaint. INTEGUMENTARY: No complaint. PSYCHOLOGICAL: No complaint. ENDOCRINE: No complaint. NEUROLOGIC: No complaint. Past Medical History Past Medical History: Coronary Artery Disease (CAD), GERD/Reflux, Myocardial Infarction ([place]) Additional Past Medical History / Comment(s): Hyperlipidemia, Hypotension, constipation Last Myocardial Infarction Date:: 03/25/18 History of Any Multi-Drug Resistant Organisms: None Reported Past Surgical History: Heart Catheterization With Stent, Hysterectomy, Tonsillectomy Additional Past Surgical History / Comment(s): EYE SURGERY Past Anesthesia/Blood Transfusion Reactions: No Reported Reaction Date of Last Stent Placement:: 03/25/18 Past Psychological History: Anxiety, Panic Disorder, PTSD Smoking Status: Current every day smoker Past Alcohol Use History: None Reported Past Drug Use History: None Reported - Past Family History Mother Family Medical History: Coronary Artery Disease (CAD) Father Family Medical History: Coronary Artery Disease (CAD) Medications and Allergies Home Medications Medication Instructions Recorded Confirmed Type Omeprazole 20 mg PO DAILY 03/25/18 07/06/21 History ALPRAZolam [Xanax] 0.5 - 1 mg PO TID PRN 02/11/19 07/06/21 History Aspirin EC [Ecotrin Low Dose] 81 mg PO DAILY 02/11/19 07/06/21 History hydrOXYzine pamoate [hydrOXYzine 25 mg PO Q6H PRN 11/20/20 07/06/21 History PAMOATE] Nitroglycerin Sl Tabs [Nitrostat] 0.4 mg SUBLINGUAL Q5M PRN 12/01/20 07/06/21 History Prazosin HCl 1 mg PO HS 12/01/20 07/06/21 History Acetaminophen-Codeine 300-30mg 1 tab PO Q6H PRN 07/06/21 07/06/21 History [Tylenol w/codeine #3] Erythromycin Ophth Oint [Romycin 1 applic RIGHT EYE BID 07/06/21 07/06/21 History Ophth Oint] Ondansetron Odt [Zofran Odt] 4 mg PO Q12HR PRN 07/06/21 07/06/21 History Allergies Allergy/AdvReac Type Severity Reaction Status Date / Time dopamine Allergy "WAS TOLD Verified 07/06/21 06:18 BY [facility] NOT TO TAKE AGAIN " fentanyl Allergy Anaphylaxis Verified 07/06/21 06:18 Penicillins Allergy Dyspnea Verified 07/06/21 06:18 Tetracyclines Allergy "RUINED Verified 07/06/21 06:18 TEETH" ciprofloxacin [From Cipro] AdvReac Nausea & Verified 07/06/21 06:18 Vomiting & Diarrhea metoprolol AdvReac Nausea & Verified 07/06/21 06:18 Vomiting Physical Exam Vitals: Vital Signs Temp Pulse Pulse Resp BP BP Pulse Ox 07/06/21 08:00 85 16 07/06/21 07:55 97.4 F L 85 16 127/85 92 L 07/06/21 07:04 80 16 151/86 97 07/06/21 06:00 80 97 07/06/21 04:00 83 16 121/83 98 07/06/21 02:59 89 16 113/75 94 L 07/06/21 01:55 98.1 F 105 H 22 116/83 97 Intake and Output 07/05/21 07/06/21 07/06/21 22:59 06:59 14:59 Other: Voiding Method Toilet Weight 92.533 kg GENERAL DESCRIPTION: Middle-aged male lying in bed, no distress. No tachypnea or accessory muscle of respiration use. HEENT: Shows Pallor , no scleral icterus. Oral mucous membrane is dry. No pharyngeal erythema or thrush NECK: Trachea central, no thyromegaly. LUNGS: Unlabored breathing. Clear to auscultation anteriorly. No wheeze or crackle. HEART: S1, S2, regular rate and rhythm. No loud murmur ABDOMEN: Soft, right upper quadrant tenderness , no guarding or rigidity, no organomegaly EXTREMITIES: No edema of feet. SKIN: No rash, no masses palpable. NEUROLOGICAL: The patient is awake, alert, oriented x3, mood and affect normal. Results CBC & Chem 7: 07/06/21 07:30 07/06/21 07:30 Labs: Abnormal Lab Results - Last 24 Hours (Table) 07/06/21 07/06/21 07/06/21 Range/Units 02:20 02:20 02:20 WBC 12.6 H (3.8-10.6) k/uL Hct 46.6 H (34.0-46.0) % Lymphocytes # 5.0 H (1.0-4.8) k/uL D-Dimer 0.91 H (<0.60) mg/L FEU BUN 6 L (7-17) mg/dL Glucose 136 H (74-99) mg/dL Total Protein 6.2 L (6.3-8.2) g/dL 07/06/21 07/06/21 Range/Units 07:30 07:30 WBC 11.1 H (3.8-10.6) k/uL Hct (34.0-46.0) % Lymphocytes # (1.0-4.8) k/uL D-Dimer (<0.60) mg/L FEU BUN 6 L (7-17) mg/dL Glucose 116 H (74-99) mg/dL Total Protein 5.8 L (6.3-8.2) g/dL Assessment and Plan Assessment: 1-patient presented to hospital with epigastric and chest pain likely secondary to acute cholecystitis in this patient who did have abnormality of the gallbladder both on the CT and ultrasound and the patient is tender in the right upper quadrant area with the report for the gram-negative to be the likely pathogen 2-patient with multiple antibiotic allergies that would limit the number of antibiotics safe to use (1) Cholecystitis Current Visit: Yes Status: Acute Code(s): K81.9 - CHOLECYSTITIS, UNSPECIFIED SNOMED Code(s): 65606961 (2) Allergy to multiple antibiotics Current Visit: Yes Status: Acute Code(s): Z88.1 - ALLERGY STATUS TO OTHER ANTIBIOTIC AGENTS SNOMED Code(s): 187659987 Plan: 1-we will obtain blood cultures CRP 2-start the patient on Rocephin 2 g daily 3-surgical team is on the case and possible cholecystectomy We will follow on clinical condition and cultures to further adjust medication if needed Thank you for this consultation we will follow the patient along with you Time with Patient: Greater than 30
[2021-07-07 07:39] VITALS: BP 122/80; PULSE 81; RESP 18; TEMP 98.2
[2021-07-07] MEDS: ERYTHROMYCIN 5 MG/GM OPHTH OINT 3.5 GM TUBE RIGHT EYE SCH (07:50)
[2021-07-07] MEDS: ALPRAZolam 0.25 MG TAB PO PRN (07:50)
[2021-07-07] MEDS: SODIUM CHLORIDE 0.9% 1,000 ML IV SCH (07:53)
[2021-07-07] MEDS: HEPARIN SODIUM,PORCINE/PF 5,000 UNIT/0.5 ML SYRINGE SQ SCH (07:53)
[2021-07-07] MEDS: FAMOTIDINE 20 MG/2 ML VIAL IV SCH (07:53)
[2021-07-07 08:56] LABS: Basophils # (A) 0.03 X 10*3/uL (0.00-0.10); Basophils % (A) 0.4 %; Eosinophils # (A) 0.13 X 10*3/uL (0.04-0.35); Eosinophils % (A) 1.5 %; HCT 40.9 % (37.2-46.3); HGB 13.3 g/dL (12.0-15.0); Lymphocytes # (A) 3.29 X 10*3/uL (0.90-5.00); Lymphocytes % (A) 38.4 %; MCHC 32.5 g/dL (32.0-37.0); MCV 95.3 fL (80.0-97.0); Mean Platelet Volume 9.5 fL (9.5-12.2); Monocytes # (A) 0.46 X 10*3/uL (0.20-1.00); Monocytes % (A) 5.4 %; Neutrophils # (A) 4.62 X 10*3/uL (1.80-7.70); Neutrophils % (A) 53.9 %; Platelet Count 344 X 10*3/uL (140-440); RBC 4.29 X 10*6/uL (4.10-5.20); RDW 12.9 % (11.5-14.5); WBC 8.56 X 10*3/uL (4.50-10.00)
[2021-07-07] MEDS ORDERED: ASPIRIN 325 MG TAB PO SCH (09:00)
[2021-07-07] MEDS ORDERED: ASPIRIN 81 MG PO SCH (09:00)
[2021-07-07 15:26] LABS: Chol/HDL Ratio 7.67; LDL Cholesterol,Calculated 147.4 mg/dL (0.0-131.0); VLDL Calculation 52.6 mg/dL (5.00-40.00)
--- NOTE | 2021-07-07 21:08 | P.DS ---
Providers Date of admission: 07/06/21 03:52 Attending physician: Luis Heck Consults: 07/06/21 03:51 Consult Physician Routine Consulting Provider: Osbaldo Nicholas Consult Reason/Comments: chest pain Do you want consulting provider notified?: Yes 07/06/21 04:03 Consult Physician Routine Consulting Provider: Carmelo Choi Consult Reason/Comments: epigastric pain Do you want consulting provider notified?: Yes 07/06/21 10:19 Consult Physician Urgent Consulting Provider: Kojo Hernandez Consult Reason/Comments: mult drug allergies requiring abx Do you want consulting provider notified?: Yes Primary care physician: Nomi Hood Hospital Course: Patient was not discharged but left AMA Diagnoses: Chest pain. Negative CTPA for PE. Rule out cardiac causes. 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 She sees Dr. 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 While form building supervisor is Dr. Lipscomb She presents with chest pain which is thought most likely related to epigastric pain and gallbladder disease. Ultrasound showing thick wall of the gallbladder suspicious for acute cholecystitis patient has been evaluated by surgery team for planned for cholecystectomy. Antibiotics were started by infectious disease team However one week and this morning to see the patient she was already left overnight by signing AMA, with the risks and benefits are explained to her by staff Based upon my evaluation earlier patient has capacity to make medical decision As per staff patient does not want to wait for cholecystectomy to be done on Friday and she wanted to smoke cigarettes Patient left the hospital before I have a chance to see or talk to the patient Plan - Discharge Summary Discharge Rx Participant: Yes New Discharge Prescriptions: No Action Omeprazole 20 mg PO DAILY Aspirin EC [Ecotrin Low Dose] 81 mg PO DAILY ALPRAZolam [Xanax] 0.5 - 1 mg PO TID PRN PRN Reason: Anxiety hydrOXYzine pamoate [hydrOXYzine PAMOATE] 25 mg PO Q6H PRN PRN Reason: WITH XANAX NEEDED Nitroglycerin Sl Tabs [Nitrostat] 0.4 mg SUBLINGUAL Q5M PRN PRN Reason: Chest Pain Prazosin HCl 1 mg PO HS Ondansetron Odt [Zofran Odt] 4 mg PO Q12HR PRN PRN Reason: Nausea Erythromycin Ophth Oint [Romycin Ophth Oint] 1 applic RIGHT EYE BID Acetaminophen-Codeine 300-30mg [Tylenol w/codeine #3] 1 tab PO Q6H PRN PRN Reason: Pain Discharge Medication List Omeprazole 20 mg PO DAILY 03/25/18 [History] ALPRAZolam [Xanax] 0.5 - 1 mg PO TID PRN 02/11/19 [History] Aspirin EC [Ecotrin Low Dose] 81 mg PO DAILY 02/11/19 [History] hydrOXYzine pamoate [hydrOXYzine PAMOATE] 25 mg PO Q6H PRN 11/20/20 [History] Nitroglycerin Sl Tabs [Nitrostat] 0.4 mg SUBLINGUAL Q5M PRN 12/01/20 [History] Prazosin HCl 1 mg PO HS 12/01/20 [History] Acetaminophen-Codeine 300-30mg [Tylenol w/codeine #3] 1 tab PO Q6H PRN 07/06/21 [History] Erythromycin Ophth Oint [Romycin Ophth Oint] 1 applic RIGHT EYE BID 07/06/21 [History] Ondansetron Odt [Zofran Odt] 4 mg PO Q12HR PRN 07/06/21 [History] Follow up Appointment(s)/Referral(s): Osbaldo Nicholas MD [STAFF PHYSICIAN] - 2 Weeks Nomi Hood III, MD [Primary Care Provider] - 1-2 days Discharge Disposition: Left Against Medical Advice
== END 2021-07-07 09:55 | disposition left against medical advice (07) ==
LOC: EC 01:53 → 6NMEDSUR 03:52
PROVIDERS: ADMIT Hospitalist; ATTEND Hospitalist
DX: R07.89 Other chest pain (principal); R10.13 Epigastric pain; R79.89 Other specified abnormal findings of blood chemistry; K81.0 Acute cholecystitis; I25.10 Atherosclerotic heart disease of native coronary artery without angina pectoris; I10 Essential (primary) hypertension; I25.2 Old myocardial infarction; R73.9 Hyperglycemia, unspecified; K21.9 Gastro-esophageal reflux disease without esophagitis; E78.5 Hyperlipidemia, unspecified; I95.9 Hypotension, unspecified; K59.00 Constipation, unspecified; F17.210 Nicotine dependence, cigarettes, uncomplicated; H01.9 Unspecified inflammation of eyelid; F41.0 Panic disorder [episodic paroxysmal anxiety]; F43.10 Post-traumatic stress disorder, unspecified; F41.9 Anxiety disorder, unspecified; R19.7 Diarrhea, unspecified; Z79.82 Long term (current) use of aspirin; Z79.899 Other long term (current) drug therapy; Z88.1 Allergy status to other antibiotic agents; Z88.5 Allergy status to narcotic agent; Z88.0 Allergy status to penicillin; Z88.8 Allergy status to other drugs, medicaments and biological substances; Z90.710 Acquired absence of both cervix and uterus; Z95.5 Presence of coronary angioplasty implant and graft; Z85.828 Personal history of other malignant neoplasm of skin; Z98.890 Other specified postprocedural states; Z82.49 Family history of ischemic heart disease and other diseases of the circulatory system
CPT/HCPCS: 96376 ×3; 96365; 96366; 96372; 96375 ×2; 99285; 36415; 93005; 85379; 80061; 80053; 80048; 80076; 82150; 83690; 83735; 84484; 85025 ×2; 85610; 85730; 86140; 87040; 83036; 84145; 71045; 76705; 93970; 71275; G0378 ×2; J2405; J0696 ×2; J1170; Q9967; J1644

== ENCOUNTER 2022-05-12 01:53 | Inpatient (IN) | payer OTHER ==
[2022-05-12 02:01] LABS: Glucose,Whole Blood 105 mg/dL (70-110)
--- NOTE | 2022-05-12 02:28 | ED ---
Neuro HPI - General Chief Complaint: Neuro Symptoms/Deficit Stated Complaint: CVA Time Seen by Provider: 05/12/22 02:00 Source: patient Mode of arrival: EMS Limitations: no limitations - History of Present Illness Is the patient presenting with stroke symptoms?: Yes Last Known Well Date: 05/12/22 Last Known Well Time: 01:20 -: minutes(s) Initial Comments: This patient's 52-year-old woman brought to have evaluation of suspected stroke. Patient at approximately 120 this morning had gone to take her dog for a walk. She noticed that she was having difficult time moving her right arm. EMS was called who state that she did begin to have some improvement in their care. Patient has history of having some possible atypical seizure activity or PTSD ma nifestations. She will be going for EEG for further evaluation. She has had previous episodes of clonus of the mandible and difficulty with speech in relation to that. Location: right face, dysarthria, right arm History of same: Yes Place: home Severity: severe Quality: weak Improves With: time Worsens With: none On Anticoagulants: No Context: sudden onset Associated Symptoms: denies other symptoms Treatments Prior to Arrival: none - Related Data Home Medications: Home Medications Medication Instructions Recorded Confirmed Omeprazole 20 mg PO DAILY 03/25/18 07/06/21 ALPRAZolam [Xanax] 0.5 - 1 mg PO TID PRN 02/11/19 07/06/21 Aspirin EC [Ecotrin Low Dose] 81 mg PO DAILY 02/11/19 07/06/21 hydrOXYzine pamoate [hydrOXYzine 25 mg PO Q6H PRN 11/20/20 07/06/21 PAMOATE] Nitroglycerin Sl Tabs [Nitrostat] 0.4 mg SUBLINGUAL Q5M PRN 12/01/20 07/06/21 Prazosin HCl 1 mg PO HS 12/01/20 07/06/21 Acetaminophen-Codeine 300-30mg 1 tab PO Q6H PRN 07/06/21 07/06/21 [Tylenol w/codeine #3] Erythromycin Ophth Oint [Romycin 1 applic RIGHT EYE BID 07/06/21 07/06/21 Ophth Oint] Ondansetron Odt [Zofran Odt] 4 mg PO Q12HR PRN 07/06/21 07/06/21 Allergies/Adverse Reactions: Allergies Allergy/AdvReac Type Severity Reaction Status Date / Time dopamine Allergy "WAS TOLD Verified 07/06/21 06:18 BY HOPITAL NOT TO TAKE AGAIN " fentanyl Allergy Anaphylaxis Verified 07/06/21 06:18 Penicillins Allergy Dyspnea Verified 07/06/21 06:18 Tetracyclines Allergy "RUINED Verified 07/06/21 06:18 TEETH" ciprofloxacin [From Cipro] AdvReac Nausea & Verified 07/06/21 06:18 Vomiting & Diarrhea metoprolol AdvReac Nausea & Verified 07/06/21 06:18 Vomiting Review of Systems ROS Statement: Those systems with pertinent positive or pertinent negative responses have been documented in the HPI. ROS Other: All systems not noted in ROS Statement are negative. General Exam Limitations: no limitations General appearance: alert, in no apparent distress Head exam: Present: atraumatic, normocephalic Eye exam: Present: normal appearance, PERRL, EOMI. Absent: scleral icterus, conjunctival injection ENT exam: Present: normal oropharynx Neck exam: Present: normal inspection, full ROM. Absent: tenderness Respiratory exam: Present: normal lung sounds bilaterally. Absent: respiratory distress, wheezes, rales, rhonchi, stridor, accessory muscle use Cardiovascular Exam: Present: regular rate, normal rhythm, normal heart sounds. Absent: systolic murmur, diastolic murmur, rubs, gallop GI/Abdominal exam: Present: soft. Absent: distended, tenderness, guarding, rebound, rigid, mass Extremities exam: Present: normal inspection, normal capillary refill. Absent: pedal edema, calf tenderness Back exam: Present: normal inspection. Absent: CVA tenderness (R), CVA tenderness (L) Neurological exam: Present: alert, oriented X3, CN II-XII intact Expanded Neurological exam: Present: protecting the airway. Absent: inattentive, memory loss-remote event, memory loss-recent event, ataxia, receptive aphasia, expressive aphasia, total aphasia, tremor Patient oriented to: Present: person, place, time Speech: Present: fluid speech Cranial nerves: EOM's Intact: Normal, Gag Reflex: Normal, Tongue Deviation: Normal, Nystagmus: Normal, Facial Sensation: Normal Sensory exam: Upper Extremity Light Touch: Normal, Lower Extremity Light Touch: Normal Motor strength exam: RUE: 5, LUE: 5, RLE: 5, LLE: 5 DTR: Patellar (R): 2+, Patellar (L): 2+ Eye Response: (4) open spontaneously Motor Response: (6) obeys commands Verbal Response: (5) oriented Skin exam: Present: warm, dry, intact, normal color. Absent: rash Stroke MDM - Lab Data Result diagrams: 05/12/22 01:59 05/12/22 01:59 Lab Results 05/12/22 05/12/22 05/12/22 Range/Units 01:59 01:59 01:59 WBC 13.4 H (3.8-10.6) k/uL RBC 4.52 (3.80-5.40) m/uL Hgb 13.6 (11.4-16.0) gm/dL Hct 41.2 (34.0-46.0) % MCV 91.1 (80.0-100.0) fL MCH 30.1 (25.0-35.0) pg MCHC 33.0 (31.0-37.0) g/dL RDW 12.9 (11.5-15.5) % Plt Count 336 (150-450) k/uL MPV 6.8 Neutrophils % 53 % Lymphocytes % 38 % Monocytes % 5 % Eosinophils % 2 % Basophils % 1 % Neutrophils # 7.0 (1.3-7.7) k/uL Lymphocytes # 5.1 H (1.0-4.8) k/uL Monocytes # 0.7 (0-1.0) k/uL Eosinophils # 0.2 (0-0.7) k/uL Basophils # 0.1 (0-0.2) k/uL Manual Slide Review Performed PT 10.5 (9.0-12.0) sec INR 1.0 (<1.2) APTT 25.6 (22.0-30.0) sec Sodium 133 L (137-145) mmol/L Potassium 4.4 (3.5-5.1) mmol/L Chloride 104 (98-107) mmol/L Carbon Dioxide 27 (22-30) mmol/L Anion Gap 2 mmol/L BUN 8 (7-17) mg/dL Creatinine 1.19 H (0.52-1.04) mg/dL Est GFR (CKD-EPI)AfAm 61 (>60 ml/min/1.73 sqM) Est GFR (CKD-EPI)NonAf 53 (>60 ml/min/1.73 sqM) Glucose 95 (74-99) mg/dL POC Glucose (mg/dL) (70-110) mg/dL POC Glu Control Clerk Head ID Calcium 8.6 (8.4-10.2) mg/dL Total Bilirubin 0.6 (0.2-1.3) mg/dL AST 33 (14-36) U/L ALT 19 (4-34) U/L Alkaline Phosphatase 68 (38-126) U/L Troponin I (0.000-0.034) ng/mL Total Protein 5.5 L (6.3-8.2) g/dL Albumin 3.3 L (3.5-5.0) g/dL Urine Color Urine Appearance (Clear) Urine pH (5.0-8.0) Ur Specific [place] (1.001-1.035) Urine Protein (Negative) Urine Glucose (UA) (Negative) Urine Ketones (Negative) Urine Blood (Negative) Urine Nitrite (Negative) Urine Bilirubin (Negative) Urine Urobilinogen (<2.0) mg/dL Ur Leukocyte Esterase (Negative) 05/12/22 05/12/22 05/12/22 Range/Units 01:59 01:59 03:01 WBC (3.8-10.6) k/uL RBC (3.80-5.40) m/uL Hgb (11.4-16.0) gm/dL Hct (34.0-46.0) % MCV (80.0-100.0) fL MCH (25.0-35.0) pg MCHC (31.0-37.0) g/dL RDW (11.5-15.5) % Plt Count (150-450) k/uL MPV Neutrophils % % Lymphocytes % % Monocytes % % Eosinophils % % Basophils % % Neutrophils # (1.3-7.7) k/uL Lymphocytes # (1.0-4.8) k/uL Monocytes # (0-1.0) k/uL Eosinophils # (0-0.7) k/uL Basophils # (0-0.2) k/uL Manual Slide Review PT (9.0-12.0) sec INR (<1.2) APTT (22.0-30.0) sec Sodium (137-145) mmol/L Potassium (3.5-5.1) mmol/L Chloride (98-107) mmol/L Carbon Dioxide (22-30) mmol/L Anion Gap mmol/L BUN (7-17) mg/dL Creatinine (0.52-1.04) mg/dL Est GFR (CKD-EPI)AfAm (>60 ml/min/1.73 sqM) Est GFR (CKD-EPI)NonAf (>60 ml/min/1.73 sqM) Glucose (74-99) mg/dL POC Glucose (mg/dL) 105 (70-110) mg/dL POC Glu Control Clerk Head ID Salvador Mccall Calcium (8.4-10.2) mg/dL Total Bilirubin (0.2-1.3) mg/dL AST (14-36) U/L ALT (4-34) U/L Alkaline Phosphatase (38-126) U/L Troponin I <0.012 (0.000-0.034) ng/mL Total Protein (6.3-8.2) g/dL Albumin (3.5-5.0) g/dL Urine Color Light Yellow Urine Appearance Clear (Clear) Urine pH 6.5 (5.0-8.0) Ur Specific [place] 1.041 H (1.001-1.035) Urine Protein Negative (Negative) Urine Glucose (UA) Negative (Negative) Urine Ketones Negative (Negative) Urine Blood Negative (Negative) Urine Nitrite Negative (Negative) Urine Bilirubin Negative (Negative) Urine Urobilinogen <2.0 (<2.0) mg/dL Ur Leukocyte Esterase Negative (Negative) - Medical Decision Making This patient is 52-year-old woman brought to have evaluation for right upper extremity and facial weakness and difficulty with speech. She is triaged directly to computed tomography scan. The case is discussed with the stroke team. The patient has had resolution of the right upper extremity symptoms and facial symptoms at a time I had evaluated her. Patient will be admitted with neurology consultation. - EKG Data -: EKG Interpreted by Me EKG shows normal: sinus rhythm, axis (Normal), intervals (Normal), QRS complexes (Low voltage), ST-T waves (Normal) Rate: normal (Rate 80 bpm) Past Medical History Past Medical History: Coronary Artery Disease (CAD), GERD/Reflux, Myocardial Infarction ([place]) Additional Past Medical History / Comment(s): Hyperlipidemia, Hypotension, constipation Last Myocardial Infarction Date:: 03/25/18 History of Any Multi-Drug Resistant Organisms: None Reported Past Surgical History: Heart Catheterization With Stent, Hysterectomy, Tonsillectomy Additional Past Surgical History / Comment(s): EYE SURGERY Past Anesthesia/Blood Transfusion Reactions: No Reported Reaction Date of Last Stent Placement:: 03/25/18 Past Psychological History: Anxiety, Panic Disorder, PTSD Smoking Status: Current every day smoker Past Alcohol Use History: None Reported Past Drug Use History: None Reported - Past Family History Mother Family Medical History: Coronary Artery Disease (CAD) Father Family Medical History: Coronary Artery Disease (CAD) Course Vital Signs 05/12/22 05/12/22 05/12/22 01:54 02:15 02:30 Temperature 97.4 F L Pulse Rate 79 76 73 Respiratory 24 22 20 Rate Blood Pressure 143/91 147/90 148/90 O2 Sat by Pulse 99 97 97 Oximetry 05/12/22 05/12/22 05/12/22 02:45 03:00 03:15 Temperature Pulse Rate 72 73 70 Respiratory 20 20 20 Rate Blood Pressure 129/87 118/74 113/85 O2 Sat by Pulse 97 96 97 Oximetry 05/12/22 05/12/22 05/12/22 03:30 03:45 04:15 Temperature Pulse Rate 69 60 71 Respiratory 20 20 20 Rate Blood Pressure 116/86 117/72 111/75 O2 Sat by Pulse 96 98 98 Oximetry 05/12/22 05/12/22 05/12/22 04:30 04:45 05:00 Temperature Pulse Rate 64 62 57 L Respiratory 22 20 20 Rate Blood Pressure 118/74 122/85 118/74 O2 Sat by Pulse 98 98 97 Oximetry - Reevaluation(s) Reevaluation #1: 05/12/22 02:26 Had discussion of case with Dr. Resendiz who states that patient is a TPA carmen date based on the onset and the computed tomography scan. I then discussed indications, risks and benefits with the patient who at this point is declining TPA based on the risk. Critical Care Time Critical Care Time: Yes (35 minutes) Disposition Clinical Impression: Right arm weakness Disposition: ADMITTED IP TO THIS [facility] Condition: Fair Is patient prescribed a controlled substance at d/c from ED?: No
[2022-05-12 02:30] LABS: Basophils # (A) 0.1 k/uL (0-0.2); Basophils % (A) 1 %; Eosinophils # (A) 0.2 k/uL (0-0.7); Eosinophils % (A) 2 %; HCT 41.2 % (34.0-46.0); HGB 13.6 gm/dL (11.4-16.0); Lymphocytes # (A) 5.1 k/uL (1.0-4.8); Lymphocytes % (A) 38 %; MCH 30.1 pg (25.0-35.0); MCV 91.1 fL (80.0-100.0); Mean Platelet Volume 6.8; Monocytes # (A) 0.7 k/uL (0-1.0); Monocytes % (A) 5 %; Neutrophils % (A) 53 %; Platelet Count 336 k/uL (150-450); RBC 4.52 m/uL (3.80-5.40); RDW 12.9 % (11.5-15.5); WBC 13.4 k/uL (3.8-10.6)
--- NOTE | 2022-05-12 02:37 | CT ---
EXAM: CT Head Without Intravenous Contrast CLINICAL HISTORY: : stroke TECHNIQUE: Axial computed tomography images of the head/brain without intravenous contrast. CTDI is 49.65 mGy and DLP is 1119.8 mGy-cm. This CT exam was performed using one or more of the following dose reduction techniques: automated exposure control, adjustment of the mA and/or kV according to patient size, and/or use of iterative reconstruction technique. COMPARISON: No relevant prior studies available. FINDINGS: Brain: Unremarkable. No acute intracranial hemorrhage, edema or abnormal mass-effect. Ventricles: Unremarkable. No ventriculomegaly. Bones/joints: Unremarkable. No acute fracture. Soft tissues: Unremarkable. Sinuses: Unremarkable as visualized. No acute sinusitis. Mastoid air cells: Unremarkable as visualized. No mastoid effusion. IMPRESSION: Negative head/brain CT.
[2022-05-12 02:41] LABS: Albumin 3.3 g/dL (3.5-5.0); Calcium 8.6 mg/dL (8.4-10.2); Potassium 4.4 mmol/L (3.5-5.1); Total Bilirubin 0.6 mg/dL (0.2-1.3); Total Protein 5.5 g/dL (6.3-8.2)
--- NOTE | 2022-05-12 02:42 | CT ---
EXAM: CT Angiography Head With Intravenous Contrast CLINICAL HISTORY: ITS.REASON CT Reason: stroke TECHNIQUE: Axial computed tomographic angiography images of the head with intravenous contrast. CTDI is 22 mGy and DLP is 274.6 mGy-cm. This CT exam was performed using one or more of the following dose reduction techniques: automated exposure control, adjustment of the mA and/or kV according to patient size, and/or use of iterative reconstruction technique. MIP reconstructed images were created and reviewed. COMPARISON: No relevant prior studies available. FINDINGS: Due to late timing, the opacification of the arteries is suboptimal. As visualized, no severe stenosis or major intracranial branch occlusion is identified. There is no evidence of aneurysm. Major intracranial venous structures enhance normally. IMPRESSION: Limited, negative head CTA. EXAM: CT Angiography Neck With Intravenous Contrast CLINICAL HISTORY: ITS.REASON CT Reason: stroke TECHNIQUE: Axial computed tomographic angiography images of the neck with intravenous contrast. CTDI is 22 mGy and DLP is 274.6 mGy-cm. This CT exam was performed using one or more of the following dose reduction techniques: automated exposure control, adjustment of the mA and/or kV according to patient size, and/or use of iterative reconstruction technique. MIP reconstructed images were created and reviewed. COMPARISON: No relevant prior studies available. FINDINGS: Due to late timing, there is suboptimal opacification of the arteries within the neck. As visualized, there is no clear evidence of severe stenosis, occlusion or dissection. IMPRESSION: Limited negative neck CTA.
[2022-05-12 02:47] LABS: Partial Thromboplastin Time 25.6 sec (22.0-30.0); Prothrombin Time 10.5 sec (9.0-12.0)
[2022-05-12] MEDS ORDERED: ONDANSETRON 4 MG/2 ML VIAL IVP STA (02:51)
[2022-05-12 03:26] LABS: Appearance,Urine Clear (Clear); Bilirubin,Urine Negative (Negative); Blood,Urine Negative (Negative); Color,Urine Light Yellow; Glucose,Urine (UA) Negative (Negative); Ketones,Urine Negative (Negative); Leukocyte Esterase,Urine Negative (Negative); Nitrite,Urine Negative (Negative); PH, Urine 6.5 (5.0-8.0); Protein,Urine Negative (Negative); Specific Gravity,Urine 1.041 (1.001-1.035); Urobilinogen,Urine <2.0 mg/dL (<2.0)
--- NOTE | 2022-05-12 03:51 | XR ---
EXAM: XR Chest, 1 View CLINICAL HISTORY: ITS.REASON XR Reason: altered mental status TECHNIQUE: Frontal view of the chest. COMPARISON: 07.06.21 FINDINGS: Lungs: No consolidation or mass. Pleural space: No acute findings Heart: No cardiomegaly. Bones/joints: No acute findings. IMPRESSION: No acute cardiopulmonary process.
[2022-05-12] MEDS ORDERED: LABETALOL 5 MG/ML VIAL MDV IVP PRN (04:06)
[2022-05-12] MEDS ORDERED: ASPIRIN 325 MG TAB PO STA (04:06)
[2022-05-12] MEDS ORDERED: SODIUM CHLORIDE 0.9% 1,000 ML IV SCH (04:15)
[2022-05-12 05:23] VITALS: TEMP 97.8
[2022-05-12 05:51] VITALS: RESP 18
--- NOTE | 2022-05-12 08:21 | P.HPIM ---
History of Present Illness This is a pleasant 52 female with past medical history of Coronary Artery Disease (CAD), GERD, hyperlipidemia, hypertension, coronary artery disease status post stent, panic disorder and PTSD Yesterday she was walking her poppy outside where she suddenly felt weakness in her right arm and right facial droop. Also some mild headache with slurred speech but no dizziness. Currently she feels improved however no service pager facial droop but there is still some weakness on the right side. No headache or dizziness currently. No chest pain or dyspnea. No diarrhea. No vomiting. She has chronic nausea. No urinary complaints. She smokes about half pack to one pack per day and she was counseled to quit but she wasn't sure and she does not want to smoking patch. Alcohol or illicit drugs. vitals are stable labs showing leukocytosis 13.4, and rest of cbc, and bmp are unremarkable , creatinine is 1.1, urinalysis is unremarkable. CT of the brain: No acute process. CTA of the head and neck: No evidence of severe stenosis or occlusion or dissection Chest x-ray: No acute cardiopulmonary disease. EKG showed normal sinus rhythm at 80 ppm with no significant ST-T changes. On admission she was given aspirin 325 mg and statin Review of Systems CONSTITUTIONAL: No fever, no malaise, no fatigue. HEENT: No recent visual problems or hearing problems. Denied any sore throat. CARDIOVASCULAR: No orthopnea, PND, no palpitations, no syncope. PULMONARY: No shortness of breath, no cough, no hemoptysis. GASTROINTESTINAL: No diarrhea, no nausea, no vomiting, no abdominal pain. Normoactive bowel sounds. NEUROLOGICAL: No headaches, no numbness. HEMATOLOGICAL: Denies any bleeding or petechiae. GENITOURINARY: Denies any burning micturition, frequency, or urgency. MUSCULOSKELETAL/RHEUMATOLOGICAL: Denies any joint pain, swelling, or any muscle pain. ENDOCRINE: Denies any polyuria or polydipsia. Past Medical History Past Medical History: Coronary Artery Disease (CAD), GERD/Reflux, Myocardial Infarction ([place]) Additional Past Medical History / Comment(s): Hyperlipidemia, Hypotension, constipation Last Myocardial Infarction Date:: 03/25/18 History of Any Multi-Drug Resistant Organisms: None Reported Past Surgical History: Heart Catheterization With Stent, Hysterectomy, Tonsillectomy Additional Past Surgical History / Comment(s): EYE SURGERY Past Anesthesia/Blood Transfusion Reactions: No Reported Reaction Date of Last Stent Placement:: 03/25/18 Past Psychological History: Anxiety, Panic Disorder, PTSD Additional Psychological History / Comment(s): Sees a psychiatrist regularly Smoking Status: Current every day smoker Past Alcohol Use History: None Reported Past Drug Use History: None Reported - Past Family History Mother Family Medical History: Coronary Artery Disease (CAD) Father Family Medical History: Coronary Artery Disease (CAD) Medications and Allergies Home Medications Medication Instructions Recorded Confirmed Type Omeprazole 20 mg PO DAILY 03/25/18 07/06/21 History ALPRAZolam [Xanax] 0.5 - 1 mg PO TID PRN 02/11/19 07/06/21 History Aspirin EC [Ecotrin Low Dose] 81 mg PO DAILY 02/11/19 07/06/21 History hydrOXYzine pamoate [hydrOXYzine 25 mg PO Q6H PRN 11/20/20 07/06/21 History PAMOATE] Nitroglycerin Sl Tabs [Nitrostat] 0.4 mg SUBLINGUAL Q5M PRN 12/01/20 07/06/21 H istory Prazosin HCl 1 mg PO HS 12/01/20 07/06/21 History Acetaminophen-Codeine 300-30mg 1 tab PO Q6H PRN 07/06/21 07/06/21 History [Tylenol w/codeine #3] Erythromycin Ophth Oint [Romycin 1 applic RIGHT EYE BID 07/06/21 07/06/21 History Ophth Oint] Ondansetron Odt [Zofran Odt] 4 mg PO Q12HR PRN 07/06/21 07/06/21 History Allergies Allergy/AdvReac Type Severity Reaction Status Date / Time dopamine Allergy "WAS TOLD Verified 07/06/21 06:18 BY HOPITAL NOT TO TAKE AGAIN " fentanyl Allergy Anaphylaxis Verified 07/06/21 06:18 Penicillins Allergy Dyspnea Verified 07/06/21 06:18 Tetracyclines Allergy "RUINED Verified 07/06/21 06:18 TEETH" ciprofloxacin [From Cipro] AdvReac Nausea & Verified 07/06/21 06:18 Vomiting & Diarrhea metoprolol AdvReac Nausea & Verified 07/06/21 06:18 Vomiting Physical Exam Vitals: Vital Signs Temp Pulse Pulse Resp BP BP Pulse Ox 05/12/22 05:49 97.8 F 54 L 18 110/71 97 05/12/22 05:22 97.8 F 60 20 110/71 97 05/12/22 05:00 57 L 20 118/74 97 05/12/22 04:45 62 20 122/85 98 05/12/22 04:30 64 22 118/74 98 05/12/22 04:15 71 20 111/75 98 05/12/22 03:45 60 20 117/72 98 05/12/22 03:30 69 20 116/86 96 05/12/22 03:15 70 20 113/85 97 05/12/22 03:00 73 20 118/74 96 05/12/22 02:45 72 20 129/87 97 05/12/22 02:30 73 20 148/90 97 05/12/22 02:15 76 22 147/90 97 05/12/22 01:54 97.4 F L 79 24 143/91 99 Intake and Output 05/11/22 05/12/22 05/12/22 22:59 06:59 14:59 Other: Weight 90.2 kg GENERAL: The patient is alert and oriented x3, not in any acute distress. Well developed, well nourished. HEENT: Pupils are round and equally reacting to light. EOMI. No scleral icterus. No conjunctival pallor. Normocephalic, atraumatic. No pharyngeal erythema. No thyromegaly. CARDIOVASCULAR: S1 and S2 present. No murmurs, rubs, or gallops. PULMONARY: Chest is clear to auscultation, no wheezing or crackles. ABDOMEN: Soft, nontender, nondistended, normoactive bowel sounds. No palpable organomegaly. MUSCULOSKELETAL: No joint swelling or deformity. EXTREMITIES: No cyanosis, clubbing, or pedal edema. -NEUROLOGICAL: Cranial nerves are grossly intact. She has weakness on the right upper lower extremity/5. Sensation intact. Meningeal signs are absent SKIN: No rashes. No petechiae Results CBC & Chem 7: 05/12/22 01:59 05/12/22 01:59 Labs: Abnormal Lab Results - Last 24 Hours (Table) 05/12/22 05/12/22 05/12/22 Range/Units 01:59 01:59 03:01 WBC 13.4 H (3.8-10.6) k/uL Lymphocytes # 5.1 H (1.0-4.8) k/uL Sodium 133 L (137-145) mmol/L Creatinine 1.19 H (0.52-1.04) mg/dL Total Protein 5.5 L (6.3-8.2) g/dL Albumin 3.3 L (3.5-5.0) g/dL Ur Specific [place] 1.041 H (1.001-1.035) Thrombosis Risk Factor Assmnt - Choose All That Apply Each Factor Represents 1 point: Age 41-60 years, Medical pt on bed rest, Obesity (BMI >25) Thrombosis Risk Factor Assessment Total Risk Factor Score: 3 Thrombosis Risk Factor Assessment Level: Moderate Risk Assessment and Plan Assessment: Acute stroke with right-sided hemiparesis and slurred speech Hypertension Hyperlipidemia History of coronary artery disease status post stent History of GERD History of panic disorder and PTSD Plan: This is a pleasant 52 years old female who presents with acute stroke signs and symptoms. Continue with aspirin Neurology consult Follow-up carotid duplex echocardiogram Check lipid panel. She follows up with Dr. Nicholas. Labs and medication were reviewed.. Continue same treatment. Continue with symptomatic treatment. Resume home medication. Monitor lytes and vitals. DVT and GI prophylaxis. Further recommendations depends on the clinical course of the patient DVT prophylaxis: Subcutaneous heparin GI Prophylaxis: Pepcid PT/OT: Pending Prognosis is guarded
[2022-05-12 08:45] VITALS: BP 112/75; PULSE 60
[2022-05-12] MEDS ORDERED: ATORVASTATIN 40 MG TAB PO SCH (09:00)
[2022-05-12] MEDS ORDERED: FAMOTIDINE 20 MG TAB PO SCH (09:00)
--- NOTE | 2022-05-12 09:57 | US ---
EXAMINATION TYPE: US carotid duplex BILAT DATE OF EXAM: 05/12/2022 COMPARISON: NONE CLINICAL HISTORY: Stenosis. Possible stroke EXAM MEASUREMENTS: RIGHT: Peak Systolic Velocity (PSV) cm/sec ----- Right CCA: 91.5 ----- Right ICA: 103.2 ----- Right ECA: 91.8 ICA/CCA ratio: 1.1 RIGHT: End Diastole cm/sec ----- Right CCA: 34.8 ----- Right ICA: 51.5 ----- Right ECA: 12.8 LEFT: Peak Systolic Velocity (PSV) cm/sec ----- Left CCA: 94.4 ----- Left ICA: 131.9 ----- Left ECA: 74.7 ICA/CCA ratio: 1.4 LEFT: End Diastole cm/sec ----- Left CCA: 39.1 ----- Left ICA: 58.9 ----- Left ECA: 0.0 VERTEBRALS (direction of flow): Right Vertebral: Antegrade Left Vertebral: Antegrade Rhythm: Normal IMPRESSION: 1. 50-69% stenosis of the left carotid bifurcation by peak systolic velocity. 2. Less than 50% stenosis of the right carotid bifurcation. Criteria for Assigning % of Stenosis / Diameter reduction (Estimation based on the indirect measurements of the internal carotid artery velocities (ICA PSV). 1. Normal (no stenosis)=ICA PSV < 125 cm/s: ratio < 2.0: ICA EDV<40 cm/s. 2. Less than 50% stenosis=ICA PSV < 125 cm/s: ratio < 2.0: ICA EDV<40 cm/s. 3. 50 to 69% stenosis=ICA PSV of 125 to 230 cm/s: ration 2.0 ? 4.0: ICA EDV 40-100 cm/s. 4. Greater than 70% stenosis to near occlusion= ICA PSV > 230 cm/s: ratio > 4.0: ICA EDV > 100 cm/s. 5. Near occlusion= ICA PSV velocities may be low or undetectable: variable ratio and ICA EDV. 6. Total occlusion=unable to detect flow.
--- NOTE | 2022-05-12 11:06 | P.CNNES ---
History of Present Illness Consult date: 05/12/22 Requesting physician: Oscar Doyle Reason for Consult: ischemic stroke vs TIA History of Present Illness: This is a 52-year-old woman with medical history of coronary artery disease status post stent, hyperlipidemia, panic attack and PTSD who presented to the emergency department because a right arm weakness and right facial weakness. It seems that the patient was walk-in her dog yesterday at approximately 1:20 AM t smooth and noticed that she is having difficulty moving her right arm and face weakness and numbness. Her is accompanied with her. In the ED was felt the patient had right upper extremity and weakness as well as facial symptoms. She stated when she noticed her symptoms she woke up her husb and from sleep. She denies any visual disturbance, any headache, any jerk in of any extremities, any urinary or bowel incontinence. Her symptoms last few hours. She is currently has an appointment for an ambulatory EEG this coming up Friday. Patient does smoke about a pack a day daily. Denies any alcohol use. Denies any illicit drug use. And of note immediately upon seeing the patient's she stated she does not want to be in the hospital and wants to get the workup as an outpatient. Of note she has been having transient bilateral upper extremity weakness for years and having twitching of her abdomen according to the . Also she had episodes of loss of consciousness. She had extensive testing in the past MRI of the brain, EEGs and she had prolonged EEGs in the past and was told no seizures. Was felt her episodes were due to her panic attack and PTSD. She was invalid by neurologists in the past but can't remember their names. Some of the workup in our facility during this hospital visit consisted of: Initial creatinine is 1.19. Sodium is 133. Otherwise rest of the chemistry panel is unremarkable. CT of the head is reported as negative head CT. I personally reviewed the CT of the head and I agree with the report. CT angiography of the head and neck was reported as limited negative CT of the head and neck and it's limited due to the late timing I guess of the contrast but it's reported as there is no evidence of severe stenosis, occlusion or dissection. There is no aneurysm. Stroke was activated and the ED physician spoke with the stroke attending (Dr. Chowdhury) and was felt the patient was a TPA candidate based on onset of the symptoms but the patient declined TPA because of the risks. Review of Systems Review of system: The 12 point system was reviewed and apparent positive and negative per HPI. Past Medical History Past Medical History: Coronary Artery Disease (CAD), GERD/Reflux, Myocardial Infarction ([place]) Additional Past Medical History / Comment(s): Hyperlipidemia, Hypotension, constipation Last Myocardial Infarction Date:: 03/25/18 History of Any Multi-Drug Resistant Organisms: None Reported Past Surgical History: Heart Catheterization With Stent, Hysterectomy, Tonsillectomy Additional Past Surgical History / Comment(s): EYE SURGERY Past Anesthesia/Blood Transfusion Reactions: No Reported Reaction Date of Last Stent Placement:: 03/25/18 Past Psychological History: Anxiety, Panic Disorder, PTSD Smoking Status: Current every day smoker Past Alcohol Use History: None Reported Past Drug Use History: None Reported - Past Family History Mother Family Medical History: Coronary Artery Disease (CAD) Father Family Medical History: Coronary Artery Disease (CAD) Medications and Allergies Home Medications Medication Instructions Recorded Confirmed Type Omeprazole 20 mg PO DAILY 03/25/18 07/06/21 History ALPRAZolam [Xanax] 0.5 - 1 mg PO TID PRN 02/11/19 07/06/21 History Aspirin EC [Ecotrin Low Dose] 81 mg PO DAILY 02/11/19 07/06/21 History hydrOXYzine pamoate [hydrOXYzine 25 mg PO Q6H PRN 11/20/20 07/06/21 History PAMOATE] Nitroglycerin Sl Tabs [Nitrostat] 0.4 mg SUBLINGUAL Q5M PRN 12/01/20 07/06/21 History Prazosin HCl 1 mg PO HS 12/01/20 07/06/21 History Acetaminophen-Codeine 300-30mg 1 tab PO Q6H PRN 07/06/21 07/06/21 History [Tylenol w/codeine #3] Erythromycin Ophth Oint [Romycin 1 applic RIGHT EYE BID 07/06/21 07/06/21 History Ophth Oint] Ondansetron Odt [Zofran Odt] 4 mg PO Q12HR PRN 07/06/21 07/06/21 History Allergies Allergy/AdvReac Type Severity Reaction Status Date / Time dopamine Allergy "WAS TOLD Verified 07/06/21 06:18 BY HOPITAL NOT TO TAKE AGAIN " fentanyl Allergy Anaphylaxis Verified 07/06/21 06:18 Penicillins Allergy Dyspnea Verified 07/06/21 06:18 Tetracyclines Allergy "RUINED Verified 07/06/21 06:18 TEETH" ciprofloxacin [From Cipro] AdvReac Nausea & Verified 07/06/21 06:18 Vomiting & Diarrhea metoprolol AdvReac Nausea & Verified 07/06/21 06:18 Vomiting Physical Examination - Vital Signs Vital Signs: Vital Signs Temp Pulse Pulse Resp BP BP Pulse Ox 05/12/22 07:43 93 L 05/12/22 05:49 97.8 F 54 L 18 110/71 97 05/12/22 05:22 97.8 F 60 20 110/71 97 05/12/22 05:00 57 L 20 118/74 97 05/12/22 04:45 62 20 122/85 98 05/12/22 04:30 64 22 118/74 98 05/12/22 04:15 71 20 111/75 98 05/12/22 03:45 60 20 117/72 98 05/12/22 03:30 69 20 116/86 96 05/12/22 03:15 70 20 113/85 97 05/12/22 03:00 73 20 118/74 96 05/12/22 02:45 72 20 129/87 97 05/12/22 02:30 73 20 148/90 97 05/12/22 02:15 76 22 147/90 97 05/12/22 01:54 97.4 F L 79 24 143/91 99 Intake and Output 05/11/22 05/12/22 05/12/22 22:59 06:59 14:59 Other: Weight 90.2 kg GENERAL: The patient is lying in bed and is not in acute distress. CHEST: The heart rate is regular rate rhythm. No murmurs to auscultation. LUNG: Clear to auscultation bilaterally no wheezing noted throughout. Not labored breathing. ABDOMEN/GI: Bowel sounds present in all 4 quadrants. No tenderness to palpation throughout. NEUROLOGICAL: Higher mental function: The patient is awake, alert, oriented to self, place and time. Patient is following commands. No aphasia and no neglect. Cranial nerves: The pupils are round, equal and reactive to light and accommodation. Visual mercer are full to confrontation throughout. Extraocular movement is intact no nystagmus is noted. Facial sensation is normal to touch throughout. The facial strength is normal throughout. Hearing is normal bilaterally to hand rub. Tongue is midline and moved [id number] without any difficulty. No dysarthria is noted. Shoulder shrug is normal bilaterally. Motor: The strength is 5 over 5 throughout. Normal tone and bulk. Cerebellum: Normal finger to nosebilaterally. Sensation: Sensation is normal to touch throughout. Reflexes (right/left): 2+ throughout. Plantars are downgoing bilaterally. Results - Laboratory Findings CBC and BMP: 05/12/22 01:59 05/12/22 01:59 Abnormal Lab Findings: Abnormal Labs 05/12/22 05/12/22 05/12/22 01:59 01:59 03:01 WBC 13.4 H Lymphocytes # 5.1 H Sodium 133 L Creatinine 1.19 H Total Protein 5.5 L Albumin 3.3 L Ur Specific [place] 1.041 H Assessment and Plan Assessment: Acute transient right arm weakness and facial weakness with numbness. Unknown cause. Patient had numerous transit bilateral upper extremity weakness, loss of consciousness with tremor of abdominal muscle and had extensive testing in the past including EEG MRI and was told was due to her panic attack/PTSD History of coronary artery disease status post S Hyperlipidemia Tobacco use Plan: In the ED the patient was given aspirin 325 one stenosis or on aspirin 325 daily as well as Lipitor for milligrams daily. 2-D echo, carotid duplex, lipid panel I ordered by the ED team is pending Continue every 4 hours neuro checks I placed the patient on cardiac monitoring PT OT and SPEECH/LANGUAGE THERAPIST are consulted We'll defer the rest of the medical management to the primary team For DVT prophylaxis I start the patient on subcu heparin 5000 units every 8 hours Recommend the patient to follow-up with a neurologist within 1-2 weeks as an outpatient Patient refused any further workup while in the hospital and wants everything to be done as an outpatient. Patient has an ambulatory 2.5 hour EEG according to her this coming Friday. Patient signed AMA form. The plan is discussed with patient, her and primary team. Hany Vu M.D. Neuro-hospitalist Time with Patient: Greater than 30
[2022-05-12] MEDS ORDERED: HEPARIN SODIUM,PORCINE/PF 5,000 UNIT/0.5 ML SYRINGE SQ SCH (16:00)
[2022-05-13] MEDS ORDERED: ASPIRIN 325 MG TAB PO SCH (09:00)
== END 2022-05-12 10:00 | disposition left against medical advice (07) | DRG 66 ==
LOC: EC 01:53 → 3SCARD 04:06
PROVIDERS: ADMIT Hospitalist; ATTEND Hospitalist
DX: I63.233 Cerebral infarction due to unspecified occlusion or stenosis of bilateral carotid arteries (principal); I10 Essential (primary) hypertension; G83.21 Monoplegia of upper limb affecting right dominant side; D72.829 Elevated white blood cell count, unspecified; R47.1 Dysarthria and anarthria; R25.8 Other abnormal involuntary movements; R29.810 Facial weakness; F41.0 Panic disorder [episodic paroxysmal anxiety]; I25.10 Atherosclerotic heart disease of native coronary artery without angina pectoris; F43.10 Post-traumatic stress disorder, unspecified; R20.0 Anesthesia of skin; E78.5 Hyperlipidemia, unspecified; F17.210 Nicotine dependence, cigarettes, uncomplicated; R25.3 Fasciculation; K21.9 Gastro-esophageal reflux disease without esophagitis; Z53.29 Procedure and treatment not carried out because of patient's decision for other reasons; R51.9 Headache, unspecified; R11.0 Nausea; R47.81 Slurred speech; Z95.5 Presence of coronary angioplasty implant and graft; I25.2 Old myocardial infarction; Z79.82 Long term (current) use of aspirin; Z88.0 Allergy status to penicillin; Z88.1 Allergy status to other antibiotic agents; Z88.5 Allergy status to narcotic agent; Z79.899 Other long term (current) drug therapy; Z91.048 Other nonmedicinal substance allergy status; Z90.710 Acquired absence of both cervix and uterus; Z90.89 Acquired absence of other organs; Z82.49 Family history of ischemic heart disease and other diseases of the circulatory system
CPT/HCPCS: 36415; 70450; 70496; 70498; 71045; 80053; 81003; 84484; 85025; 85610; 85730; 93005; 93880; 94760; 96374; 99291

== ENCOUNTER → 2022-05-15 | Outpatient (CLI) | payer OTHER ==
--- NOTE | 2022-05-16 19:27 | EEG ---
ELECTROENCEPHALOGRAM REPORT DATE OF SERVICE: 05/15/2022. CLINICAL HISTORY: This is a 52-year-old woman with repeated episode of stroke-like symptoms as well as body stiffening, stuttering. The video EEG is obtained to evaluate for seizure epileptiform activity. RELEVANT MEDICATION: Nothing reported on the EMR regarding antiepileptic drugs. EEG TYPE: A routine 21 channel EEG is performed with video using the 10/20 electrode placement system. DESCRIPTION: Wakefulness is only obtained. During awake state the posterior-dominant rhythm consists of low to moderate voltage of 8.5 hertz activity that is well modulated sustained. There is no sleep architecture seen. There is no focal slowing. INTERICTAL AND ICTAL: The patient had multiple episodes of stuttering and bilateral arm stiffening and it was notated by the cable installation technician, a few of them at 8:48 am and 8:50 are some of the examples without EEG correlation. There are no seizure epileptiform discharges. ACTIVATION PROCEDURE: Photic stimulation did not evoke a positive driving response. There is no abnormality during the photic stimulation. Hyperventilation is not performed. CLINICAL INTERPRETATION: This is a normal routine EEG. There is no focal slowing, epileptiform discharge or seizure on the EEG. The patient's symptoms of stiffening and stuttering are without any EEG correlation for seizure. Clinical correlation is recommended. If there continues to be concern for seizure, recommend ambulatory EEG as an outpatient. MMODL / IJN: [id number] /
== END ==
LOC: NEUROMAIN 07:49
PROVIDERS: ATTEND Family Medicine
DX: F98.5 Adult onset fluency disorder (principal); R39.81 Functional urinary incontinence; Z88.0 Allergy status to penicillin; Z88.1 Allergy status to other antibiotic agents; Z88.5 Allergy status to narcotic agent; Z88.8 Allergy status to other drugs, medicaments and biological substances; F17.200 Nicotine dependence, unspecified, uncomplicated
CPT/HCPCS: 95816

== ENCOUNTER 2022-09-05 16:34 | Emergency (ER) | payer OTHER ==
[2022-09-05 16:53] VITALS: BP 124/91; PULSE 88; RESP 16; TEMP 98.2
[2022-09-05] MEDS ORDERED: ONDANSETRON 4 MG/2 ML VIAL IVP STA (17:28)
--- NOTE | 2022-09-05 17:39 | ED ---
Altered Mental Status HPI - General Chief Complaint: Altered Mental Status Stated Complaint: Weakness,AMS Time Seen by Provider: 09/05/22 17:07 Source: patient, family Mode of arrival: wheelchair - History of Present Illness Initial Comments: This patient is a 52-year-old woman who presents with complaint that she is having generalized weakness, numbness, and difficulty with speech. The patient had been seen here on May 12 of this year for similar symptoms, she was seen by neurology and there was no evidence of stroke on the workup at that time, then was undergoing possible stroke workup. The patient states that the symptoms have been present intermittently since that time though they seem to be worse for the past approximately 4 days. Patient had follow-up with Dr. Ferris office but has not had repeat imaging done yet. Patient also is having significant nausea and some episodes of vomiting without hematemesis. MD Complaint: altered mental status -: days(s) Associated Symptoms: weakness, difficulty walking - Related Data Home Medications Medication Instructions Recorded Confirmed Omeprazole 20 mg PO DAILY 03/25/18 09/05/22 ALPRAZolam [Xanax] 0.5 - 1 mg PO Q6H PRN 02/11/19 09/05/22 Aspirin EC [Ecotrin Low Dose] 81 mg PO DAILY 02/11/19 09/05/22 Nitroglycerin Sl Tabs [Nitrostat] 0.4 mg SUBLINGUAL Q5M PRN 12/01/20 09/05/22 Ondansetron Odt [Zofran Odt] 4 mg PO Q12HR PRN 07/06/21 09/05/22 Prazosin HCl 2 mg PO DAILY PRN 09/05/22 09/05/22 Prazosin HCl 2 mg PO HS 09/05/22 09/05/22 Previous Rx's Medication Instructions Recorded Promethazine [Phenergan] 25 mg PO Q6HR #16 tablet 09/05/22 Allergies Allergy/AdvReac Type Severity Reaction Status Date / Time cefdinir Allergy Anaphylaxis Verified 09/05/22 20:14 dopamine Allergy "WAS TOLD Verified 09/05/22 20:14 BY [facility]ITAL NOT TO TAKE AGAIN " fentanyl Allergy Anaphylaxis Verified 09/05/22 20:14 hydrocodone Allergy Swelling Verified 09/05/22 20:14 Iodine and Iodide Containing Allergy Rash/Hives Verified 09/05/22 20:14 Produc Penicillins Allergy Anaphylaxis Verified 09/05/22 20:14 sertraline [From Zoloft] Allergy Diarrhea Verified 09/05/22 20:14 Tetracyclines Allergy "RUINED Verified 09/05/22 20:14 TEETH" ciprofloxacin [From Cipro] AdvReac Nausea & Verified 09/05/22 20:14 Vomiting & Diarrhea metoprolol AdvReac Nausea & Verified 09/05/22 20:14 Vomiting Review of Systems ROS Statement: Those systems with pertinent positive or pertinent negative responses have been documented in the HPI. ROS Other: All systems not noted in ROS Statement are negative. Constitutional: Reports: weakness. Denies: fever, chills Eyes: Denies: eye pain, vision change Respiratory: Denies: cough, dyspnea Cardiovascular: Denies: chest pain, palpitations, edema Gastrointestinal: Denies: abdominal pain, vomiting, diarrhea Genitourinary: Denies: dysuria, hematuria Musculoskeletal: Denies: back pain Skin: Denies: rash Neurological: Reports: weakness, numbness. Denies: headache Past Medical History Past Medical History: Coronary Artery Disease (CAD), Chest Pain / Angina, CVA/TIA, GERD/Reflux, Myocardial Infarction (SD) Additional Past Medical History / Comment(s): Hyperlipidemia, Hypotension, constipation Last Myocardial Infarction Date:: 03/25/18 History of Any Multi-Drug Resistant Organisms: None Reported Past Surgical History: Heart Catheterization, Heart Catheterization With Stent, Hysterectomy, Tonsillectomy Additional Past Surgical History / Comment(s): EYE SURGERY Past Anesthesia/Blood Transfusion Reactions: No Reported Reaction Date of Last Stent Placement:: 03/25/18 Past Psychological History: Anxiety, Panic Disorder, PTSD Smoking Status: Current every day smoker Past Alcohol Use History: None Reported Past Drug Use History: None Reported - Past Family History Mother Family Medical History: Coronary Artery Disease (CAD) Father Family Medical History: Coronary Artery Disease (CAD) General Exam General appearance: alert, in no apparent distress Head exam: Present: atraumatic, normocephalic Eye exam: Present: normal appearance, PERRL, EOMI. Absent: scleral icterus, conjunctival injection, nystagmus ENT exam: Present: normal oropharynx, mucous membranes dry Neck exam: Present: normal inspection, full ROM Respiratory exam: Present: normal lung sounds bilaterally. Absent: respiratory distress, wheezes, rales, rhonchi, stridor Cardiovascular Exam: Present: regular rate, normal rhythm, normal heart sounds. Absent: systolic murmur, diastolic murmur, rubs, gallop GI/Abdominal exam: Present: soft. Absent: distended, tenderness, guarding, rebound, rigid, mass Extremities exam: Present: normal inspection, normal capillary refill. Absent: pedal edema, calf tenderness Back exam: Present: normal inspection. Absent: CVA tenderness (R), CVA tenderness (L) Neurological exam: Present: alert, oriented X3, CN II-XII intact, other ( Patient's verbal and motor responses are delayed. This seems volitional. There is no dysarthria.). Absent: motor sensory deficit Skin exam: Present: warm, dry, intact, normal color. Absent: rash Course Vital Signs 09/05/22 16:47 Temperature 98.2 F Pulse Rate 88 Respiratory 16 Rate Blood Pressure 124/91 O2 Sat by Pulse 96 Oximetry Medical Decision Making - Medical Decision Making On reevaluation the patient, after her studies, she is neurologically normal. The patient's raised question whether these symptoms may be manifestation of PTSD. She states her counselor feels that they may be. The patient's presentation certainly would be consistent with some somatoform manifestations of stress. She further stated that the first episode of the symptoms she had was after her partner had a suicide attempt. She has been under a lot of stress this week as well. Patient is feeling better and would like to go home. She is encouraged to follow with her counselor as well as to follow with outpatient neurology. We discussed appropriate further care and follow-up as well as return parameters. - Lab Data Result diagrams: 09/05/22 17:44 09/05/22 17:44 Lab Results 09/05/22 09/05/22 09/05/22 Range/Units 17:44 17:44 17:44 WBC 9.5 (3.8-10.6) k/uL RBC 5.08 (3.80-5.40) m/uL Hgb 15.5 (11.4-16.0) gm/dL Hct 46.4 H (34.0-46.0) % MCV 91.2 (80.0-100.0) fL MCH 30.4 (25.0-35.0) pg MCHC 33.4 (31.0-37.0) g/dL RDW 12.8 (11.5-15.5) % Plt Count 307 (150-450) k/uL MPV 7.0 Neutrophils % 57 % Lymphocytes % 36 % Monocytes % 4 % Eosinophils % 1 % Basophils % 0 % Neutrophils # 5.3 (1.3-7.7) k/uL Lymphocytes # 3.4 (1.0-4.8) k/uL Monocytes # 0.4 (0-1.0) k/uL Eosinophils # 0.1 (0-0.7) k/uL Basophils # 0.0 (0-0.2) k/uL PT 10.3 (9.0-12.0) sec INR 0.9 (<1.2) APTT 25.3 (22.0-30.0) sec Sodium 139 (137-145) mmol/L Potassium 3.7 (3.5-5.1) mmol/L Chloride 105 (98-107) mmol/L Carbon Dioxide 25 (22-30) mmol/L Anion Gap 9 mmol/L BUN 3 L (7-17) mg/dL Creatinine 0.73 (0.52-1.04) mg/dL Est GFR (CKD-EPI)AfAm >90 (>60 ml/min/1.73 sqM) Est GFR (CKD-EPI)NonAf >90 (>60 ml/min/1.73 sqM) Glucose 95 (74-99) mg/dL Calcium 9.1 (8.4-10.2) mg/dL Total Bilirubin 0.6 (0.2-1.3) mg/dL AST 32 (14-36) U/L ALT 28 (4-34) U/L Alkaline Phosphatase 94 (38-126) U/L Troponin I (0.000-0.034) ng/mL Total Protein 6.1 L (6.3-8.2) g/dL Albumin 3.8 (3.5-5.0) g/dL 09/05/22 Range/Units 17:44 WBC (3.8-10.6) k/uL RBC (3.80-5.40) m/uL Hgb (11.4-16.0) gm/dL Hct (34.0-46.0) % MCV (80.0-100.0) fL MCH (25.0-35.0) pg MCHC (31.0-37.0) g/dL RDW (11.5-15.5) % Plt Count (150-450) k/uL MPV Neutrophils % % Lymphocytes % % Monocytes % % Eosinophils % % Basophils % % Neutrophils # (1.3-7.7) k/uL Lymphocytes # (1.0-4.8) k/uL Monocytes # (0-1.0) k/uL Eosinophils # (0-0.7) k/uL Basophils # (0-0.2) k/uL PT (9.0-12.0) sec INR (<1.2) APTT (22.0-30.0) sec Sodium (137-145) mmol/L Potassium (3.5-5.1) mmol/L Chloride (98-107) mmol/L Carbon Dioxide (22-30) mmol/L Anion Gap mmol/L BUN (7-17) mg/dL Creatinine (0.52-1.04) mg/dL Est GFR (CKD-EPI)AfAm (>60 ml/min/1.73 sqM) Est GFR (CKD-EPI)NonAf (>60 ml/min/1.73 sqM) Glucose (74-99) mg/dL Calcium (8.4-10.2) mg/dL Total Bilirubin (0.2-1.3) mg/dL AST (14-36) U/L ALT (4-34) U/L Alkaline Phosphatase (38-126) U/L Troponin I <0.012 (0.000-0.034) ng/mL Total Protein (6.3-8.2) g/dL Albumin (3.5-5.0) g/dL - EKG Data -: EKG Interpreted by Hi EKG shows normal: sinus rhythm, axis (Normal), intervals (Normal), QRS complexes (Normal), ST-T waves (Normal) Rate: normal (Rate 69 bpm) Interpretation: normal EKG Disposition Clinical Impression: Weakness Disposition: HOME SELF-CARE Condition: Good Instructions (If sedation given, give patient instructions): Weakness (ED) Prescriptions: Promethazine [Phenergan] 25 mg PO Q6HR #16 tablet Is patient prescribed a controlled substance at d/c from ED?: No Referrals: Nomi Hood III, MD [Primary Care Provider] - 1-2 days
--- NOTE | 2022-09-05 17:50 | XR ---
EXAMINATION: XR chest 1V portable DATE AND TIME: 09/05/2022 5:43 PM CLINICAL INDICATION: 52 F with altered mental status TECHNIQUE: AP upright portable COMPARISON: AP upright portable 05/12/2022 FINDINGS: The hemidiaphragms are mildly elevated consistent with relatively low lung inflation at the moment of x-ray exposure. This situation was also seen on the prior study. The upper and mid lung zones bilaterally lungs are clear. However, there are moderately-prominent bib asilar ill-defined opacities consistent with a clinical diagnosis of bibasilar pneumonia. The pleural spaces are negative. The cardiac silhouette is not enlarged. The remainder of the mediastinal silhouette is unremarkable. The skeletal structures and soft tissues are negative for acute findings. IMPRESSION: Bibasilar abnormalities.
[2022-09-05 17:54] LABS: Basophils % (A) 0 %; Eosinophils # (A) 0.1 k/uL (0-0.7); Eosinophils % (A) 1 %; HCT 46.4 % (34.0-46.0); HGB 15.5 gm/dL (11.4-16.0); Lymphocytes # (A) 3.4 k/uL (1.0-4.8); Lymphocytes % (A) 36 %; MCH 30.4 pg (25.0-35.0); MCHC 33.4 g/dL (31.0-37.0); MCV 91.2 fL (80.0-100.0); Monocytes # (A) 0.4 k/uL (0-1.0); Monocytes % (A) 4 %; Neutrophils # (A) 5.3 k/uL (1.3-7.7); Neutrophils % (A) 57 %; Platelet Count 307 k/uL (150-450); RBC 5.08 m/uL (3.80-5.40); RDW 12.8 % (11.5-15.5); WBC 9.5 k/uL (3.8-10.6)
[2022-09-05 17:59] LABS: INR 0.9 (<1.2); Partial Thromboplastin Time 25.3 sec (22.0-30.0); Prothrombin Time 10.3 sec (9.0-12.0)
[2022-09-05 18:02] LABS: Potassium 3.7 mmol/L (3.5-5.1)
[2022-09-05 18:03] LABS: ALT 28 U/L (4-34); AST 32 U/L (14-36); African American GFR (CKD) >90 (>60 ml/min/1.73 sqM); Albumin 3.8 g/dL (3.5-5.0); Alkaline Phosphatase 94 U/L (38-126); Anion Gap 9 mmol/L; Blood Urea Nitrogen 3 mg/dL (7-17); Calcium 9.1 mg/dL (8.4-10.2); Carbon Dioxide 25 mmol/L (22-30); Chloride 105 mmol/L (98-107); Glucose 95 mg/dL (74-99); Non-African American GFR(CKD) >90 (>60 ml/min/1.73 sqM); Sodium 139 mmol/L (137-145); Total Bilirubin 0.6 mg/dL (0.2-1.3); Total Protein 6.1 g/dL (6.3-8.2)
--- NOTE | 2022-09-05 18:35 | CT ---
EXAMINATION: CT brain wo con DATE AND TIME: 09/05/2022 6:14 PM CLINICAL INDICATION: Altered mental status TECHNIQUE: Standard departmental protocol.; 1143.4 mGy-cm COMPARISON: 05/12/2022 FINDINGS: The calvarium is intact. There is no intracranial hemorrhage. There is no intracranial mass or mass effect. No definite new intra-axial or extra-axial attenuation defect. The paranasal sinuses, middle ear cavities, and mastoid sinus air cells are clear. The orbits are unremarkable. IMPRESSION: No acute process.
[2022-09-05] MEDS ORDERED: PROMETHAZINE 25 MG TAB PO STA (19:32)
== END 2022-09-05 21:51 | disposition home or self-care (01) ==
LOC: EC 16:34
DX: R53.1 Weakness (principal); I25.10 Atherosclerotic heart disease of native coronary artery without angina pectoris; Z86.73 Personal history of transient ischemic attack (TIA), and cerebral infarction without residual deficits; I25.2 Old myocardial infarction; F41.9 Anxiety disorder, unspecified; F17.200 Nicotine dependence, unspecified, uncomplicated; Z88.1 Allergy status to other antibiotic agents; Z88.8 Allergy status to other drugs, medicaments and biological substances; Z88.0 Allergy status to penicillin; Z79.82 Long term (current) use of aspirin; Z79.899 Other long term (current) drug therapy
CPT/HCPCS: 36415; 80053; 84484; 85025; 85610; 85730; 71045; 70450; 99285; 96374; J2405; 93005